=== PATIENT | female | born 1975 | race Caucasian/White ===

== ENCOUNTER 2016-03-26 17:26 | Emergency (ER) | payer MEDICAID, OTHER ==
[2016-03-26] MEDS ORDERED: MORPHINE 2 MG/ML 1ML SYRINGE As Ordered ONE ×2 (18:56→20:46)
[2016-03-26] MEDS ORDERED: METOCLOPRAMIDE INJ 10MG/2ML VIAL (J2765) As Ordered ONE (18:56)
[2016-03-26 19:24] LABS: BASO % 0.4 % (0.0-1.0); EOS # 0.2 K/mm3 (0.0-0.50); EOS % 2.6 % (0.0-3.0); LARGE UNSTAINED CELL # 0.1 K/mm3 (0.0-0.4); LARGE UNSTAINED CELL % 1.6 % (0.0-4.0); LYMPH # 2.2 K/mm3 (1.5-4.5); LYMPH % 36.4 % (24.0-44.0); MEAN CORPUSCULAR HEMOGLOBIN 29.2 pg (27.0-33.0); MEAN CORPUSCULAR HGB CONC 34.2 g/dl (32.0-36.5); MEAN CORPUSCULAR VOLUME 85.3 fl (80.0-96.0); MONO # 0.3 K/mm3 (0.0-0.8); MONO % 5.2 % (0.0-5.0); NEUTROPHILS # 3.2 K/mm3 (1.8-7.7); NEUTROPHILS % 53.8 % (36.0-66.0); PLATELET COUNT, AUTOMATED 187 k/mm3 (150-450); WHITE BLOOD COUNT 5.9 K/mm3 (4.0-10.0)
[2016-03-26 19:32] LABS: INR 1.02
[2016-03-26] MEDS ORDERED: methylPREDNISolone INJ 125 MG/2 ML VIAL (J2930) As Ordered ONE (19:37)
[2016-03-26] MEDS ORDERED: diphenhydrAMINE INJ 50MG/ML VIAL (J1200) As Ordered ONE (19:37)
[2016-03-26 19:50] LABS: ALBUMIN 4.3 GM/DL (3.2-5.2); ALBUMIN/GLOBULIN RATIO 1.16 (1.00-1.93); ALKALINE PHOSPHATASE 71 U/L (45-117); ALT/SGPT 37 U/L (12-78); AMYLASE 60 U/L (25-115); ANION GAP 8 MEQ/L (8-16); AST/SGOT 15 U/L (15-37); BILIRUBIN,DIRECT < 0.1 MG/DL (0.0-0.2); BILIRUBIN,TOTAL 0.3 MG/DL (0.2-1.0); BLOOD UREA NITROGEN 18 MG/DL (7-18); CALCIUM LEVEL 8.9 MG/DL (8.5-10.1); CARBON DIOXIDE LEVEL 29 MEQ/L (21-32); CHLORIDE LEVEL 104 MEQ/L (98-107); CREATININE FOR GFR 0.66 MG/DL (0.55-1.02); GLOMERULAR FILTRATION RATE > 60.0 (>60); GLUCOSE, FASTING 84 MG/DL (70-105); POTASSIUM SERUM 3.6 MEQ/L (3.5-5.1); SODIUM LEVEL 141 MEQ/L (136-145)
[2016-03-26] MEDS ORDERED: GASTROGRAFIN SOLUTION 30ML (Q9963) As Ordered ONE (19:50)
[2016-03-26] MEDS ORDERED: ISOVUE-370 76% 100ML VIAL (Q9967) As Ordered ONE (21:32)
[2016-03-26] MEDS ORDERED: FAMOTIDINE/NS 20 MG/50 ML BAG (S0028) As Ordered ONE (22:00)
--- NOTE | 2016-03-26 23:30 | REPUSA ---
CT of the abdomen and pelvis without contrast Clinical statement: Pain. Technique: Multiple axial CT images were obtained from the base of the lungs to the floor of the pelv is utilizing 5 mm axial slices after administration of oral contrast. Coronal and sagittal reconstruc tions were also obtained. No comparison is available. Findings: Chest: The visualized lung bases are clear. Abdomen: The kidneys are normal in size bilaterally. There is no evidence of hydronephrosis or nephro lithiasis. The liver, spleen, pancreas, and adrenal glands are unremarkable. The aorta demonstrates n ormal caliber and contour. There is no abdominal lymphadenopathy or ascites. Pelvis: The bowel is unremarkable, with no obstructive or inflammatory changes. The urinary bladder i s within normal limits. There is no pelvic lymphadenopathy or ascites. The other pelvic structures ap pear unremarkable. Bones: There are no suspicious osseous abnormalities seen. Impression: Unremarkable CT examination of the abdomen and pelvis.
[2016-03-27] MEDS ORDERED: NITROFURANTOIN (MACROBID) 100 MG CAP As Ordered ONE (00:25)
--- NOTE | 2016-03-27 00:35 | EDDOCDS ---
Physician Documentation [facility] Name: Efrain Carreon Age: 40 yrs Sex: Female : 1975 Arrival Date: 03/26/2016 Time: 17:26 Bed I2 / M2 Private MD: NO PRIMARY PHYSICIAN, . Disposition: 03/27/16 00:25 Discharged to Home/Self Care. Impression: Hemorrhage of anus and rectum, Urinary tract infection, site not specified. - Condition is Stable. - Discharge Instructions: Gastrointestinal Bleeding, Urinary Tract Infection. - Prescriptions for Macrobid 100 mg Oral Capsule - take 100 milligram by ORAL route every 12 hours for 10 days; 20 capsule. - Medication Reconciliation, Local Pharmacy Hours form. - Follow up: Jose Rogers MD; When: 1 - 2 days; Reason: Recheck today's complaints, Continuance of care. Follow up: [facility]; When: 2 - 3 days; Reason: Recheck today's complaints, Continuance of care. - Problem is new. - Symptoms have improved. - Notes: USE MEDICATION INSTRUCTED, CALL DR ROGERS TOMORROW TO SCHEDULE FOLLOW UP FOR COLONOSCOPY, RETURN TO THE ER IF BLEEDING WORSENS, SHORTNESS OF BREATH, DIZZINESS, INCREASING PAIN OR OTHER CONCERNING SYMPTOMS ARISE Historical: - Allergies: IV Contrast; Zofran; Zosyn; - Home Meds: 1. none - PMHx: Asthma; Constipation, Chronic; - PSHx: Gastric Bypass (2014); Cholecystectomy; [partial hysterectomy; Appendectomy; Adenoidectomy; Tonsillectomy; - Social history: Smoking status: Patient states was never smoker of tobacco. No barriers to communication noted, The patient speaks fluent Pashto, Speaks appropriately for age. - Family history: Not pertinent. - : The pt / caregiver states he / she is not on anticoagulants. Home medication list is obtained from the patient. - Exposure Risk Screening:: None identified. 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 3 in. (160.02 cm) (R); Pain 9/10; 20:54 BP 125 / 67; Pulse 77; Resp 18; Pulse Ox 100% on R/A; Pain 9/10; kc3 20:54 Pain 9/10; kc3 21:41 BP 114 / 61; Pulse 75; Resp 18; Pulse Ox 97% on R/A; Pain 6/10; kc3 03/27 00:31 BP 116 / 56 RA Sitting (auto/reg); Pulse 68 MON; Resp 18 S; Temp 99.5(TE); Pulse Ox 96% ka4 on R/A; Pain 5/10; 03/26 17:28 Body Mass Index 22.32 (57.15 kg, 160.02 cm) gr2 MDM: 03/26 18:45 Undress patient appropriately for examination ordered. ck7 18:45 IV Saline Lock ordered. ck7 18:45 NS 0.9% 1000 ml IV at bolus once ordered. ck7 18:45 Metoclopramide 10 mg IV at 40 mg/hr once over 15 mins ordered. ck7 18:46 morphine 2 mg IVP once ordered. ck7 18:46 NOTHING BY MOUTH+DIET ordered. EDMS 18:47 Amylase Ordered. EDMS 18:47 Basic Metabolic Profile Ordered. EDMS 18:47 CBC with Diff Ordered. EDMS 18:47 Lipase Ordered. EDMS 18:47 Liver Profile Ordered. EDMS 18:47 Urinalysis Ordered. EDMS 18:47 Pt & Aptt Ordered. EDMS 18:47 Urine Culture Ordered. EDMS 19:20 Financial registration complete. [email or web address] 19:31 diphenhydrAMINE 50 mg IVP once ordered. ck7 19:31 Solu-MEDROL 125 mg IVP once ordered. ck7 19:50 Diatrizoate Meglumine & Sodium Liquid 10 ml PO once; mix in 290cc of water ordered. mgs 19:50 Diatrizoate Meglumine & Sodium Liquid 10 ml PO once; mix in 290cc of water ordered. mgs 20:07 CBC with Diff Reviewed. ck7 20:07 Urinalysis Reviewed. ck7 20:07 Amylase Reviewed. ck7 20:07 Basic Metabolic Profile Reviewed. ck7 20:07 Lipase Reviewed. ck7 20:07 Liver Profile Reviewed. ck7 20:07 Pt & Aptt Reviewed. ck7 20:45 morphine 2 mg IVP once ordered. ck7 20:50 [facility] Payment Agreement was scanned into [employer] and attached to record. [email or web address] 21:58 Famotidine 20 mg IVPB once over 30 mins; dilute in 50mL of NS ordered. ck7 22:17 CT ABD & PELVIS W/O CONTRAST Ordered. EDMS 03/27 00:18 CT ABD & PELVIS W/O CONTRAST Reviewed. ck7 00:23 Nitrofurantoin 100 mg PO once ordered. ck7 Administered Medications: 03/26 19:12 Drug: NS 0.9% 1000 ml [sodium chloride 0.9 % injection solution] Route: IV; Rate: dsf bolus; Site: left antecubital; 20:54 Follow up: IV Status: Completed infusion kc3 19:12 Drug: Metoclopramide 10 mg [metoclopramide 5 mg/mL injection solution] Route: IV; Rate: dsf 40 mg/hr; Infused Over: 15 mins; Site: left antecubital; 20:54 Follow up: Response: Nausea is decreased; IV Status: Completed infusion kc3 19:12 Drug: morphine 2 mg [morphine 2 mg/mL intravenous cartridge (1 mL)] Route: IVP; Site: dsf left antecubital; 20:54 Follow up: Pain 9/10 Adult; Response: Pain is unchanged, physician notified kc3 19:48 Drug: diphenhydrAMINE 50 mg [diphenhydramine 50 mg/mL injection solution (1 mL)] Route: mgs IVP; Site: left antecubital; 20:53 Follow up: Response: No Adverse Reaction kc3 19:48 Drug: Solu-MEDROL 125 mg [Solu-Medrol 500 mg intravenous solution (125 mg)] Route: IVP; mgs Site: right antecubital; 20:54 Follow up: Response: No Adverse Reaction kc3 20:00 Drug: Diatrizoate Meglumine & Sodium 10 ml [diatrizoate meglumine and diat.sodium 66 dsf %-10 % oral solution (10 mL)] Route: PO; 20:42 Drug: Diatrizoate Meglumine & Sodium 10 ml [diatrizoate meglumine and diat.sodium 66 kc3 %-10 % oral solution (10 mL)] Route: PO; 20:50 Drug: morphine 2 mg [morphine 2 mg/mL intravenous cartridge (1 mL)] Route: IVP; Site: kc3 left antecubital; 21:41 Follow up: Response: Pain is decreased; see VS for followup kc3 22:08 Drug: Famotidine 20 mg [famotidine 10 mg/mL intravenous solution] Route: IVPB; Infused kc3 Over: 30 mins; Site: left antecubital; 03/27 00:25 Follow up: IV Status: Completed infusion; IV Intake: 50ml dsf 00:27 Drug: Nitrofurantoin 100 mg Route: PO; dsf Signatures: Dispatcher [employer] EDMS Iman Moreno, RN RN srm Donovan Han, RPA-C [id number]-[id number] Kaylee Garcia,PACKAGING SUPERVISOR PACKAGING SUPERVISOR ka4 Gildardo TorresRN RN Clarisa Arenas RN RN kc3 Maria T Christine, Reg Reg ks16 Cat Ortiz RN dsf The chart was reviewed and I authenticate all verbal orders and agree with the evaluation and treatment provided.Corrections: (The following items were deleted from the chart) 03/26 22:17 19:32 CT ABD & PELVIS WITH CONTRAST+CT ordered. EDMS EDMS Attachments: 20:50 [facility] Payment Agreement [email or web address] MTDD
--- NOTE | 2016-03-27 00:35 | EDDOCDS ---
Nurse's Notes [facility] Name: Efrain Carreon Age: 40 yrs Sex: Female : 1975 Arrival Date: 03/26/2016 Time: 17:26 Bed I2 / M2 Private MD: NO PRIMARY PHYSICIAN, . Diagnosis: Hemorrhage of anus and rectum;Urinary tract infection, site not specified Presentation: 03/26 17:31 Presenting complaint: Patient states: Vaginal bleeding all of a sudden tonight. became srm nausea after seeing blood. had hysterectomy 3 yrs ago. had gastric bypass 1.5 yr ago and has hx of constipation since. lower abd pain for a long time. Risk factors: The patient reports no loss of conciousness prior to arrival. The patient has had a hysterectomy less than five years ago. This patient has not begun menopause. Adult Sepsis Screening: The patient does not have new or worsening altered mentation. Patient's respiratory rate is less than 22. Systolic blood pressure is greater than 100. Patient has a qSOFA score of 0- Negative Sepsis Screen. Suicide/Homicide risk assessment- the patient denies having any suicidal and/or homicidal ideations and does not present with any other emotional, behavioral or mental health complaints. Status: Patient is not a medical service representative or dependent. Transition of care: patient was not received from another setting of care. 17:31 Acuity: LISS Level 3 [facility] 17:31 Method Of Arrival: Walkin/Carried/Asstd srm Triage Assessment: 17:34 General: Appears in no apparent distress, Behavior is appropriate for age, cooperative. srm Pain: Pain currently is 9 out of 10 on a pain scale. : Reports vaginal bleeding that is heavy flow. 17:34 HIV screening NA for this visit Offered previously. GI: other dry heaves. 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 none - PMHx: Asthma; Constipation, Chronic; - PSHx: Gastric Bypass (2014); Cholecystectomy; [partial hysterectomy; Appendectomy; Adenoidectomy; Tonsillectomy; - Social history: Smoking status: Patient states was never smoker of tobacco. No barriers to communication noted, The patient speaks fluent Romanian, Speaks appropriately for age. - Family history: Not pertinent. - : The pt / caregiver states he / she is not on anticoagulants. Home medication list is obtained from the patient. - Exposure Risk Screening:: None identified. Screenin:55 Screening information is obtained from the patient. Fall risk: No risks identified. kc3 Assistance ADL's: requires no assistance with activities of daily living. Abuse/DV Screen: The patient / caregiver reports he/she is: not in a situation that causes fear, pain or injury. Nutritional screening: No deficits noted. home support is adequate. 22:56 Advance Directives: Currently, there is no health care proxy. dsf Assessment: 20:52 General: Appears in no apparent distress, comfortable, Behavior is appropriate for age, kc3 cooperative. Pain: Location: abdomen Pain currently is 9 out of 10 on a pain scale. Neurological: Level of Consciousness is awake, alert, obeys commands, Oriented to person, place, time. Respiratory: Respiratory effort is even, unlabored. GI: Reports lower abdominal pain, nausea. Derm: Skin is pink, warm & dry. Musculoskeletal: Circulation, motion, and sensation intact. 21:40 General: Appears in no apparent distress, comfortable, Behavior is appropriate for age, kc3 cooperative, Pt reports pain has decreased.. Neurological: Level of Consciousness is awake, alert, obeys commands, Oriented to person, place, time. Respiratory: Respiratory effort is even, unlabored. GI: Reports nausea. Derm: Skin is pink, warm & dry. Musculoskeletal: Circulation, motion, and sensation intact. 22:34 General: rr even and unlabored, skin w/d/i. a&ox3, offers no complaints.. af2 22:44 General: Appears in no apparent distress, comfortable, Behavior is appropriate for age, dsf cooperative. Pain: Pain currently is 6 out of 10 on a pain scale. Neurological: Level of Consciousness is awake, alert. Cardiovascular: Capillary refill < 3 seconds. Respiratory: Airway is patent Respiratory effort is even, unlabored, Respiratory pattern is regular, symmetrical. GI: Denies nausea. Derm: Skin is pink, warm & dry. 22:56 General: pt just returned from [place] . dsf 03/27 00:32 General: Appears in no apparent distress, comfortable, Behavior is appropriate for age, ka4 cooperative, pleasant. Respiratory: Airway is patent Respiratory effort is even, unlabored, Respiratory pattern is regular, symmetrical. Derm: Skin is pink, warm & dry. Vital Signs: 03/26 17:28 BP 116 / 64; Pulse 95; Resp 18 S; Temp 96.9(T); Pulse Ox 100% on R/A; Weight 57.15 kg gr2 (R); Height 5 ft. 3 in. (160.02 cm) (R); Pain 9/10; 20:54 BP 125 / 67; Pulse 77; Resp 18; Pulse Ox 100% on R/A; Pain 9/10; kc3 20:54 Pain 9/10; kc3 21:41 BP 114 / 61; Pulse 75; Resp 18; Pulse Ox 97% on R/A; Pain 6/10; kc3 03/27 00:31 BP 116 / 56 RA Sitting (auto/reg); Pulse 68 MON; Resp 18 S; Temp 99.5(TE); Pulse Ox 96% ka4 on R/A; Pain 5/10; 03/26 17:28 Body Mass Index 22.32 (57.15 kg, 160.02 cm) gr2 Vitals: 03/26 17:28 Log In Time: March 26, 2016 at 17:28. RN notified that patient meets Red Flag gr2 criteria. ED Course: 17:27 Patient visited by Yamil Vanegas. gr2 17:27 Patient moved to Waiting gr2 17:28 NO PRIMARY PHYSICIAN, . is Private Physician. gr2 17:29 Patient visited by Yamil Vanegas. gr2 17:30 Patient moved to Pre RCE gr2 17:33 Triage Initiated srm 17:41 Patient moved to Triage 2 srm 18:42 Donovan Han RPA-C is PHCP. ck7 18:42 Jeffrey Hannah MD is Attending Physician. ck7 18:42 Patient visited by Donovan Han RPA-C. ck7 18:49 Patient moved to I2 / M2 mdr 18:53 Pt greeted and oriented to ED. Patient advised of names of staff involved in care, ajs location of call cleaning, wait times and NPO status. Accompanied by Family Member, Patient has correct armband on for positive identification. Placed in gown. Bed in low position. Call light in reach. Side rails up X 1. 18:54 Patient visited by Xenia Israel. ajs 19:05 Inserted saline lock: 20 gauge in left antecubital area The patient tolerated the kcs procedure well. 19:12 Pt & Aptt Sent. dsf 19:12 Amylase Sent. dsf 19:12 Basic Metabolic Profile Sent. dsf 19:12 CBC with Diff Sent. dsf 19:12 Lipase Sent. dsf 19:12 Liver Profile Sent. dsf 19:30 Patient visited by Donovan Han RPA-C. ck7 20:06 Patient visited by Donovan Han RPA-C. ck7 20:44 Patient visited by Donovan Han RPA-C. ck7 20:50 [facility] Payment Agreement was scanned into [employer] and attached to record. ks16 20:55 Patient name changed from Efrain\S\\S\Lajuett\S\ to Efrain\S\ \S\Lajuett. EDMS 20:55 The patient / caregiver is instructed regarding the plan of care and ED course. kc3 21:38 Patient visited by Donovan Han RPA-C. ck7 21:41 Patient visited by Clarisa Boles,FEDERICA. kc3 22:34 Patient visited by Milagros Jones,FEDERICA. af2 22:36 Patient visited by Milagros Jones,FEDERICA. af2 22:45 Patient visited by Cat Ortiz,FEDERICA. dsf 22:56 No procedures done that require assistance. dsf 23:25 Patient visited by Donovan Han RPA-C. ck7 23:44 Patient visited by Xenia Israel. ajs 03/27 00:15 CT ABD & PELVIS W/O CONTRAST Returned. EDMS 00:18 Patient visited by Donovan Han RPA-C. ck7 00:23 Jose Rogers MD is Referral Physician. ck7 00:24 [facility] is Referral Physician. ck7 00:33 Discontinued IV lock intact, bleeding controlled, pressure dressing applied, No ka4 redness/swelling at site. Administered Medications: 03/26 19:12 Drug: NS 0.9% 1000 ml [sodium chloride 0.9 % injection solution] Route: IV; Rate: dsf bolus; Site: left antecubital; 20:54 Follow up: IV Status: Completed infusion kc3 19:12 Drug: Metoclopramide 10 mg [metoclopramide 5 mg/mL injection solution] Route: IV; Rate: dsf 40 mg/hr; Infused Over: 15 mins; Site: left antecubital; 20:54 Follow up: Response: Nausea is decreased; IV Status: Completed infusion kc3 19:12 Drug: morphine 2 mg [morphine 2 mg/mL intravenous cartridge (1 mL)] Route: IVP; Site: dsf left antecubital; 20:54 Follow up: Pain 11/17 Adult; Response: Pain is unchanged, physician notified kc3 19:48 Drug: diphenhydrAMINE 50 mg [diphenhydramine 50 mg/mL injection solution (1 mL)] Route: mgs IVP; Site: left antecubital; 20:53 Follow up: Response: No Adverse Reaction kc3 19:48 Drug: Solu-MEDROL 125 mg [Solu-Medrol 500 mg intravenous solution (125 mg)] Route: IVP; mgs Site: right antecubital; 20:54 Follow up: Response: No Adverse Reaction kc3 20:00 Drug: Diatrizoate Meglumine & Sodium 10 ml [diatrizoate meglumine and diat.sodium 66 dsf %-10 % oral solution (10 mL)] Route: PO; 20:42 Drug: Diatrizoate Meglumine & Sodium 10 ml [diatrizoate meglumine and diat.sodium 66 kc3 %-10 % oral solution (10 mL)] Route: PO; 20:50 Drug: morphine 2 mg [morphine 2 mg/mL intravenous cartridge (1 mL)] Route: IVP; Site: kc3 left antecubital; 21:41 Follow up: Response: Pain is decreased; see VS for followup kc3 22:08 Drug: Famotidine 20 mg [famotidine 10 mg/mL intravenous solution] Route: IVPB; Infused kc3 Over: 30 mins; Site: left antecubital; 03/27 00:25 Follow up: IV Status: Completed infusion; IV Intake: 50ml dsf 00:27 Drug: Nitrofurantoin 100 mg Route: PO; dsf Intake: 00:25 IV: 50.00ml; Total: 50.00ml. dsf Order Results: Lab Order: Amylase; SPEC'M 03/26/16 19:07 Test: AMYLASE; Value: 60; Range: 25-115; Units: U/L; Status: F Lab Order: Basic Metabolic Profile; SPEC'M 03/26/16 19:07 Test: GLUCOSE, FASTING; Value: 84; Range: 70-105; Units: MG/DL; Status: F Test: BLOOD UREA NITROGEN; Value: 18; Range: 7-18; Units: MG/DL; Status: F Test: CREATININE FOR GFR; Value: 0.66; Range: 0.55-1.02; Units: MG/DL; Status: F Test: GLOMERULAR FILTRATION RATE; Value: > 60.0; Range: >60; Status: F Test: SODIUM LEVEL; Value: 141; Range: 136-145; Units: MEQ/L; Status: F Test: POTASSIUM SERUM; Value: 3.6; Range: 3.5-5.1; Units: MEQ/L; Status: F Test: CHLORIDE LEVEL; Value: 104; Range: 98-107; Units: MEQ/L; Status: F Test: CARBON DIOXIDE LEVEL; Value: 29; Range: 21-32; Units: MEQ/L; Status: F Test: ANION GAP; Value: 8; Range: 8-16; Units: MEQ/L; Status: F Test: CALCIUM LEVEL; Value: 8.9; Range: 8.5-10.1; Units: MG/DL; Status: F Test Note: ; Units are mL/min/1.73 m2 Chronic Kidney Disease Staging per NKF: Stage I & II GFR >=60 Normal to Mildly Decreased Stage III GFR 30-59 Moderately Decreased Stage IV GFR 15-29 Severely Decreased Stage V GFR <15 Very Little GFR Left ESRD GFR <15 on STAFFING OPERATIONS MANAGER Lab Order: CBC with Diff; SPEC'M 03/26/16 19:07 Test: WHITE BLOOD COUNT; Value: 5.9; Range: 4.0-10.0; Units: K/mm3; Status: F Test: RED BLOOD COUNT; Value: 4.91; Range: 4.00-5.40; Units: M/mm3; Status: F Test: HEMOGLOBIN; Value: 14.3; Range: 12.0-16.0; Units: g/dl; Status: F Test: HEMATOCRIT; Value: 41.9; Range: 36.0-47.0; Units: %; Status: F Test: MEAN CORPUSCULAR VOLUME; Value: 85.3; Range: 80.0-96.0; Units: fl; Status: F Test: MEAN CORPUSCULAR HEMOGLOBIN; Value: 29.2; Range: 27.0-33.0; Units: pg; Status: F Test: MEAN CORPUSCULAR HGB CONC; Value: 34.2; Range: 32.0-36.5; Units: g/dl; Status: F Test: RED CELL DISTRIBUTION WIDTH; Value: 12.0; Range: 11.5-14.5; Units: %; Status: F Test: PLATELET COUNT, AUTOMATED; Value: 187; Range: 150-450; Units: k/mm3; Status: F Test: NEUTROPHILS %; Value: 53.8; Range: 36.0-66.0; Units: %; Status: F Test: LYMPH %; Value: 36.4; Range: 24.0-44.0; Units: %; Status: F Test: MONO %; Value: 5.2; Range: 0.0-5.0; Abnormal: Above high normal; Units: %; Status: F Test: EOS %; Value: 2.6; Range: 0.0-3.0; Units: %; Status: F Test: BASO %; Value: 0.4; Range: 0.0-1.0; Units: %; Status: F Test: LARGE UNSTAINED CELL %; Value: 1.6; Range: 0.0-4.0; Units: %; Status: F Test: NEUTROPHILS #; Value: 3.2; Range: 1.8-7.7; Units: K/mm3; Status: F Test: LYMPH #; Value: 2.2; Range: 1.5-4.5; Units: K/mm3; Status: F Test: MONO #; Value: 0.3; Range: 0.0-0.8; Units: K/mm3; Status: F Test: EOS #; Value: 0.2; Range: 0.0-0.50; Units: K/mm3; Status: F Test: BASO #; Value: 0.0; Range: 0.0-0.2; Units: K/mm3; Status: F Test: LARGE UNSTAINED CELL #; Value: 0.1; Range: 0.0-0.4; Units: K/mm3; Status: F Lab Order: Lipase; SPEC'M 03/26/16 19:07 Test: LIPASE; Value: 224; Range: 73-393; Units: U/L; Status: F Lab Order: Liver Profile; SPEC'M 03/26/16 19:07 Test: AST/SGOT; Value: 15; Range: 15-37; Units: U/L; Status: F Test: ALT/SGPT; Value: 37; Range: 12-78; Units: U/L; Status: F Test: ALKALINE PHOSPHATASE; Value: 71; Range: 45-117; Units: U/L; Status: F Test: BILIRUBIN,TOTAL; Value: 0.3; Range: 0.2-1.0; Units: MG/DL; Status: F Test: BILIRUBIN,DIRECT; Value: < 0.1; Range: 0.0-0.2; Units: MG/DL; Status: F Test: TOTAL PROTEIN; Value: 8.0; Range: 6.4-8.2; Units: GM/DL; Status: F Test: ALBUMIN; Value: 4.3; Range: 3.2-5.2; Units: GM/DL; Status: F Test: ALBUMIN/GLOBULIN RATIO; Value: 1.16; Range: 1.00-1.93; Status: F Lab Order: Urinalysis; SPEC'M 03/26/16 19:08 Test: APPEARANCE, URINE; Value: CLEAR; Range: CLEAR; Status: F Test: COLOR, URINE; Value: YELLOW; Range: YELLOW; Status: F Test: PH,URINE; Value: 5.0; Range: 5.0-9.0; Units: UNITS; Status: F Test: SPECIFIC GRAVITY URINE AUTO; Value: 1.030; Range: 1.002-1.035; Status: F Test: PROTEIN, URINE AUTO; Value: NEGATIVE; Range: NEGATIVE; Units: mg/dL; Status: F Test: GLUCOSE, URINE (UA) AUTO; Value: NEGATIVE; Range: NEGATIVE; Units: mg/dL; Status: F Test: KETONE, URINE AUTO; Value: TRACE; Range: NEGATIVE; Abnormal: Above high normal; Units: mg/dL; Status: F Test: UROBILINOGEN, URINE AUTO; Value: 0.2; Range: 0.0-2.0; Units: mg/dL; Status: F Test: BILIRUBIN, URINE AUTO; Value: NEGATIVE; Range: NEGATIVE; Status: F Test: NITRITE, URINE AUTO; Value: POSITIVE; Range: NEGATIVE; Status: F Test: LEUKOCYTE ESTERASE, URINE AUTO; Value: 2+; Range: NEGATIVE; Abnormal: Above high normal; Status: F Test: BLOOD, URINE BLOOD; Value: 1+; Range: NEGATIVE; Abnormal: Above high normal; Status: F Test: WBC, URINE AUTO; Value: 26; Range: 0-3; Abnormal: Above high normal; Units: /HPF; Status: F Test: RBC, URINE AUTO; Value: 2; Range: 0-3; Units: /HPF; Status: F Test: BACTERIA, URINE AUTO; Value: 3+; Range: NEGATIVE; Abnormal: Above high normal; Status: F Test: SQUAMOUS EPITHELIAL CELL UR AU; Value: 1; Range: 0-6; Units: /HPF; Status: F Test: MUCUS, URINE; Value: SMALL; Range: NEGATIVE; Status: F Test: HYALINE CAST, URINE AUTO; Value: 0; Range: 0-1; Units: /LPF; Status: F Lab Order: Pt & Aptt; SPEC'M 03/26/16 19:07 Test: PROTHROMBIN TIME; Value: 13.5; Range: 12.3-14.5; Units: SECONDS; Status: F Test: INR; Value: 1.02; Status: F Test: PARTIAL THROMBOPLASTIN TIME; Value: 29.5; Range: 26.6-37.1; Units: SECONDS; Status: F Test Note: ; THERAPUTIC HUMAN INR VALUES INDICATIONS NORMAL RANGES PROPHYLAXIS/TREATMENT OF: VENOUS THROMBOSIS 2.0-3.0 PULMONARY EMBOLISM 2.0-3.0 PREVENTION OF SYSTEMIC EMBOLISM FROM: TISSUE HEART VALVES 2.0-3.0 ACUTE MYOCARDIAL INFARCTION 2.0-3.0 VALVULAR HEART DISEASE 2.0-3.0 ATRIAL FIBRILLATION 2.0-3.0 MECHANICAL VALVES(HIGH RISK) 2.5-3.5 RECURRENT MYOCARDIAL INFARCTION 2.5-3.5 Radiology Order: CT ABD & PELVIS W/O CONTRAST Test: CT ABD & PELVIS W/O CONTRAST REASON FOR EXAMINATION: ABD PAIN, RECTAL BLEEDING R/O MASS/IBD; ; CT of the abdomen and pelvis without contrast; Clinical statement: Pain.; Technique: Multiple axial CT images were obtained from the base of the lungs to the floor of the pelv; is utilizing 5 mm axial slices after administration of oral contrast. Coronal and sagittal reconstruc; tions were also obtained.; No comparison is available.; Findings:; Chest: The visualized lung bases are clear.; Abdomen: The kidneys are normal in size bilaterally. There is no evidence of hydronephrosis or nephro; lithiasis. The liver, spleen, pancreas, and adrenal glands are unremarkable. The aorta demonstrates n; ormal caliber and contour. There is no abdominal lymphadenopathy or ascites.; Pelvis: The bowel is unremarkable, with no obstructive or inflammatory changes. The urinary bladder i; s within normal limits. There is no pelvic lymphadenopathy or ascites. The other pelvic structures ap; pear unremarkable.; Bones: There are no suspicious osseous abnormalities seen.; Impression: Unremarkable CT examination of the abdomen and pelvis.; ; Outcome: 03/26 22:53 CT Study completed. kc3 03/27 00:25 Discharge ordered by Provider. ck7 00:32 Discharge Assessment: Patient awake, alert and oriented x 3. No cognitive and/or ka4 functional deficits noted. Patient verbalized understanding of disposition instructions. The following High Risk Discharge criteria are identified: None. Discharged to home ambulatory, with significant other. Condition: good Condition: stable. Discharge instructions given to patient, Instructed on discharge instructions, follow up and referral plans. medication usage, Demonstrated understanding of instructions, medications, Pt was receptive of discharge instructions/ teaching. Prescriptions given X 1. Property :Personal belongings accompany Pt. 00:33 Discharge Assessment: patient administered narcotics - yes. Pt provided with safe ka4 discharge. 00:34 Patient left the ED. ka4 Signatures: Dispatcher [employer] EDMS Cristal Galvin RN Iman Gay RN RN srm Fuller, Desiree, RN RN dsf Slate, Amanda ajs Kwaczala, Christopher, KALEB-C RPA-Cck7 Yamil Vanegas gr2 Kaylee Garcia,TORPEDO SPECIALIST TORPEDO SPECIALIST ka4 Gildardo Torres RN RN Milagros Okeefe RN RN af2 Eliseo Sandoval, DRY MILL OPERATOR DRY MILL OPERATOR Clarisa Johnson,[place] RN kc3 Maria T Christine, Reg Reg ks16 MTDD
--- NOTE | 2016-03-29 01:34 | EDDOCDS ---
Physician Documentation [facility] Name: Efrain Carreon Age: 40 yrs Sex: Female : 1975 Arrival Date: 03/26/2016 Time: 17:26 Bed I2 / M2 Private MD: NO PRIMARY PHYSICIAN, . Disposition: 03/27/16 00:25 Discharged to Home/Self Care. Impression: Hemorrhage of anus and rectum, Urinary tract infection, site not specified. - Condition is Stable. - Discharge Instructions: Gastrointestinal Bleeding, Urinary Tract Infection. - Prescriptions for Macrobid 100 mg Oral Capsule - take 100 milligram by ORAL route every 12 hours for 10 days; 20 capsule. - Medication Reconciliation, Local Pharmacy Hours form. - Follow up: Jose Rogers MD; When: 1 - 2 days; Reason: Recheck today's complaints, Continuance of care. Follow up: [facility]; When: 2 - 3 days; Reason: Recheck today's complaints, Continuance of care. - Problem is new. - Symptoms have improved. - Notes: USE MEDICATION INSTRUCTED, CALL DR ROGERS TOMORROW TO SCHEDULE FOLLOW UP FOR COLONOSCOPY, RETURN TO THE ER IF BLEEDING WORSENS, SHORTNESS OF BREATH, DIZZINESS, INCREASING PAIN OR OTHER CONCERNING SYMPTOMS ARISE Historical: - Allergies: IV Contrast; Zofran; Zosyn; - Home Meds: 1. none - PMHx: Asthma; Constipation, Chronic; - PSHx: Gastric Bypass (2014); Cholecystectomy; [partial hysterectomy; Appendectomy; Adenoidectomy; Tonsillectomy; - Social history: Smoking status: Patient states was never smoker of tobacco. No barriers to communication noted, The patient speaks fluent Romansh, Speaks appropriately for age. - Family history: Not pertinent. - : The pt / caregiver states he / she is not on anticoagulants. Home medication list is obtained from the patient. - Exposure Risk Screening:: None identified. 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 3 in. (160.02 cm) (R); Pain 9/10; 20:54 BP 125 / 67; Pulse 77; Resp 18; Pulse Ox 100% on R/A; Pain 9/10; kc3 20:54 Pain 9/10; kc3 21:41 BP 114 / 61; Pulse 75; Resp 18; Pulse Ox 97% on R/A; Pain 6/10; kc3 03/27 00:31 BP 116 / 56 RA Sitting (auto/reg); Pulse 68 MON; Resp 18 S; Temp 99.5(TE); Pulse Ox 96% ka4 on R/A; Pain 5/10; 03/26 17:28 Body Mass Index 22.32 (57.15 kg, 160.02 cm) gr2 MDM: 03/26 18:45 Undress patient appropriately for examination ordered. ck7 18:45 IV Saline Lock ordered. ck7 18:45 NS 0.9% 1000 ml IV at bolus once ordered. ck7 18:45 Metoclopramide 10 mg IV at 40 mg/hr once over 15 mins ordered. ck7 18:46 morphine 2 mg IVP once ordered. ck7 18:46 NOTHING BY MOUTH+DIET ordered. EDMS 18:47 Amylase Ordered. EDMS 18:47 Basic Metabolic Profile Ordered. EDMS 18:47 CBC with Diff Ordered. EDMS 18:47 Lipase Ordered. EDMS 18:47 Liver Profile Ordered. EDMS 18:47 Urinalysis Ordered. EDMS 18:47 Pt & Aptt Ordered. EDMS 18:47 Urine Culture Ordered. EDMS 19:20 Financial registration complete. ks16 19:31 diphenhydrAMINE 50 mg IVP once ordered. ck7 19:31 Solu-MEDROL 125 mg IVP once ordered. ck7 19:50 Diatrizoate Meglumine & Sodium Liquid 10 ml PO once; mix in 290cc of water ordered. mgs 19:50 Diatrizoate Meglumine & Sodium Liquid 10 ml PO once; mix in 290cc of water ordered. mgs 20:07 CBC with Diff Reviewed. ck7 20:07 Urinalysis Reviewed. ck7 20:07 Amylase Reviewed. ck7 20:07 Basic Metabolic Profile Reviewed. ck7 20:07 Lipase Reviewed. ck7 20:07 Liver Profile Reviewed. ck7 20:07 Pt & Aptt Reviewed. ck7 20:45 morphine 2 mg IVP once ordered. ck7 20:50 [facility] Payment Agreement was scanned into [employer] and attached to record. ks16 21:58 Famotidine 20 mg IVPB once over 30 mins; dilute in 50mL of NS ordered. ck7 22:17 CT ABD & PELVIS W/O CONTRAST Ordered. EDMS 03/27 00:18 CT ABD & PELVIS W/O CONTRAST Reviewed. ck7 00:23 Nitrofurantoin 100 mg PO once ordered. ck7 10:57 T-Sheet-- Draft Copy was scanned into [employer] and attached to record. gb Administered Medications: 03/26 19:12 Drug: NS 0.9% 1000 ml [sodium chloride 0.9 % injection solution] Route: IV; Rate: dsf bolus; Site: left antecubital; 20:54 Follow up: IV Status: Completed infusion kc3 19:12 Drug: Metoclopramide 10 mg [metoclopramide 5 mg/mL injection solution] Route: IV; Rate: dsf 40 mg/hr; Infused Over: 15 mins; Site: left antecubital; 20:54 Follow up: Response: Nausea is decreased; IV Status: Completed infusion kc3 19:12 Drug: morphine 2 mg [morphine 2 mg/mL intravenous cartridge (1 mL)] Route: IVP; Site: dsf left antecubital; 20:54 Follow up: Pain 9/10 Adult; Response: Pain is unchanged, physician notified kc3 19:48 Drug: diphenhydrAMINE 50 mg [diphenhydramine 50 mg/mL injection solution (1 mL)] Route: mgs IVP; Site: left antecubital; 20:53 Follow up: Response: No Adverse Reaction kc3 19:48 Drug: Solu-MEDROL 125 mg [Solu-Medrol 500 mg intravenous solution (125 mg)] Route: IVP; mgs Site: right antecubital; 20:54 Follow up: Response: No Adverse Reaction kc3 20:00 Drug: Diatrizoate Meglumine & Sodium 10 ml [diatrizoate meglumine and diat.sodium 66 dsf %-10 % oral solution (10 mL)] Route: PO; 20:42 Drug: Diatrizoate Meglumine & Sodium 10 ml [diatrizoate meglumine and diat.sodium 66 kc3 %-10 % oral solution (10 mL)] Route: PO; 20:50 Drug: morphine 2 mg [morphine 2 mg/mL intravenous cartridge (1 mL)] Route: IVP; Site: kc3 left antecubital; 21:41 Follow up: Response: Pain is decreased; see VS for followup kc3 22:08 Drug: Famotidine 20 mg [famotidine 10 mg/mL intravenous solution] Route: IVPB; Infused kc3 Over: 30 mins; Site: left antecubital; 03/27 00:25 Follow up: IV Status: Completed infusion; IV Intake: 50ml dsf 00:27 Drug: Nitrofurantoin 100 mg Route: PO; dsf Signatures: Dispatcher [employer] EDMS Iman Moreno, RN RN srm Kim Berg, Reg Reg gb Donovan Han, CHERYC RPA-Cck7 Kaylee Garcia LPN CONSULTANT DIETITIAN ka4 Gildardo Torres RN RN mgs Clarisa Boles RN RN kc3 Maria T Christine, Reg Reg ks16 Cat Ortiz RN dsf The chart was reviewed and I authenticate all verbal orders and agree with the evaluation and treatment provided.Corrections: (The following items were deleted from the chart) 03/26 22:17 19:32 CT ABD & PELVIS WITH CONTRAST+CT ordered. EDMS EDMS Attachments: 20:50 [facility] Payment Agreement ks16 03/27 10:57 T-Sheet-- Draft Copy gb Chart Complete MTDD
--- NOTE | 2016-03-29 01:34 | EDDOCDS ---
Physician Documentation [facility] Name: Efrain Carreon Age: 40 yrs Sex: Female : 1975 Arrival Date: 03/26/2016 Time: 17:26 Bed I2 / M2 Private MD: NO PRIMARY PHYSICIAN, . Disposition: 03/27/16 00:25 Discharged to Home/Self Care. Impression: Hemorrhage of anus and rectum, Urinary tract infection, site not specified. - Condition is Stable. - Discharge Instructions: Gastrointestinal Bleeding, Urinary Tract Infection. - Prescriptions for Macrobid 100 mg Oral Capsule - take 100 milligram by ORAL route every 12 hours for 10 days; 20 capsule. - Medication Reconciliation, Local Pharmacy Hours form. - Follow up: Jose Rogers MD; When: 1 - 2 days; Reason: Recheck today's complaints, Continuance of care. Follow up: [facility]; When: 2 - 3 days; Reason: Recheck today's complaints, Continuance of care. - Problem is new. - Symptoms have improved. - Notes: USE MEDICATION INSTRUCTED, CALL DR ROGERS TOMORROW TO SCHEDULE FOLLOW UP FOR COLONOSCOPY, RETURN TO THE ER IF BLEEDING WORSENS, SHORTNESS OF BREATH, DIZZINESS, INCREASING PAIN OR OTHER CONCERNING SYMPTOMS ARISE Historical: - Allergies: IV Contrast; Zofran; Zosyn; - Home Meds: 1. none - PMHx: Asthma; Constipation, Chronic; - PSHx: Gastric Bypass (2014); Cholecystectomy; [partial hysterectomy; Appendectomy; Adenoidectomy; Tonsillectomy; - Social history: Smoking status: Patient states was never smoker of tobacco. No barriers to communication noted, The patient speaks fluent Kinyarwanda, Speaks appropriately for age. - Family history: Not pertinent. - : The pt / caregiver states he / she is not on anticoagulants. Home medication list is obtained from the patient. - Exposure Risk Screening:: None identified. 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 3 in. (160.02 cm) (R); Pain 9/10; 20:54 BP 125 / 67; Pulse 77; Resp 18; Pulse Ox 100% on R/A; Pain 9/10; kc3 20:54 Pain 9/10; kc3 21:41 BP 114 / 61; Pulse 75; Resp 18; Pulse Ox 97% on R/A; Pain 6/10; kc3 03/27 00:31 BP 116 / 56 RA Sitting (auto/reg); Pulse 68 MON; Resp 18 S; Temp 99.5(TE); Pulse Ox 96% ka4 on R/A; Pain 5/10; 03/26 17:28 Body Mass Index 22.32 (57.15 kg, 160.02 cm) gr2 MDM: 03/26 18:45 Undress patient appropriately for examination ordered. ck7 18:45 IV Saline Lock ordered. ck7 18:45 NS 0.9% 1000 ml IV at bolus once ordered. ck7 18:45 Metoclopramide 10 mg IV at 40 mg/hr once over 15 mins ordered. ck7 18:46 morphine 2 mg IVP once ordered. ck7 18:46 NOTHING BY MOUTH+DIET ordered. EDMS 18:47 Amylase Ordered. EDMS 18:47 Basic Metabolic Profile Ordered. EDMS 18:47 CBC with Diff Ordered. EDMS 18:47 Lipase Ordered. EDMS 18:47 Liver Profile Ordered. EDMS 18:47 Urinalysis Ordered. EDMS 18:47 Pt & Aptt Ordered. EDMS 18:47 Urine Culture Ordered. EDMS 19:20 Financial registration complete. [email or web address] 19:31 diphenhydrAMINE 50 mg IVP once ordered. ck7 19:31 Solu-MEDROL 125 mg IVP once ordered. ck7 19:50 Diatrizoate Meglumine & Sodium Liquid 10 ml PO once; mix in 290cc of water ordered. mgs 19:50 Diatrizoate Meglumine & Sodium Liquid 10 ml PO once; mix in 290cc of water ordered. mgs 20:07 CBC with Diff Reviewed. ck7 20:07 Urinalysis Reviewed. ck7 20:07 Amylase Reviewed. ck7 20:07 Basic Metabolic Profile Reviewed. ck7 20:07 Lipase Reviewed. ck7 20:07 Liver Profile Reviewed. ck7 20:07 Pt & Aptt Reviewed. ck7 20:45 morphine 2 mg IVP once ordered. ck7 20:50 [facility] [place] Agreement was scanned into kontoblick and attached to record. [email or web address] 21:58 Famotidine 20 mg IVPB once over 30 mins; dilute in 50mL of NS ordered. ck7 22:17 CT ABD & PELVIS W/O CONTRAST Ordered. EDMS 03/27 00:18 CT ABD & PELVIS W/O CONTRAST Reviewed. ck7 00:23 Nitrofurantoin 100 mg PO once ordered. ck7 10:57 T-Sheet-- Draft Copy was scanned into kontoblick and attached to record. gb Administered Medications: 03/26 19:12 Drug: NS 0.9% 1000 ml [sodium chloride 0.9 % injection solution] Route: IV; Rate: dsf bolus; Site: left antecubital; 20:54 Follow up: IV Status: Completed infusion kc3 19:12 Drug: Metoclopramide 10 mg [metoclopramide 5 mg/mL injection solution] Route: IV; Rate: dsf 40 mg/hr; Infused Over: 15 mins; Site: left antecubital; 20:54 Follow up: Response: Nausea is decreased; IV Status: Completed infusion kc3 19:12 Drug: morphine 2 mg [morphine 2 mg/mL intravenous cartridge (1 mL)] Route: IVP; Site: dsf left antecubital; 20:54 Follow up: Pain 9/10 Adult; Response: Pain is unchanged, physician notified kc3 19:48 Drug: diphenhydrAMINE 50 mg [diphenhydramine 50 mg/mL injection solution (1 mL)] Route: mgs IVP; Site: left antecubital; 20:53 Follow up: Response: No Adverse Reaction kc3 19:48 Drug: Solu-MEDROL 125 mg [Solu-Medrol 500 mg intravenous solution (125 mg)] Route: IVP; mgs Site: right antecubital; 20:54 Follow up: Response: No Adverse Reaction kc3 20:00 Drug: Diatrizoate Meglumine & Sodium 10 ml [diatrizoate meglumine and diat.sodium 66 dsf %-10 % oral solution (10 mL)] Route: PO; 20:42 Drug: Diatrizoate Meglumine & Sodium 10 ml [diatrizoate meglumine and diat.sodium 66 kc3 %-10 % oral solution (10 mL)] Route: PO; 20:50 Drug: morphine 2 mg [morphine 2 mg/mL intravenous cartridge (1 mL)] Route: IVP; Site: kc3 left antecubital; 21:41 Follow up: Response: Pain is decreased; see VS for followup kc3 22:08 Drug: Famotidine 20 mg [famotidine 10 mg/mL intravenous solution] Route: IVPB; Infused kc3 Over: 30 mins; Site: left antecubital; 03/27 00:25 Follow up: IV Status: Completed infusion; IV Intake: 50ml dsf 00:27 Drug: Nitrofurantoin 100 mg Route: PO; dsf Signatures: Dispatcher [employer] EDMS Iman Moreno, RN RN srm Kim Berg, Reg Reg gb Donovan Han, CHERYC [id number] Kaylee Garcia LPN [employer] ka4 Gildardo Torres RN RN mgs Clarisa Boles RN RN kc3 Maria T Christine, Reg Reg ks16 Cat Ortiz RN dsf The chart was reviewed and I authenticate all verbal orders and agree with the evaluation and treatment provided.Corrections: (The following items were deleted from the chart) 03/26 22:17 19:32 CT ABD & PELVIS WITH CONTRAST+CT ordered. EDMS EDMS Attachments: 20:50 [facility] Payment Agreement [email or web address] 03/27 10:57 T-Sheet-- Draft Copy gb Chart Complete MTDD
--- NOTE | 2016-03-29 01:34 | EDDOCDS ---
Nurse's Notes [facility] Name: Efrain Carreon Age: 40 yrs Sex: Female : 1975 Arrival Date: 03/26/2016 Time: 17:26 Bed I2 / M2 Private MD: NO PRIMARY PHYSICIAN, . Diagnosis: Hemorrhage of anus and rectum;Urinary tract infection, site not specified Presentation: 03/26 17:31 Presenting complaint: Patient states: Vaginal bleeding all of a sudden tonight. became srm nausea after seeing blood. had hysterectomy 3 yrs ago. had gastric bypass 1.5 yr ago and has hx of constipation since. lower abd pain for a long time. Risk factors: The patient reports no loss of conciousness prior to arrival. The patient has had a hysterectomy less than five years ago. This patient has not begun menopause. Adult Sepsis Screening: The patient does not have new or worsening altered mentation. Patient's respiratory rate is less than 22. Systolic blood pressure is greater than 100. Patient has a qSOFA score of 0- Negative Sepsis Screen. Suicide/Homicide risk assessment- the patient denies having any suicidal and/or homicidal ideations and does not present with any other emotional, behavioral or mental health complaints. Status: Patient is not a chief service observer or dependent. Transition of care: patient was not received from another setting of care. 17:31 Acuity: LISS Level [facility] 17:31 Method Of Arrival: Walkin/Carried/Asstd srm Triage Assessment: 17:34 General: Appears in no apparent distress, Behavior is appropriate for age, cooperative. srm Pain: Pain currently is 9 out of 10 on a pain scale. : Reports vaginal bleeding that is heavy flow. 17:34 HIV screening NA for this visit Offered previously. GI: other dry heaves. 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 none - PMHx: Asthma; Constipation, Chronic; - PSHx: Gastric Bypass (2014); Cholecystectomy; [partial hysterectomy; Appendectomy; Adenoidectomy; Tonsillectomy; - Social history: Smoking status: Patient states was never smoker of tobacco. No barriers to communication noted, The patient speaks fluent [place], Speaks appropriately for age. - Family history: Not pertinent. - : The pt / caregiver states he / she is not on anticoagulants. Home medication list is obtained from the patient. - Exposure Risk Screening:: None identified. Screenin:55 Screening information is obtained from the patient. Fall risk: No risks identified. kc3 Assistance ADL's: requires no assistance with activities of daily living. Abuse/DV Screen: The patient / caregiver reports he/she is: not in a situation that causes fear, pain or injury. Nutritional screening: No deficits noted. home support is adequate. 22:56 Advance Directives: Currently, there is no health care proxy. dsf Assessment: 20:52 General: Appears in no apparent distress, comfortable, Behavior is appropriate for age, kc3 cooperative. Pain: Location: abdomen Pain currently is 9 out of 10 on a pain scale. Neurological: Level of Consciousness is awake, alert, obeys commands, Oriented to person, place, time. Respiratory: Respiratory effort is even, unlabored. GI: Reports lower abdominal pain, nausea. Derm: Skin is pink, warm & dry. Musculoskeletal: Circulation, motion, and sensation intact. 21:40 General: Appears in no apparent distress, comfortable, Behavior is appropriate for age, kc3 cooperative, Pt reports pain has decreased.. Neurological: Level of Consciousness is awake, alert, obeys commands, Oriented to person, place, time. Respiratory: Respiratory effort is even, unlabored. GI: Reports nausea. Derm: Skin is pink, warm & dry. Musculoskeletal: Circulation, motion, and sensation intact. 22:34 General: rr even and unlabored, skin w/d/i. a&ox3, offers no complaints.. af2 22:44 General: Appears in no apparent distress, comfortable, Behavior is appropriate for age, dsf cooperative. Pain: Pain currently is 6 out of 10 on a pain scale. Neurological: Level of Consciousness is awake, alert. Cardiovascular: Capillary refill < 3 seconds. Respiratory: Airway is patent Respiratory effort is even, unlabored, Respiratory pattern is regular, symmetrical. GI: Denies nausea. Derm: Skin is pink, warm & dry. 22:56 General: pt just returned from [place] . dsf 03/27 00:32 General: Appears in no apparent distress, comfortable, Behavior is appropriate for age, ka4 cooperative, pleasant. Respiratory: Airway is patent Respiratory effort is even, unlabored, Respiratory pattern is regular, symmetrical. Derm: Skin is pink, warm & dry. Vital Signs: 03/26 17:28 BP 116 / 64; Pulse 95; Resp 18 S; Temp 96.9(T); Pulse Ox 100% on R/A; Weight 57.15 kg gr2 (R); Height 5 ft. 3 in. (160.02 cm) (R); Pain 9/10; 20:54 BP 125 / 67; Pulse 77; Resp 18; Pulse Ox 100% on R/A; Pain 9/10; kc3 20:54 Pain 9/10; kc3 21:41 BP 114 / 61; Pulse 75; Resp 18; Pulse Ox 97% on R/A; Pain 6/10; kc3 03/27 00:31 BP 116 / 56 RA Sitting (auto/reg); Pulse 68 MON; Resp 18 S; Temp 99.5(TE); Pulse Ox 96% ka4 on R/A; Pain 5/10; 03/26 17:28 Body Mass Index 22.32 (57.15 kg, 160.02 cm) gr2 Vitals: 03/26 17:28 Log In Time: March 26, 2016 at 17:28. RN notified that patient meets Red Flag gr2 criteria. ED Course: 17:27 Patient visited by Yamil Vanegas. gr2 17:27 Patient moved to Waiting gr2 17:28 NO PRIMARY PHYSICIAN, . is Private Physician. gr2 17:29 Patient visited by Yamil Vanegas. gr2 17:30 Patient moved to Pre RCE gr2 17:33 Triage Initiated srm 17:41 Patient moved to Triage 2 srm 18:42 Donovan Han RPA-C is PHCP. ck7 18:42 Jeffrey Hannah MD is Attending Physician. ck7 18:42 Patient visited by Donovan Han RPA-C. ck7 18:49 Patient moved to I2 / M2 mdr 18:53 Pt greeted and oriented to ED. Patient advised of names of staff involved in care, ajs location of call cleaning, wait times and NPO status. Accompanied by Family Member, Patient has correct armband on for positive identification. Placed in gown. Bed in low position. Call light in reach. Side rails up X 1. 18:54 Patient visited by Xenia Israel. ajs 19:05 Inserted saline lock: 20 gauge in left antecubital area The patient tolerated the kcs procedure well. 19:12 Pt & Aptt Sent. dsf 19:12 Amylase Sent. dsf 19:12 Basic Metabolic Profile Sent. dsf 19:12 CBC with Diff Sent. dsf 19:12 Lipase Sent. dsf 19:12 Liver Profile Sent. dsf 19:30 Patient visited by Donovan Han RPA-C. ck7 20:06 Patient visited by Donovan Han RPA-C. ck7 20:44 Patient visited by Donovan Han RPA-C. ck7 20:50 FORMERLY [facility], [facility]1983 Payment Agreement was scanned into Revl and attached to record. ks16 20:55 Patient name changed from Efrain\S\\S\Lajuett\S\ to Efrain\S\ \S\Lajuett. EDMS 20:55 The patient / caregiver is instructed regarding the plan of care and ED course. kc3 21:38 Patient visited by Donovan Han RPA-C. ck7 21:41 Patient visited by Clarisa Boles,FEDERICA. kc3 22:34 Patient visited by Milagros Jones,FEDERICA. af2 22:36 Patient visited by Milagros Jones,FEDERICA. af2 22:45 Patient visited by Cat Ortiz,FEDERICA. dsf 22:56 No procedures done that require assistance. dsf 23:25 Patient visited by Donovan Han RPA-C. ck7 23:44 Patient visited by Xenia Israel. ajs 03/27 00:15 CT ABD & PELVIS W/O CONTRAST Returned. EDMS 00:18 Patient visited by Donovan Han RPA-C. ck7 00:23 Jose Rogers MD is Referral Physician. ck7 00:24 [facility] is Referral Physician. ck7 00:33 Discontinued IV lock intact, bleeding controlled, pressure dressing applied, No ka4 redness/swelling at site. 10:57 T-Sheet-- Draft Copy was scanned into Revl and attached to record. gb Administered Medications: 03/26 19:12 Drug: NS 0.9% 1000 ml [sodium chloride 0.9 % injection solution] Route: IV; Rate: dsf bolus; Site: left antecubital; 20:54 Follow up: IV Status: Completed infusion kc3 19:12 Drug: Metoclopramide 10 mg [metoclopramide 5 mg/mL injection solution] Route: IV; Rate: dsf 40 mg/hr; Infused Over: 15 mins; Site: left antecubital; 20:54 Follow up: Response: Nausea is decreased; IV Status: Completed infusion kc3 19:12 Drug: morphine 2 mg [morphine 2 mg/mL intravenous cartridge (1 mL)] Route: IVP; Site: dsf left antecubital; 20:54 Follow up: Pain 11/17 Adult; Response: Pain is unchanged, physician notified kc3 19:48 Drug: diphenhydrAMINE 50 mg [diphenhydramine 50 mg/mL injection solution (1 mL)] Route: mgs IVP; Site: left antecubital; 20:53 Follow up: Response: No Adverse Reaction kc3 19:48 Drug: Solu-MEDROL 125 mg [Solu-Medrol 500 mg intravenous solution (125 mg)] Route: IVP; mgs Site: right antecubital; 20:54 Follow up: Response: No Adverse Reaction kc3 20:00 Drug: Diatrizoate Meglumine & Sodium 10 ml [diatrizoate meglumine and diat.sodium 66 dsf %-10 % oral solution (10 mL)] Route: PO; 20:42 Drug: Diatrizoate Meglumine & Sodium 10 ml [diatrizoate meglumine and diat.sodium 66 kc3 %-10 % oral solution (10 mL)] Route: PO; 20:50 Drug: morphine 2 mg [morphine 2 mg/mL intravenous cartridge (1 mL)] Route: IVP; Site: kc3 left antecubital; 21:41 Follow up: Response: Pain is decreased; see VS for followup kc3 22:08 Drug: Famotidine 20 mg [famotidine 10 mg/mL intravenous solution] Route: IVPB; Infused kc3 Over: 30 mins; Site: left antecubital; 03/27 00:25 Follow up: IV Status: Completed infusion; IV Intake: 50ml dsf 00:27 Drug: Nitrofurantoin 100 mg Route: PO; dsf Intake: 00:25 IV: 50.00ml; Total: 50.00ml. dsf Order Results: Lab Order: Amylase; SPEC'M 03/26/16 19:07 Test: AMYLASE; Value: 60; Range: 25-115; Units: U/L; Status: F Lab Order: Basic Metabolic Profile; SPEC'M 03/26/16 19:07 Test: GLUCOSE, FASTING; Value: 84; Range: 70-105; Units: MG/DL; Status: F Test: BLOOD UREA NITROGEN; Value: 18; Range: 7-18; Units: MG/DL; Status: F Test: CREATININE FOR GFR; Value: 0.66; Range: 0.55-1.02; Units: MG/DL; Status: F Test: GLOMERULAR FILTRATION RATE; Value: > 60.0; Range: >60; Status: F Test: SODIUM LEVEL; Value: 141; Range: 136-145; Units: MEQ/L; Status: F Test: POTASSIUM SERUM; Value: 3.6; Range: 3.5-5.1; Units: MEQ/L; Status: F Test: CHLORIDE LEVEL; Value: 104; Range: 98-107; Units: MEQ/L; Status: F Test: CARBON DIOXIDE LEVEL; Value: 29; Range: 21-32; Units: MEQ/L; Status: F Test: ANION GAP; Value: 8; Range: 8-16; Units: MEQ/L; Status: F Test: CALCIUM LEVEL; Value: 8.9; Range: 8.5-10.1; Units: MG/DL; Status: F Test Note: ; Units are mL/min/1.73 m2 Chronic Kidney Disease Staging per NKF: Stage I & II GFR >=60 Normal to Mildly Decreased Stage III GFR 30-59 Moderately Decreased Stage IV GFR 15-29 Severely Decreased Stage V GFR <15 Very Little GFR Left ESRD GFR <15 on LINSEED OIL REFINER Lab Order: CBC with Diff; SPEC'M 03/26/16 19:07 Test: WHITE BLOOD COUNT; Value: 5.9; Range: 4.0-10.0; Units: K/mm3; Status: F Test: RED BLOOD COUNT; Value: 4.91; Range: 4.00-5.40; Units: M/mm3; Status: F Test: HEMOGLOBIN; Value: 14.3; Range: 12.0-16.0; Units: g/dl; Status: F Test: HEMATOCRIT; Value: 41.9; Range: 36.0-47.0; Units: %; Status: F Test: MEAN CORPUSCULAR VOLUME; Value: 85.3; Range: 80.0-96.0; Units: fl; Status: F Test: MEAN CORPUSCULAR HEMOGLOBIN; Value: 29.2; Range: 27.0-33.0; Units: pg; Status: F Test: MEAN CORPUSCULAR HGB CONC; Value: 34.2; Range: 32.0-36.5; Units: g/dl; Status: F Test: RED CELL DISTRIBUTION WIDTH; Value: 12.0; Range: 11.5-14.5; Units: %; Status: F Test: PLATELET COUNT, AUTOMATED; Value: 187; Range: 150-450; Units: k/mm3; Status: F Test: NEUTROPHILS %; Value: 53.8; Range: 36.0-66.0; Units: %; Status: F Test: LYMPH %; Value: 36.4; Range: 24.0-44.0; Units: %; Status: F Test: MONO %; Value: 5.2; Range: 0.0-5.0; Abnormal: Above high normal; Units: %; Status: F Test: EOS %; Value: 2.6; Range: 0.0-3.0; Units: %; Status: F Test: BASO %; Value: 0.4; Range: 0.0-1.0; Units: %; Status: F Test: LARGE UNSTAINED CELL %; Value: 1.6; Range: 0.0-4.0; Units: %; Status: F Test: NEUTROPHILS #; Value: 3.2; Range: 1.8-7.7; Units: K/mm3; Status: F Test: LYMPH #; Value: 2.2; Range: 1.5-4.5; Units: K/mm3; Status: F Test: MONO #; Value: 0.3; Range: 0.0-0.8; Units: K/mm3; Status: F Test: EOS #; Value: 0.2; Range: 0.0-0.50; Units: K/mm3; Status: F Test: BASO #; Value: 0.0; Range: 0.0-0.2; Units: K/mm3; Status: F Test: LARGE UNSTAINED CELL #; Value: 0.1; Range: 0.0-0.4; Units: K/mm3; Status: F Lab Order: Lipase; SPEC'M 03/26/16 19:07 Test: LIPASE; Value: 224; Range: 73-393; Units: U/L; Status: F Lab Order: Liver Profile; SPEC'M 03/26/16 19:07 Test: AST/SGOT; Value: 15; Range: 15-37; Units: U/L; Status: F Test: ALT/SGPT; Value: 37; Range: 12-78; Units: U/L; Status: F Test: ALKALINE PHOSPHATASE; Value: 71; Range: 45-117; Units: U/L; Status: F Test: BILIRUBIN,TOTAL; Value: 0.3; Range: 0.2-1.0; Units: MG/DL; Status: F Test: BILIRUBIN,DIRECT; Value: < 0.1; Range: 0.0-0.2; Units: MG/DL; Status: F Test: TOTAL PROTEIN; Value: 8.0; Range: 6.4-8.2; Units: GM/DL; Status: F Test: ALBUMIN; Value: 4.3; Range: 3.2-5.2; Units: GM/DL; Status: F Test: ALBUMIN/GLOBULIN RATIO; Value: 1.16; Range: 1.00-1.93; Status: F Lab Order: Urinalysis; SPEC'M 03/26/16 19:08 Test: APPEARANCE, URINE; Value: CLEAR; Range: CLEAR; Status: F Test: COLOR, URINE; Value: YELLOW; Range: YELLOW; Status: F Test: PH,URINE; Value: 5.0; Range: 5.0-9.0; Units: UNITS; Status: F Test: SPECIFIC GRAVITY URINE AUTO; Value: 1.030; Range: 1.002-1.035; Status: F Test: PROTEIN, URINE AUTO; Value: NEGATIVE; Range: NEGATIVE; Units: mg/dL; Status: F Test: GLUCOSE, URINE (UA) AUTO; Value: NEGATIVE; Range: NEGATIVE; Units: mg/dL; Status: F Test: KETONE, URINE AUTO; Value: TRACE; Range: NEGATIVE; Abnormal: Above high normal; Units: mg/dL; Status: F Test: UROBILINOGEN, URINE AUTO; Value: 0.2; Range: 0.0-2.0; Units: mg/dL; Status: F Test: BILIRUBIN, URINE AUTO; Value: NEGATIVE; Range: NEGATIVE; Status: F Test: NITRITE, URINE AUTO; Value: POSITIVE; Range: NEGATIVE; Status: F Test: LEUKOCYTE ESTERASE, URINE AUTO; Value: 2+; Range: NEGATIVE; Abnormal: Above high normal; Status: F Test: BLOOD, URINE BLOOD; Value: 1+; Range: NEGATIVE; Abnormal: Above high normal; Status: F Test: WBC, URINE AUTO; Value: 26; Range: 0-3; Abnormal: Above high normal; Units: /HPF; Status: F Test: RBC, URINE AUTO; Value: 2; Range: 0-3; Units: /HPF; Status: F Test: BACTERIA, URINE AUTO; Value: 3+; Range: NEGATIVE; Abnormal: Above high normal; Status: F Test: SQUAMOUS EPITHELIAL CELL UR AU; Value: 1; Range: 0-6; Units: /HPF; Status: F Test: MUCUS, URINE; Value: SMALL; Range: NEGATIVE; Status: F Test: HYALINE CAST, URINE AUTO; Value: 0; Range: 0-1; Units: /LPF; Status: F Lab Order: Urine Culture; SPEC'M 03/26/16 19:08 Test: URINE CULTURE; Value: ORGANISM 1: ESCHERICHIA COLI; Status: F Test: URINE CULTURE; Value: ESCHERICHIA COLI; Status: F Test: URINE CULTURE; Value: COLONY COUNT CFU/ml 100,000; Status: F Test: URINE CULTURE; Value: GRAM NEG SENSI - VITEK 80; Status: F Test: URINE CULTURE; Value: Method: VIT2; Status: F Test: URINE CULTURE; Value: EXTD BRD SPCTRM BETA LACTAMASE -; Status: F Test: URINE CULTURE; Value: TRIMETHOPRIM/SULFAMETHOXAZOLE >=320 R; Status: F Test: URINE CULTURE; Value: AMPICILLIN >=32 R; Status: F Test: URINE CULTURE; Value: GENTAMICIN <=1 S; Status: F Test: URINE CULTURE; Value: NITROFURANTOIN <=16 S; Status: F Test: URINE CULTURE; Value: CEFAZOLIN <=4 S; Status: F Test: URINE CULTURE; Value: LEVOFLOXACIN >=8 R; Status: F Test: URINE CULTURE; Value: TOBRAMYCIN <=1 S; Status: F Test: URINE CULTURE; Value: CEFTRIAXONE <=1 S; Status: F Test: URINE CULTURE; Value: CEFTAZIDIME <=1 S; Status: F Test: URINE CULTURE; Value: AMPICILLIN/SULBACTAM >=32 R; Status: F Test: URINE CULTURE; Value: PIPERACILLIN/TAZOBACTAM <=4 S; Status: F Test: URINE CULTURE; Value: AZTREONAM <=1 S; Status: F Test: URINE CULTURE; Value: ERTAPENEM <=0.5 S; Status: F Test: URINE CULTURE; Value: MEROPENEM <=0.25 S; Status: F Test: URINE CULTURE; Value: TIGECYCLINE <=0.5 S; Status: F Test: URINE CULTURE; Value: CEFEPIME <=1 S; Status: F Lab Order: Pt & Aptt; SPEC'M 03/26/16 19:07 Test: PROTHROMBIN TIME; Value: 13.5; Range: 12.3-14.5; Units: SECONDS; Status: F Test: INR; Value: 1.02; Status: F Test: PARTIAL THROMBOPLASTIN TIME; Value: 29.5; Range: 26.6-37.1; Units: SECONDS; Status: F Test Note: ; THERAPUTIC HUMAN INR VALUES INDICATIONS NORMAL RANGES PROPHYLAXIS/TREATMENT OF: VENOUS THROMBOSIS 2.0-3.0 PULMONARY EMBOLISM 2.0-3.0 PREVENTION OF SYSTEMIC EMBOLISM FROM: TISSUE HEART VALVES 2.0-3.0 ACUTE MYOCARDIAL INFARCTION 2.0-3.0 VALVULAR HEART DISEASE 2.0-3.0 ATRIAL FIBRILLATION 2.0-3.0 MECHANICAL VALVES(HIGH RISK) 2.5-3.5 RECURRENT MYOCARDIAL INFARCTION 2.5-3.5 Radiology Order: CT ABD & PELVIS W/O CONTRAST Test: CT ABD & PELVIS W/O CONTRAST REASON FOR EXAMINATION: ABD PAIN, RECTAL BLEEDING R/O MASS/IBD; ; CT of the abdomen and pelvis without contrast; Clinical statement: Pain.; Technique: Multiple axial CT images were obtained from the base of the lungs to the floor of the pelv; is utilizing 5 mm axial slices after administration of oral contrast. Coronal and sagittal reconstruc; tions were also obtained.; No comparison is available.; Findings:; Chest: The visualized lung bases are clear.; Abdomen: The kidneys are normal in size bilaterally. There is no evidence of hydronephrosis or nephro; lithiasis. The liver, spleen, pancreas, and adrenal glands are unremarkable. The aorta demonstrates n; ormal caliber and contour. There is no abdominal lymphadenopathy or ascites.; Pelvis: The bowel is unremarkable, with no obstructive or inflammatory changes. The urinary bladder i; s within normal limits. There is no pelvic lymphadenopathy or ascites. The other pelvic structures ap; pear unremarkable.; Bones: There are no suspicious osseous abnormalities seen.; Impression: Unremarkable CT examination of the abdomen and pelvis.; ; Outcome: 03/26 22:53 CT Study completed. kc3 03/27 00:25 Discharge ordered by Provider. ck7 00:32 Discharge Assessment: Patient awake, alert and oriented x 3. No cognitive and/or ka4 functional deficits noted. Patient verbalized understanding of disposition instructions. The following High Risk Discharge criteria are identified: None. Discharged to home ambulatory, with significant other. Condition: good Condition: stable. Discharge instructions given to patient, Instructed on discharge instructions, follow up and referral plans. medication usage, Demonstrated understanding of instructions, medications, Pt was receptive of discharge instructions/ teaching. Prescriptions given X 1. Property :Personal belongings accompany Pt. 00:33 Discharge Assessment: patient administered narcotics - yes. Pt provided with safe ka4 discharge. 00:34 Patient left the ED. ka4 Signatures: Dispatcher [employer] EDTX Cristal Galvin RN RN Iman Hu RN [facility] Kim, Reg Reg gb Cat Ortiz RN RN dsf Slate, Amanda ajs Kwaczala, Christopher, RPA-C RPA-Cck7 Yamil Vanegas gr2 Kaylee Garcia,HUDSON OFFSET PRINTING OPERATOR ka4 Gildardo Torres,FEDERICA RN Milagros OkeefeRN RN af2 Eliseo Sandoval, JACK SPINNER JACK SPINNER Clarisa Johnson RN RN kc3 Maria T Christine, Reg Reg ks16 Chart Complete MTDD
[2016-04-11] MEDS ORDERED: No Home Meds (14:40)
== END 2016-03-27 00:34 | disposition home or self-care (01) ==
LOC: M ED 17:26
DX: K62.5 Hemorrhage of anus and rectum (principal); N39.0 Urinary tract infection, site not specified; J45.909 Unspecified asthma, uncomplicated; K59.09 Other constipation; Z98.84 Bariatric surgery status; Z80.0 Family history of malignant neoplasm of digestive organs; Z91.041 Radiographic dye allergy status; Z88.0 Allergy status to penicillin; Z88.8 Allergy status to other drugs, medicaments and biological substances
CPT/HCPCS: 74176; 80048; 80076; 81001; 82150; 83690; 85025; 85610; 85730; 87088; 87186; 96365; 96366; 96367; 96375; 99284; J1200; J2765; J2930; Q9963

== ENCOUNTER → 2016-04-02 | Outpatient (CLI) | payer OTHER ==
[2016-04-05 00:08] LABS: Chitobioside Carbohydrat (ACCA 43 units (0-90); Laminaribioside Carbohyd (ALCA 8 units (0-60); Mannobioside Carbohydrat (AMCA 14 units (0-100); Saccharomyces cerevisiae IgG A 53 units (0-50)
== END ==
LOC: M LAB 11:18
PROVIDERS: ATTEND Surgery
DX: R10.9 Unspecified abdominal pain (principal)

== ENCOUNTER → 2016-04-09 | Outpatient (CLI) | payer OTHER ==
[~2016-04-09] MED LIST: E-Z-GAS II EFFERVESCENT PACKET (SODIUM BICARB./CITRIC ACID/SIMETHICONE) As Ordered ONE; E-Z-HD 98% w/w 340GM SUSP BTL As Ordered ONE; E-Z-PAQUE 96% w/w SUSP 176GM BTL As Ordered ONE; No Home Meds
--- NOTE | 2016-04-09 19:35 | REP ---
UPPER GI AND SMALL BOWEL FOLLOW THROUGH: The procedure was performed under the direct supervision of Dr. Frost. The images were reviewed with Dr. Frost. The anglesmith helper film shows no organomegaly or pathological masses. The intestinal gas pattern is nonspecific. There are surgical clips noted in the right upper quadrant as well as in the epigastric region and left abdomen consistent with the patient's history of gastric bypass. There is a tubal ligation clamp seen in the right pelvis. Liquid barium was given in the erect in the prone oblique positions. The oral and pharyngeal stages of deglutition are unremarkable. Esophageal transport is prompt and efficient and there is no esophagitis, stricture, mucosal ring or hiatal hernia. There is gastroesophageal reflux demonstrated to above the level of the leesa. The contrast passes through the anastomosis without delay. There is no evidence of gastritis, neoplasm or ulcer disease. The visualized portion of the proximal small bowel appears normal in course and caliber. The barium column was followed through the small bowel. The transit time is quite rapid as contrast is seen in the right colon within 5 minutes of starting the exam. Gentle palpation shows all loops are freely movable and pliable. There are no fixed or angulated loops. The small bowel mucosal pattern is normal in course and caliber. There is no transition to suggest a partial small bowel obstruction. Spot filming of the terminal ileum shows it to be unremarkable. IMPRESSION: There is gastroesophageal reflux demonstrated to above the level of the leesa. Small bowel transit time is rapid as contrast is seen in the right colon within 5 minutes of starting the procedure. Otherwise, single contrast upper GI and small bowel follow through within normal limits. 2 minutes and 46 seconds of fluoroscopy time was utilized for this procedure. Reviewed by MAHNAZ Graham 04/10/2016 02:12 PEdited and Signed by Tyrone Frost MD 04/10/2016 02:25 P
== END ==
LOC: M RAD 08:26
PROVIDERS: ATTEND Surgery
DX: R10.9 Unspecified abdominal pain (principal); K90.0 Celiac disease

== ENCOUNTER → 2016-04-18 | Outpatient (CLI) | payer OTHER ==
[~2016-04-18] VITALS: Ht 160 cm; Wt 54.9 kg
[~2016-04-18] MED LIST changes: -E-Z-GAS II EFFERVESCENT PACKET (SODIUM BICARB./CITRIC ACID/SIMETHICONE) As Ordered ONE; -E-Z-HD 98% w/w 340GM SUSP BTL As Ordered ONE; -E-Z-PAQUE 96% w/w SUSP 176GM BTL As Ordered ONE; +LIDOCAINE 2% INJ 100 MG/5 ML SDV (FOR ANES.) As Ordered ONE; +PROPOFOL 200 MG/20 ML VIAL As Ordered ONE
--- NOTE | 2016-04-18 12:27 | ROOR ---
Patient Name: Efrain Carreon Procedure Date: 04/18/2016 12:13 PM Date of : 1975 Age: 40 Room: [facility] Gender: Female Note Status: Finalized Procedure: Upper GI endoscopy Indications: Suspected esophageal reflux Providers: Jose Rogers Jr, MD Referring MD: Toñito Ríos M.D. Requesting Provider: Medicines: Propofol per Anesthesia Complications: No immediate complications. Procedure: Pre-Anesthesia Assessment: - Prior to the procedure, a History and Physical was performed, and patient medications and allergies were reviewed. The patient is competent. The risks and benefits of the procedure and the sedation options and risks were discussed with the patient. All questions were answered and informed consent was obtained. Patient identification and proposed procedure were verified by the physician and the nurse in the pre-procedure area and in the procedure room. Mental Status Examination: alert and oriented. Airway Examination: normal oropharyngeal airway and neck mobility. Respiratory Examination: clear to auscultation. CV Examination: normal. ASA Grade Assessment: II - A patient with mild systemic disease. After reviewing the risks and benefits, the patient was deemed in satisfactory condition to undergo the procedure. The anesthesia plan was to use moderate sedation / analgesia (conscious sedation). Immediately prior to administration of medications, the patient was re-assessed for adequacy to receive sedatives. The heart rate, respiratory rate, oxygen saturations, blood pressure, adequacy of pulmonary ventilation, and response to care were monitored throughout the procedure. The physical status of the patient was re-assessed after the procedure. The Endoscope was introduced through the mouth, and advanced to the jejunum. The upper GI endoscopy was accomplished without difficulty. The patient tolerated the procedure well. Findings: The upper third of the esophagus, middle third of the esophagus and lower third of the esophagus were normal. Evidence of a gastric bypass was found. A gastric pouch with a normal size was found. The staple line appeared intact. The gastrojejunal anastomosis was characterized by healthy appearing mucosa. This was traversed. The xywea-wh-xtweoxp limb was characterized by healthy appearing mucosa. The examined jejunum was normal. Impression: - Normal upper third of esophagus, middle third of esophagus and lower third of esophagus. - Gastric bypass with a normal-sized pouch and intact staple line. Gastrojejunal anastomosis characterized by healthy appearing mucosa. - Normal examined jejunum. - No specimens collected. Recommendation: - Discharge patient to home (ambulatory). - Return to my office in 2 weeks. Jose Rogers MD Jose Rogers Jr, MD 04/18/2016 12:26:49 PM This report has been signed electronically. Number of Addenda: 0 Note Initiated On: 04/18/2016 12:13 PM Estimated Blood Loss: Estimated blood loss: none.
--- NOTE | 2016-04-18 12:46 | ROOR ---
Patient Name: Efrain Carreon Procedure Date: 04/18/2016 12:16 PM Date of : 1975 Age: 40 Room: [facility] Gender: Female Note Status: Finalized Procedure: Colonoscopy Indications: Chronic diarrhea, Hematochezia Providers: Jose Rogers Jr, MD Referring MD: Toñito Ríos M.D. Requesting Provider: Medicines: Propofol per Anesthesia Complications: No immediate complications. Procedure: Pre-Anesthesia Assessment: - Prior to the procedure, a History and Physical was performed, and patient medications and allergies were reviewed. The patient is competent. The risks and benefits of the procedure and the sedation options and risks were discussed with the patient. All questions were answered and informed consent was obtained. Patient identification and proposed procedure were verified by the physician and the nurse in the pre-procedure area and in the procedure room. Mental Status Examination: alert and oriented. Airway Examination: normal oropharyngeal airway and neck mobility. Respiratory Examination: clear to auscultation. CV Examination: normal. ASA Grade Assessment: II - A patient with mild systemic disease. After reviewing the risks and benefits, the patient was deemed in satisfactory condition to undergo the procedure. The anesthesia plan was to use moderate sedation / analgesia (conscious sedation). Immediately prior to administration of medications, the patient was re-assessed for adequacy to receive sedatives. The heart rate, respiratory rate, oxygen saturations, blood pressure, adequacy of pulmonary ventilation, and response to care were monitored throughout the procedure. The physical status of the patient was re-assessed after the procedure. The Colonoscope was introduced through the anus and advanced to the cecum, identified by appendiceal orifice and ileocecal valve. The colonoscopy was performed without difficulty. The patient tolerated the procedure well. The quality of the bowel preparation was adequate and excellent. Findings: The perianal and digital rectal examinations were normal. Pertinent negatives include normal sphincter tone, no palpable rectal lesions and no anal lesion or abnormality was detected. The rectum, recto-sigmoid colon, sigmoid colon, descending colon, transverse colon, ascending colon, cecum, appendiceal orifice and ileocecal valve appeared normal. Biopsies for histology were taken with a cold forceps from the ascending colon, transverse colon, descending colon and rectum for evaluation of microscopic colitis. Impression: - The rectum, recto-sigmoid colon, sigmoid colon, descending colon, transverse colon, ascending colon, cecum, appendiceal orifice and ileocecal valve are normal. Biopsied. Recommendation: - Discharge patient to home (ambulatory). - Return to my office in 2 weeks. Jose Rogers MD Jose Rogers Jr, MD 04/18/2016 12:46:11 PM This report has been signed electronically. Number of Addenda: 0 Note Initiated On: 04/18/2016 12:16 PM Estimated Blood Loss: Estimated blood loss: none.
[2016-04-18 13:05] VITALS: BP 115/62
== END | disposition home or self-care (01) ==
LOC: M OPP 10:58
PROVIDERS: ATTEND Surgery
DX: R19.7 Diarrhea, unspecified (principal); K92.1 Melena; Z80.0 Family history of malignant neoplasm of digestive organs; Z98.0 Intestinal bypass and anastomosis status; Z91.041 Radiographic dye allergy status; Z88.0 Allergy status to penicillin; Z88.8 Allergy status to other drugs, medicaments and biological substances

== ENCOUNTER → 2016-04-22 | Outpatient (REF) | payer OTHER ==
[~2016-04-22] MED LIST changes: -LIDOCAINE 2% INJ 100 MG/5 ML SDV (FOR ANES.) As Ordered ONE; -PROPOFOL 200 MG/20 ML VIAL As Ordered ONE
[2016-04-22 14:23] LABS: ANION GAP 11 MEQ/L (8-16); BLOOD UREA NITROGEN 9 MG/DL (7-18); CALCIUM LEVEL 8.4 MG/DL (8.5-10.1); CARBON DIOXIDE LEVEL 25 MEQ/L (21-32); CHLORIDE LEVEL 106 MEQ/L (98-107); CHOLESTEROL LEVEL 146 MG/DL (<200); CREATININE FOR GFR 0.63 MG/DL (0.55-1.02); GLOMERULAR FILTRATION RATE > 60.0 (>60); GLUCOSE, FASTING 76 MG/DL (70-105); POTASSIUM SERUM 3.8 MEQ/L (3.5-5.1); SODIUM LEVEL 142 MEQ/L (136-145); TRIGLYCERIDES LEVEL 101 MG/DL (<150)
[2016-04-22 14:24] LABS: VITAMIN B12 LEVEL 331 PG/ML
[2016-04-22 14:25] LABS: FOLATE 5.8 NG/ML
== END ==
LOC: M SFHCPLAZ 10:15
PROVIDERS: ATTEND Family Medicine
DX: Z98.890 Other specified postprocedural states (principal); Z83.3 Family history of diabetes mellitus; Z82.49 Family history of ischemic heart disease and other diseases of the circulatory system

== ENCOUNTER → 2016-06-03 | Outpatient (REF) | payer OTHER | LOC: M SFHCPLAZ 09:14 | PROVIDERS: ATTEND Family Medicine | DX: E53.8 Deficiency of other specified B group vitamins (principal) ==

== ENCOUNTER → 2016-06-05 | Outpatient (REF) | payer OTHER | LOC: M LAB REF 12:16 | PROVIDERS: ATTEND Physician Assistant Medical | DX: R50.9 Fever, unspecified (principal) ==

== ENCOUNTER → 2016-10-07 | Outpatient (REF) | payer OTHER ==
[~2016-10-07] MED LIST changes: +HYDR10SO PO; +HYDR1SOL PO; +VITA1DRO SL
[2016-10-07 17:14] LABS: BASO % 0.7 % (0.0-1.0); EOS # 0.1 K/mm3 (0.0-0.50); EOS % 2.3 % (0.0-3.0); LARGE UNSTAINED CELL # 0.1 K/mm3 (0.0-0.4); LARGE UNSTAINED CELL % 2.3 % (0.0-4.0); LYMPH # 1.8 K/mm3 (1.5-4.5); LYMPH % 42.5 % (24.0-44.0); MEAN CORPUSCULAR HEMOGLOBIN 29.2 pg (27.0-33.0); MEAN CORPUSCULAR HGB CONC 33.4 g/dl (32.0-36.5); MEAN CORPUSCULAR VOLUME 87.4 fl (80.0-96.0); MONO # 0.3 K/mm3 (0.0-0.8); NEUTROPHILS % 46.3 % (36.0-66.0); PLATELET COUNT, AUTOMATED 191 k/mm3 (150-450); WHITE BLOOD COUNT 4.3 K/mm3 (4.0-10.0)
[2016-10-07 17:46] LABS: ANION GAP 7 MEQ/L (8-16); BLOOD UREA NITROGEN 9 MG/DL (7-18); CALCIUM LEVEL 8.8 MG/DL (8.5-10.1); CARBON DIOXIDE LEVEL 28 MEQ/L (21-32); CHLORIDE LEVEL 103 MEQ/L (98-107); CREATININE FOR GFR 0.64 MG/DL (0.55-1.02); GLOMERULAR FILTRATION RATE > 60.0 (>60); GLUCOSE, FASTING 127 MG/DL (70-105); POTASSIUM SERUM 4.4 MEQ/L (3.5-5.1); SODIUM LEVEL 138 MEQ/L (136-145)
== END ==
LOC: M SFHCLERA 10:07
PROVIDERS: ATTEND Family Medicine
DX: K91.1 Postgastric surgery syndromes (principal); Z98.84 Bariatric surgery status; E55.9 Vitamin D deficiency, unspecified; K92.1 Melena

== ENCOUNTER → 2016-10-24 | Outpatient (REF) | payer OTHER | LOC: M SFHCLERA 17:55 | PROVIDERS: ATTEND Family Medicine | DX: K92.1 Melena (principal); Z53.9 Procedure and treatment not carried out, unspecified reason ==

== ENCOUNTER → 2016-10-28 | Outpatient (CLI) | payer OTHER ==
--- NOTE | 2016-10-28 12:23 | REPMRS ---
Patient History The patient states she has not had a clinical breast exam in over a year. Family history of colorectal cancer in father at age 40, breast cancer in mother at age 40, and breast cancer in 2 maternal aunts at age 40. Digital Mammo Screening Bilat: October 28, 2016 - Exam #: [id number] Bilateral CC and MLO view(s) were taken. Technologist: Vero Sol, Technologist FINDINGS: The breast tissue is heterogeneously dense. This may lower the sensitivity of mammography. There is no evidence of cancer on this mammogram. ASSESSMENT: BI-RADS/ACR category 2 mammogram. Benign finding(s). Recommendation Routine screening mammogram of both breasts in 1 year (for women over age 40). This mammogram was interpreted with the aid of an FDA-approved computer-aided dectection system. Electronically Signed By: Ho Burgos MD 10/28/16 2050
== END ==
LOC: M RAD 09:38
PROVIDERS: ATTEND Family Medicine
DX: Z12.31 Encounter for screening mammogram for malignant neoplasm of breast (principal); Z80.3 Family history of malignant neoplasm of breast

== ENCOUNTER → 2016-11-01 | Outpatient (CLI) | payer OTHER ==
--- NOTE | 2016-11-01 10:54 | REP ---
MRI RIGHT KNEE: TECHNIQUE: Axial proton density fat saturation, sagittal proton density T2 STIR, water excitation, coronal proton density, proton density fat saturation. There is no evidence of a meniscal tear. The cruciate and collateral ligaments are intact. The extensor mechanism is intact. There is mild chondromalacia along the medial patellar facet. No osteochondral defects are seen. Bone marrow signal is homogenous and unremarkable. There is no bone marrow edema or occult fracture. There is a small joint effusion. No popliteal cyst is seen. There appears to be thickening of the synovium in the suprapatellar region with hyperintense signal. This suggest synovitis. IMPRESSION: No meniscal tear. Cruciate and collateral ligaments intact. Mild chondromalacia patella medially. Small joint effusion. There is hyperintense synovium with thickening in the suprapatellar bursa suggesting an element of synovitis. Signed by Ho Burgos MD 11/01/2016 09:22 A
== END ==
LOC: M RAD 07:21
PROVIDERS: ATTEND Family Medicine
DX: M25.561 Pain in right knee (principal); G89.29 Other chronic pain; M25.461 Effusion, right knee; M22.41 Chondromalacia patellae, right knee

== ENCOUNTER → 2016-11-18 | Outpatient (REF) | payer OTHER ==
[2016-11-18 21:07] LABS: ANION GAP 8 MEQ/L (8-16); BLOOD UREA NITROGEN 12 MG/DL (7-18); CALCIUM LEVEL 9.3 MG/DL (8.5-10.1); CARBON DIOXIDE LEVEL 28 MEQ/L (21-32); CHLORIDE LEVEL 107 MEQ/L (98-107); CREATININE FOR GFR 0.66 MG/DL (0.55-1.02); GLOMERULAR FILTRATION RATE > 60.0 (>60); GLUCOSE, FASTING 86 MG/DL (70-105); POTASSIUM SERUM 4.8 MEQ/L (3.5-5.1); SODIUM LEVEL 143 MEQ/L (136-145)
== END ==
LOC: M SFHCLERA 18:54
PROVIDERS: ATTEND Family Medicine
DX: M25.561 Pain in right knee (principal)

== ENCOUNTER 2016-12-01 12:40 | Emergency (ER) | payer OTHER ==
[~2016-12-01] VITALS: Ht 160 cm; Wt 57.7 kg
[~2016-12-01 12:40] MED LIST changes: -HYDR10SO PO; -HYDR1SOL PO; -VITA1DRO SL
[2016-12-01] MEDS ORDERED: VITA1DRO SL (12:58)
[2016-12-01] MEDS ORDERED: HYDROcodone/APAP LIQUID 7.5-325MG 15ML UDC (LORTAB ELIXIR) PO ONE (13:45)
--- NOTE | 2016-12-01 14:25 | REP ---
Right lower extremity Duplex Doppler venous ultrasound: Real time compression and duplex Doppler interrogation of the right lower extremity deep venous system is performed. The right common femoral, superficial femoral and popliteal veins are fully compressible with transducer pressure and demonstrate normal spontaneous and phasic flow, without evidence of deep venous thrombosis. Impression: No evidence of deep venous thrombosis of the right lower extremity femoral popliteal venous system. Signed by Ho Burgos MD 12/01/2016 02:16 P
[2016-12-01 14:26] LABS: ANION GAP 9 MEQ/L (8-16); BLOOD UREA NITROGEN 9 MG/DL (7-18); CALCIUM LEVEL 8.2 MG/DL (8.5-10.1); CARBON DIOXIDE LEVEL 25 MEQ/L (21-32); CHLORIDE LEVEL 109 MEQ/L (98-107); CREATININE FOR GFR 0.51 MG/DL (0.55-1.02); GLOMERULAR FILTRATION RATE > 60.0 (>60); GLUCOSE, FASTING 118 MG/DL (70-105); POTASSIUM SERUM 4.2 MEQ/L (3.5-5.1); SODIUM LEVEL 143 MEQ/L (136-145)
[2016-12-01] MEDS ORDERED: HYDR10SO PO (14:52)
[2016-12-01] MEDS ORDERED: HYDR1SOL PO (14:59)
[2016-12-01 15:11] VITALS: BP 113/56
== END 2016-12-01 15:13 | disposition home or self-care (01) ==
LOC: M ED 12:40
DX: M79.661 Pain in right lower leg (principal); Z98.890 Other specified postprocedural states

== ENCOUNTER → 2017-03-24 | Outpatient (REF) | payer OTHER ==
[2017-03-24 19:19] LABS: FERRITIN 20 NG/ML (8-252); IRON (FE) 118 UG/DL (50-170); PERCENT SATURATION 31.3 % (13.2-45.0); THYROID STIMULATING HORMONE 0.567 uIU/ML (0.358-3.740); TOTAL IRON BINDING CAPACITY 377 UG/DL (250-450)
[2017-03-24 21:24] LABS: FOLATE 11.4 NG/ML; TOTAL 25(OH) VITAMIN D 18.3 NG/ML (30.0-100.0); VITAMIN B12 LEVEL 549 PG/ML
[2017-03-24 21:34] LABS: RUBELLA IgG QUALITATIVE IMMUNE (IMMUNE)
[2017-03-26 08:07] LABS: MUMPS VIRUS IgG ANTIBODY 25.8 AU/mL (Immune >10.9)
[2017-03-26 08:07] LABS: RUBEOLA IgG ANTIBODY <25.0 AU/mL (Immune >29.9)
[2017-03-28 00:06] LABS: ZINC PLASMA 83 ug/dL (56-134)
== END ==
LOC: M SFHCLERA 10:15
DX: Z01.84 Encounter for antibody response examination (principal)

== ENCOUNTER → 2017-05-02 | Outpatient (CLI) | payer MEDICAID, OTHER ==
[~2017-05-02] MED LIST changes: +E-Z-GAS II EFFERVESCENT PACKET (SODIUM BICARB./CITRIC ACID/SIMETHICONE) As Ordered; +E-Z-HD 98% w/w 340GM SUSP BTL As Ordered; +E-Z-PAQUE 96% w/w SUSP 176GM BTL As Ordered; -No Home Meds
== END ==
LOC: M RAD 09:46
DX: R63.5 Abnormal weight gain (principal); Z98.84 Bariatric surgery status; Z85.22 Personal history of malignant neoplasm of nasal cavities, middle ear, and accessory sinuses; Z68.26 Body mass index [BMI] 26.0-26.9, adult
CPT/HCPCS: 74241

== ENCOUNTER → 2017-06-03 | Outpatient (REF) | payer OTHER ==
[2017-06-03 19:55] LABS: INFLUENZA A AMPLIFICATION NEGATIVE (NEGATIVE); INFLUENZA B AMPLIFICATION NEGATIVE (NEGATIVE)
== END ==
LOC: M LAB REF 19:03
DX: J11.1 Influenza due to unidentified influenza virus with other respiratory manifestations (principal)
CPT/HCPCS: 87502

== ENCOUNTER → 2017-07-15 | Outpatient (REF) | payer OTHER ==
[2017-07-15 11:47] LABS: HEMATOCRIT 40.6 % (36.0-47.0); HEMOGLOBIN 13.1 g/dl (12.0-15.5); MEAN CORPUSCULAR HEMOGLOBIN 27.8 pg (27.0-33.0); MEAN CORPUSCULAR HGB CONC 32.3 g/dl (32.0-36.5); MEAN CORPUSCULAR VOLUME 86.2 fl (80.0-96.0); PLATELET COUNT, AUTOMATED 194 10^3/uL (150-450); RED BLOOD COUNT 4.71 10^6/uL (4.00-5.40); RED CELL DISTRIBUTION WIDTH 11.9 % (11.5-14.5); WHITE BLOOD COUNT 4.9 10^3/uL (4.0-10.0)
[2017-07-15 12:26] LABS: ANION GAP 6 MEQ/L (8-16); BLOOD UREA NITROGEN 12 MG/DL (7-18); CALCIUM LEVEL 8.7 MG/DL (8.5-10.1); CARBON DIOXIDE LEVEL 29 MEQ/L (21-32); CHLORIDE LEVEL 104 MEQ/L (98-107); CHOLESTEROL LEVEL 170 MG/DL (<200); CHOLESTEROL RISK RATIO 2.098 (<5); CREATININE FOR GFR 0.49 MG/DL (0.55-1.30); GLOMERULAR FILTRATION RATE > 60.0 (>60); GLUCOSE, FASTING 114 MG/DL (70-100); HDL CHOLESTEROL 81 MG/DL (>40); LDL CHOLESTEROL 70.6 MG/DL (<100); NON-HDL-C 89 MG/DL; SODIUM LEVEL 139 MEQ/L (136-145); THYROID STIMULATING HORMONE 0.739 uIU/ML (0.358-3.740); TRIGLYCERIDES LEVEL 92 MG/DL (<150)
== END ==
LOC: M SFHCLERA 09:41
DX: R00.2 Palpitations (principal)

== ENCOUNTER → 2017-09-29 | Outpatient (CLI) | payer OTHER ==
[2017-09-29 14:39] LABS: URIC ACID 3.2 MG/DL (2.6-6.0)
== END ==
LOC: M WUC 12:38
DX: M25.531 Pain in right wrist (principal)
CPT/HCPCS: 84550

== ENCOUNTER 2018-09-12 12:56 | Emergency (ER) | payer OTHER ==
[~2018-09-12] VITALS: Ht 162.6 cm; Wt 74.5 kg
[2018-09-12 12:56] VITALS: BP 137/73
[~2018-09-12 12:56] MED LIST changes: +CYCL10TA PO; -E-Z-GAS II EFFERVESCENT PACKET (SODIUM BICARB./CITRIC ACID/SIMETHICONE) As Ordered; -E-Z-HD 98% w/w 340GM SUSP BTL As Ordered; -E-Z-PAQUE 96% w/w SUSP 176GM BTL As Ordered; +HYDR10SO PO; +HYDR1SOL PO; +No Home Meds; +VITA1DRO SL
[2018-09-12] MEDS ORDERED: KETOROLAC 60 MG/2 ML VIAL (J1885) IM ONE (13:45)
[2018-09-12] MEDS ORDERED: CYCL10TA PO (14:07)
== END 2018-09-12 14:15 | disposition home or self-care (01) ==
LOC: M ED 12:56
DX: S29.012A Strain of muscle and tendon of back wall of thorax, initial encounter (principal); X58.XXXA Exposure to other specified factors, initial encounter; Y92.89 Other specified places as the place of occurrence of the external cause; M19.90 Unspecified osteoarthritis, unspecified site; Z98.84 Bariatric surgery status; Z88.0 Allergy status to penicillin; Z88.8 Allergy status to other drugs, medicaments and biological substances; Z91.041 Radiographic dye allergy status
CPT/HCPCS: 96372; 99283; J1885

== ENCOUNTER → 2018-09-30 | Outpatient (REF) | payer OTHER | LOC: M SFHCLERA 15:08 | PROVIDERS: ATTEND Family Medicine | DX: Z98.890 Other specified postprocedural states (principal); K91.1 Postgastric surgery syndromes ==

== ENCOUNTER → 2018-12-17 | Outpatient (REF) | payer OTHER ==
[2018-12-17 17:13] LABS: BASO % 0.6 % (0.0-1.0); EOS # 0.1 10^3/uL (0.0-0.5); EOS % 1.9 % (0.0-3.0); HEMATOCRIT 41.3 % (36.0-47.0); HEMOGLOBIN 12.9 g/dl (12.0-15.5); LYMPH # 2.1 10^3/uL (1.5-5.0); LYMPH % 39.5 % (24.0-44.0); MEAN CORPUSCULAR HEMOGLOBIN 27.3 pg (27.0-33.0); MEAN CORPUSCULAR HGB CONC 31.2 g/dl (32.0-36.5); MEAN CORPUSCULAR VOLUME 87.3 fl (80.0-96.0); MONO # 0.4 10^3/uL (0.0-0.8); MONO % 8.3 % (0.0-5.0); NEUTROPHILS # 2.6 10^3/uL (1.5-8.5); NEUTROPHILS % 49.5 % (36.0-66.0); PLATELET COUNT, AUTOMATED 231 10^3/uL (150-450); RED BLOOD COUNT 4.73 10^6/uL (4.00-5.40); WHITE BLOOD COUNT 5.3 10^3/uL (4.0-10.0)
[2018-12-17 17:20] LABS: HEMOGLOBIN A1c 5.4 %
[2018-12-17 17:33] LABS: FOLATE 12.1 NG/ML; PERCENT SATURATION 37.1 % (13.2-45.0); THYROID STIMULATING HORMONE 0.554 uIU/ML (0.358-3.740); TOTAL 25(OH) VITAMIN D 24.4 NG/ML (30.0-100.0)
== END ==
LOC: M SFHCLERA 12:18
PROVIDERS: ATTEND Family Medicine
DX: Z98.890 Other specified postprocedural states (principal); K91.1 Postgastric surgery syndromes

== ENCOUNTER → 2019-05-13 | Outpatient (REF) | payer OTHER | LOC: M SFHCLERA 14:42 | PROVIDERS: ATTEND Family Medicine | DX: E55.9 Vitamin D deficiency, unspecified (principal) ==

== ENCOUNTER → 2019-06-01 | Outpatient (CLI) | payer OTHER ==
--- NOTE | 2019-06-01 13:46 | REP ---
Clinical: Venous insufficiency. Technique: Real time benito scale and color Doppler evaluation using linear high frequency transducer. Findings: Right lower extremity deep venous structures from the common femoral vein to the popliteal vein are normal and there is no evidence for deep venous thrombosis. Reflux evaluation of the right lower extremity is normal and there is no evidence for reflux through the deep or superficial system. Left lower extremity deep venous structures from the common femoral vein to the popliteal vein are normal and there is no evidence for deep venous thrombosis. Reflux evaluation demonstrates reflux through the greater saphenous vein proximally measuring 10 mm diameter with reflux duration of 3.5 seconds, at the mid greater saphenous vein measuring 5.1 mm diameter with reflux duration 3.7 seconds, and at the distal greater saphenous vein measuring 4.3 mm diameter with reflux duration 4.0 seconds. Impression: 1. No evidence for deep venous thrombosis. 2. Mild reflux through the left greater saphenous vein. Electronically Signed by Jim Gregory MD 06/01/2019 01:38 P
== END ==
LOC: M RAD 11:46
PROVIDERS: ATTEND Physician Assistant
DX: I87.2 Venous insufficiency (chronic) (peripheral) (principal)

== ENCOUNTER → 2019-06-30 | Outpatient (CLI) | payer OTHER ==
[~2019-06-30] MED LIST changes: +CYCL-707 PO; -CYCL10TA PO
== END ==
LOC: M PLALAB 16:03
PROVIDERS: ATTEND Nurse Practitioner Family
DX: Z12.72 Encounter for screening for malignant neoplasm of vagina (principal)

== ENCOUNTER → 2019-06-30 | Outpatient (CLI) | payer OTHER ==
--- NOTE | 2019-06-30 16:15 | REPMRS ---
Patient History The patient states she had a clinical breast exam in June 2019.Family history of breast cancer at age 40 in mother, colorectal cancer at age 40 in father, breast cancer at age 40 in maternal aunt, breast cancer at age 40 in maternal aunt. 3D TOMOSYNTHESIS WAS PERFORMED. VOLCUCOA BREAST DENSITY C. Digital Woman Screen Mammo: June 30, 2019 - Exam #: [id number] Bilateral CC and MLO view(s) were taken. Technologist: Vero Sol, Technologist Prior study comparison: October 28, 2016, bilateral digital mammo screening bilat, performed at [facility]. FINDINGS: The breast tissue is heterogeneously dense. This may lower the sensitivity of mammography. There has been no change in the appearance of the mammogram from the prior studies. There is a moderate amount of residual fibroglandular tissue which is fairly symmetric. There is no interval development of dominant mass, areas of architectural distortion, or clustered microcalcification typical of malignancy. Assessment: BI-RADS/ACR category 1 mammogram. Negative Mammogram. Recommendation Routine screening mammogram in 1 year (for women over age 40). This mammogram was interpreted with the aid of an FDA-approved computer-aided dectection system. THE LIFETIME RISK OF BREAST CANCER IS 26.2%, THEREFORE SUPPLEMENTAL SCREENING MRI OF THE BREASTS IS RECOMMENDED IN 6 MONTHS. Electronically Signed By: Ho Burgos MD 06/30/19 [id number]
== END ==
LOC: M WHC 14:03
PROVIDERS: ATTEND Nurse Practitioner Family
DX: Z12.31 Encounter for screening mammogram for malignant neoplasm of breast (principal); Z80.3 Family history of malignant neoplasm of breast; Z80.0 Family history of malignant neoplasm of digestive organs

== ENCOUNTER → 2019-07-06 | Outpatient (CLI) | payer OTHER ==
--- NOTE | 2019-07-06 18:25 | REP ---
Clinical: Left lower quadrant pain . Technique: Transabdominal pelvic ultrasound followed by transvaginal examination for better evaluation of the endometrium and adnexa with color Doppler evaluation of the ovaries. Findings: Bladder is unremarkable and measures 3.7 x 6.0 x 7.8 cm . Evidence for prior hysterectomy. Bilateral ovaries are normal in vascularity without evidence for torsion. Right ovary measures 4.0 x 2.8 x 3.7 cm and includes 2.9 x 2.0 x 1.7 cm complex cyst and 2.3 x 1.5 x 2.1 cm hyperechoic structure which may represent hemorrhagic cyst or dermoid. Left ovary measures 3.0 x 1.2 x 2.1 cm and includes 0.9 x 0.8 x 0.7 cm echogenic lesion with shadowing and calcification suggesting dermoid. No pelvic free fluid or adnexal mass. Impression: 1. Evidence of prior hysterectomy without pelvic fluid or mass. 2. Complex lesions in the bilateral ovaries as noted above may represent physiologic cysts and dermoid. Consider reevaluation in 4-6 weeks to evaluate for resolution.
== END ==
LOC: M WHC 12:45
PROVIDERS: ATTEND Nurse Practitioner Family
DX: R10.32 Left lower quadrant pain (principal); Z90.710 Acquired absence of both cervix and uterus

== ENCOUNTER → 2019-07-24 | Outpatient (CLI) | payer OTHER ==
--- NOTE | 2019-07-24 11:32 | REP ---
Clinical: Bony abnormality . Comparison: None . Technique: PA and lateral. Findings: The mediastinum and cardiac silhouette are normal. The lung [place] are clear and without acute consolidation, effusion, or pneumothorax. The skeletal structures are intact and normal. Impression: 1. No acute cardiopulmonary process. 2. No obvious osseous abnormality noted. Electronically Signed by Jim Gregory MD 07/24/2019 11:23 A
== END ==
LOC: M WUC 08:45
PROVIDERS: ATTEND Plastic Surgery Surgery of the Hand
DX: Q67.8 Other congenital deformities of chest (principal)

== ENCOUNTER 2019-10-22 06:43 | Day surgery (SDC) | payer OTHER ==
[2019-10-22] MEDS ORDERED: fentaNYL 100 MCG/2 ML INJECTION (J3010) ONE (07:04)
[2019-10-22] MEDS ORDERED: propofoL 500 MG/50 ML VIAL ONE ×2 (07:05→08:12)
[2019-10-22] MEDS ORDERED: SCOPOLAMINE 1MG TRANSDERMAL PATCH ONE (07:09)
[2019-10-22] MEDS ORDERED: LIDOCAINE W/EPINEPHRINE 1% 20ML VIAL ONE (07:17)
[2019-10-22] MEDS ORDERED: HEPARIN SOD (PORCINE) 5000UNITS/ML 1ML VIAL/SYRINGE ONE (07:17)
[2019-10-22] MEDS ORDERED: LIDOCAINE 2% 100MG/5ML SDV (FOR ANES.) ONE (07:17)
[2019-10-22] MEDS ORDERED: MIDAZOLAM INJ 2MG/2ML VIAL (J2250 PER 1MG) ONE (07:17)
[2019-10-22] MEDS ORDERED: CLINDAMYCIN 600 MG/50 ML PREMIX BAG ONE (07:56)
[2019-10-22] MEDS ORDERED: LIDOCAINE 1% MDV 20ML VIAL ONE (08:02)
[2019-10-22] MEDS ORDERED: KETOROLAC 60MG 2ML VIAL ONE (08:13)
--- NOTE | 2019-12-16 11:52 | RO ---
DATE OF OPERATION: 10/22/2019 PREOPERATIVE DIAGNOSIS: Venous insufficiency, left lower extremity. POSTOPERATIVE DIAGNOSIS: Venous insufficiency, left lower extremity. PROCEDURES: * Ultrasound-guided access, left greater saphenous vein. * Left greater saphenous vein radiofrequency ablation. SURGEON: Fatemeh Spencer MD ANESTHESIA: Monitored anesthesia care and local. INDICATION FOR PROCEDURE: Ms. Carreon is a very pleasant patient with significant symptomatic left lower extremity greater saphenous vein venous insufficiency. Risks, benefits and alternatives to a left greater saphenous vein radiofrequency ablation were explained to the patient and she was agreeable to proceed. Informed consent was obtained. PROCEDURE: The patient was brought to the operating room in stable condition and placed supine on the OR table. Monitored anesthesia care and antibiotics were administered without complication. Her left lower extremity was prepped and draped in a sterile fashion from the pelvis to the toes. A timeout was performed. Ultrasound was used to examine the greater saphenous vein from just below the knee to the groin to make sure the vein was in continuity throughout its length. Then, local anesthesia was administered to the skin and subcutaneous tissue over the greater saphenous vein at the knee. Ultrasound was used to guide access with a microneedle and a wire was then advanced into the greater saphenous vein under ultrasound guidance. The needle was removed and a 7-Mexican sheath was placed and flushed with saline. We then advanced a radiofrequency ablation catheter through the sheath into the greater saphenous vein until it was 2 cm from the saphenofemoral junction. This distance from the saphenofemoral junction was confirmed with ultrasound. We then injected tumescence along the length of the vein, surrounding the vein completely from the knee to the saphenofemoral junction. We then reconfirmed that the tip of the catheter was still 2 cm from the saphenofemoral junction with ultrasound. We then performed seven cycles of radiofrequency ablation along the length of the vein while compressing the vein with ultrasound. Following this, the catheter and sheath were removed and pressure was held for 5 minutes for good hemostasis. Steri- Strips were placed over the access site and over the areas of injection of the tumescence. We then placed dry gauze and Kerlix around the thigh and an Jason wrap was used to wrap the leg from the foot to the groin. The patient was then allowed to awaken from anesthesia and was taken to recovery in stable condition. She tolerated the anesthesia and procedure well. ESTIMATED BLOOD LOSS: 1 cc. SPECIMENS: None. DRAINS: None. COMPLICATIONS: None. PLAN: Our plan will be to see the patient back early next week with a repeat ultrasound of the left lower extremity to ensure that the greater saphenous vein has been successfully ablated and that there is no thrombus extending into the common femoral vein. We will see the patient following her imaging to see how she is doing postop. The patient has been extensively counseled about trying to elevate her legs over the weekend and to maintain compression on the left lower extremity over the weekend. She is agreeable to this plan. We appreciate the opportunity to participate in the care of this patient. YOVANY
== END 2019-10-22 09:40 | disposition home or self-care (01) ==
LOC: M SDC 06:43
PROVIDERS: ATTEND Surgery Vascular Surgery
DX: I87.2 Venous insufficiency (chronic) (peripheral) (principal); J45.909 Unspecified asthma, uncomplicated; Z88.0 Allergy status to penicillin; Z88.8 Allergy status to other drugs, medicaments and biological substances; Z91.041 Radiographic dye allergy status; Z90.710 Acquired absence of both cervix and uterus; Z98.51 Tubal ligation status; Z98.84 Bariatric surgery status
CPT/HCPCS: 36475; J1644; J1885; J2250; J3010

== ENCOUNTER → 2019-11-16 | Outpatient (REF) | payer OTHER ==
[2019-11-17 11:08] LABS: BASO % 0.5 % (0.0-1.0); EOS # 0.1 10^3/uL (0.0-0.5); HEMATOCRIT 43.2 % (36.0-47.0); HEMOGLOBIN 13.3 g/dl (12.0-15.5); LYMPH # 1.7 10^3/uL (1.5-5.0); LYMPH % 28.8 % (24.0-44.0); MEAN CORPUSCULAR HEMOGLOBIN 27.7 pg (27.0-33.0); MEAN CORPUSCULAR HGB CONC 30.8 g/dl (32.0-36.5); MEAN CORPUSCULAR VOLUME 89.8 fl (80.0-96.0); MONO # 0.5 10^3/uL (0.0-0.8); NEUTROPHILS # 3.5 10^3/uL (1.5-8.5); PLATELET COUNT, AUTOMATED 219 10^3/uL (150-450); RED BLOOD COUNT 4.81 10^6/uL (4.00-5.40)
[2019-11-17 11:22] LABS: BLOOD UREA NITROGEN 14 MG/DL (7-18); CALCIUM LEVEL 9.3 MG/DL (8.5-10.1); CARBON DIOXIDE LEVEL 29 MEQ/L (21-32); CHLORIDE LEVEL 105 MEQ/L (98-107); CREATININE FOR GFR 0.56 MG/DL (0.55-1.30); FERRITIN 9 NG/ML (8-252); GLOMERULAR FILTRATION RATE > 60.0 (>58); GLUCOSE, FASTING 92 MG/DL (70-100); IRON (FE) 102 UG/DL (50-170); PERCENT SATURATION 22.7 % (13.2-45.0); POTASSIUM SERUM 4.6 MEQ/L (3.5-5.1); SODIUM LEVEL 137 MEQ/L (136-145); TOTAL IRON BINDING CAPACITY 450 UG/DL (250-450)
[2019-11-17 12:00] LABS: HEMOGLOBIN A1c 5.3 %
[2019-11-17 12:55] LABS: TOTAL 25(OH) VITAMIN D 19.9 NG/ML (30.0-100.0); VITAMIN B12 LEVEL 481 PG/ML (247-911)
== END ==
LOC: M SFHCLERA 11:15
PROVIDERS: ATTEND Family Medicine
DX: G25.81 Restless legs syndrome (principal); E16.2 Hypoglycemia, unspecified

== ENCOUNTER → 2019-12-10 | Outpatient (CLI) | payer OTHER ==
--- NOTE | 2019-12-15 11:19 | REP ---
PELVIC SONOGRAPHY HISTORY: Recheck bilateral ovarian cysts. COMPARISON: Pelvic sonography 07/06/2019. SONOGRAPHIC FINDINGS: The uterus is surgically absent. Visualized bladder mcmullen are smooth. Filled bladder volume is calculated at 103 mL. Right ovarian dimensions are 4.0 x 2.3 x 3.5 cm. Doppler flow is present in the right ovary. Resistive index 0.74. There is a 1.3 cm simple follicle cyst in the right ovary. There are two hyperechoic lesions in the right ovary measuring 2.8 x 2.4 x 2.0 cm and 1.2 x 0.9 x 0.8 cm respectively. These may be hemorrhagic cysts versus dermoid cysts. Similar findings were noted previously. Left ovarian dimensions are 3.3 x 1.5 x 1.3 cm. There is a small echogenic area in the left ovary 1.0 x 0.8 x 0.8 cm. Doppler flow is present in the left ovary, resistive index 0.38. IMPRESSION: Hyperechoic areas persist in the right ovary, which may be complex cysts versus dermoid. The largest is 2.8 cm. A small echogenic focus is seen in the left ovary 1.0 cm in greatest diameter. Post hysterectomy. MTDD
== END ==
LOC: M WHC 11:55
PROVIDERS: ATTEND Nurse Practitioner Family
DX: N83.01 Follicular cyst of right ovary (principal)

== ENCOUNTER → 2020-02-23 | Outpatient (CLI) | payer OTHER ==
[~2020-02-23] MED LIST changes: +OXYC1TAB23 PO; +VITAMIN B-12 SC
== END ==
LOC: M LABSMTC 11:07
PROVIDERS: ATTEND Anesthesiology
DX: Z01.812 Encounter for preprocedural laboratory examination (principal); Z20.828 Contact with and (suspected) exposure to other viral communicable diseases

== ENCOUNTER 2020-02-28 06:12 | Day surgery (SDC) | payer OTHER ==
[~2020-02-28] VITALS: Ht 162.6 cm; Wt 79.8 kg
[~2020-02-28 06:12] MED LIST changes: +LIDOCAINE 1% MDV 20ML VIAL SQ PRN; +LR 1,000 ML IV ONE; -OXYC1TAB23 PO
[2020-02-28 07:12] LABS: HEMOGLOBIN 12.2 g/dl (12.0-15.5); MEAN CORPUSCULAR HEMOGLOBIN 27.1 pg (27.0-33.0); MEAN CORPUSCULAR HGB CONC 32.1 g/dl (32.0-36.5); MEAN CORPUSCULAR VOLUME 84.3 fl (80.0-96.0); PLATELET COUNT, AUTOMATED 193 10^3/uL (150-450); RED BLOOD COUNT 4.51 10^6/uL (4.00-5.40); WHITE BLOOD COUNT 5.1 10^3/uL (4.0-10.0)
[2020-02-28] MEDS ORDERED: BUPIVACAINE HCL 0.25% 30ML VIAL As Ordered ONE (07:17)
[2020-02-28] MEDS ORDERED: SCOPOLAMINE 1MG TRANSDERMAL PATCH As Ordered ONE (07:17)
[2020-02-28] MEDS ORDERED: propofoL 200 MG/20 ML VIAL As Ordered ONE (07:42)
[2020-02-28] MEDS ORDERED: dexameTHASONE 4 MG/ML 1ML VIAL (J1100 PER 1MG) As Ordered ONE (07:42)
[2020-02-28] MEDS ORDERED: MIDAZOLAM INJ 2MG/2ML VIAL (J2250 PER 1MG) As Ordered ONE (07:42)
[2020-02-28] MEDS ORDERED: LIDOCAINE 2% 100MG/5ML SDV (FOR ANES.) As Ordered ONE (07:42)
[2020-02-28] MEDS ORDERED: ROCURONIUM BROMIDE 50 MG/5 ML VIAL As Ordered ONE ×2 (07:42→08:15)
[2020-02-28] MEDS ORDERED: fentaNYL 100 MCG/2 ML INJECTION (J3010) As Ordered ONE ×2 (07:42→09:42)
[2020-02-28] MEDS ORDERED: HYDROmorphone HCL 2 MG/ML 1ML VIAL (J1170) As Ordered ONE (07:42)
[2020-02-28] MEDS ORDERED: SCOPOLAMINE 1MG TRANSDERMAL PATCH TOP ONE (07:45)
[2020-02-28] MEDS ORDERED: ACETAMINOPHEN 1000MG 100ML IV BTL (OFIRMEV) (J0131 PER 10MG) As Ordered ONE (08:09)
[2020-02-28] MEDS ORDERED: METOCLOPRAMIDE INJ 10MG/2ML VIAL (J2765 PER 1) As Ordered ONE (08:21)
[2020-02-28] MEDS ORDERED: SUGAMMADEX SODIUM 500 MG/5 ML VIAL (BRIDION) As Ordered ONE (08:22)
[2020-02-28] MEDS ORDERED: KETOROLAC 60MG 2ML VIAL As Ordered ONE (08:22)
[2020-02-28] MEDS ORDERED: OXYC1TAB23 PO (09:15)
[2020-02-28] MEDS ORDERED: PROMETHAZINE INJ 25 MG/ML VIAL (J2550) As Ordered ONE (09:29)
--- NOTE | 2020-02-28 09:33 | ROOPDOC ---
[facility] Report Of Operation Report of Operation DATE OF PROCEDURE: 02/28/20 PREPROCEDURE DIAGNOSES: Right ovarian dermoid cyst, left ovarian simple cyst. POSTPROCEDURE DIAGNOSES: same. PROCEDURE: Robotic assisted laparoscopic bilateral salpingo-oophorectomy. SURGEON: Byron Champion MD ANESTHESIA: GETA. ESTIMATED BLOOD LOSS: Approximately 30 mL. COMPLICATIONS: none. FINDINGS: Surgically absent uterus. 4 cm right ovarian mass c/w dermoid, additional probable fibroma of right ovary. Simple cyst on left ovary. Adhesions of right ovary to right ovarian fossa/right ureter. Adhesions of sigmoid colon to left ovary. Upper abdominal adhesions near stomach. PROCEDURE NOTE: The patient was taken to the OR where she was given general endotracheal anesthesia. She was prepped and draped in the sterile fashion in the supine position. A Maloney catheter was placed. A periumbilical incision was made with a scalpel. A Veress needle was placed there the incision. An intraperitoneal location of the Veress needle was assessed with the use of a saline filled syringe. An 8 mm port was inserted using Visiport. Three 8 mm suprapubic ports were inserted under direct visualization. The patient was placed in Trendelenburg position. The [employer] was docked to the ports. Using the fenestrated bipolar and Synchroseal the IP Ligaments were coagulated and incised. The broad ligament attachments to the Fallopian tubes were incised. The right ovary was carefully dissected off the peritoneal reflection of the right ureter. Both ovaries were placed in an endo-catch bag and removed through the umbilical port. The fascia of the umbilical port was closed with O-Vicryl suture. The skin was closed with 4-O Monocryl subcuticular sutures. Sponge, instrument, needle counts were correct. The patient went to in stable condition.. BYRON CHAMPION MD Feb 28, 2020 09:33
[2020-02-28] MEDS: PROMETHAZINE INJ 25 MG/ML VIAL (J2550) IV PRN ×2 (09:34→10:07)
[2020-02-28] MEDS: fentaNYL 100 MCG/2 ML INJECTION (J3010) IV PRN ×6 (09:47→10:28)
[2020-02-28] MEDS ORDERED: METOCLOPRAMIDE INJ 10MG/2ML VIAL (J2765 PER 1) IV PRN (10:00)
[2020-02-28] MEDS ORDERED: oxyCODONE 5MG TAB PO PRN (10:00)
[2020-02-28] MEDS ORDERED: LR 1,000 ML IV SCH (10:00)
[2020-02-28] MEDS ORDERED: MEPERIDINE INJ 25 MG/ML VIAL (J2175) IV PRN (10:00)
[2020-02-28 12:20] VITALS: BP 121/59
== END 2020-02-28 12:35 | disposition home or self-care (01) ==
LOC: M SDC 06:12
PROVIDERS: ATTEND Specialist
DX: N92.4 Excessive bleeding in the premenopausal period (principal); N83.292 Other ovarian cyst, left side; N83.11 Corpus luteum cyst of right ovary; K57.92 Diverticulitis of intestine, part unspecified, without perforation or abscess without bleeding; J45.909 Unspecified asthma, uncomplicated; Z91.041 Radiographic dye allergy status; Z88.0 Allergy status to penicillin; Z88.8 Allergy status to other drugs, medicaments and biological substances
CPT/HCPCS: 36415; 58661; 85027; 86850; 86900; 86901; 88305; J0131; J1100; J1170; J1885; J2250; J2765; J3010; S2900

== ENCOUNTER → 2020-03-30 | Outpatient (CLI) | payer OTHER ==
[~2020-03-30] MED LIST changes: +D3400CAP PO; +IRON27TA2 PO; -LIDOCAINE 1% MDV 20ML VIAL SQ PRN; -LR 1,000 ML IV ONE; +OXYC1TAB23 PO; +TRAM50TA2 PO
== END ==
LOC: M LABSMTC 09:49
PROVIDERS: ATTEND Anesthesiology
DX: Z01.812 Encounter for preprocedural laboratory examination (principal); Z20.822 Contact with and (suspected) exposure to COVID-19

== ENCOUNTER → 2020-03-30 | Outpatient (CLI) | payer OTHER ==
[2020-03-30 12:22] LABS: BASO % 0.6 % (0.0-1.0); EOS # 0.3 10^3/uL (0.0-0.5); HEMATOCRIT 41.3 % (36.0-47.0); HEMOGLOBIN 12.9 g/dl (12.0-15.5); LYMPH # 1.8 10^3/uL (1.5-5.0); LYMPH % 39.7 % (24.0-44.0); MEAN CORPUSCULAR HEMOGLOBIN 27.9 pg (27.0-33.0); MEAN CORPUSCULAR HGB CONC 31.2 g/dl (32.0-36.5); MEAN CORPUSCULAR VOLUME 89.2 fl (80.0-96.0); MONO # 0.4 10^3/uL (0.0-0.8); MONO % 9.1 % (0.0-5.0); NEUTROPHILS # 2.1 10^3/uL (1.5-8.5); NEUTROPHILS % 44.4 % (36.0-66.0); PLATELET COUNT, AUTOMATED 196 10^3/uL (150-450); RED BLOOD COUNT 4.63 10^6/uL (4.00-5.40); WHITE BLOOD COUNT 4.6 10^3/uL (4.0-10.0)
[2020-03-30 13:00] LABS: BLOOD UREA NITROGEN 13 MG/DL (7-18); CALCIUM LEVEL 9.3 MG/DL (8.5-10.1); CARBON DIOXIDE LEVEL 31 MEQ/L (21-32); CHLORIDE LEVEL 103 MEQ/L (98-107); CREATININE FOR GFR 0.72 MG/DL (0.55-1.30); GLOMERULAR FILTRATION RATE > 60.0 (>58); GLUCOSE, FASTING 162 MG/DL (70-100); POTASSIUM SERUM 4.7 MEQ/L (3.5-5.1); SODIUM LEVEL 139 MEQ/L (136-145)
== END ==
LOC: M WUC 10:35
PROVIDERS: ATTEND Family Medicine
DX: Z01.818 Encounter for other preprocedural examination (principal)

== ENCOUNTER 2020-04-04 09:29 | Day surgery (SDC) | payer OTHER ==
[~2020-04-04] VITALS: Ht 165.1 cm; Wt 77.9 kg
[~2020-04-04 09:29] MED LIST changes: +HEPARIN SOD (PORCINE) 5000UNITS/ML 1ML VIAL/SYRINGE SQ ONE; +LIDOCAINE 2% 100MG/5ML SDV (FOR ANES.) As Ordered ONE; +LR 1,000 ML IV ONE; +MIDAZOLAM INJ 2MG/2ML VIAL (J2250 PER 1MG) As Ordered ONE; +ONDANSETRON 4MG/2ML VIAL As Ordered ONE; +ROCURONIUM BROMIDE 50 MG/5 ML VIAL As Ordered ONE; -TRAM50TA2 PO; +dexameTHASONE 4 MG/ML 1ML VIAL (J1100 PER 1MG) As Ordered ONE; +fentaNYL 250 MCG/5 ML INJECTION (J3010) As Ordered ONE; +propofoL 200 MG/20 ML VIAL As Ordered ONE
[2020-04-04] MEDS ORDERED: BUPIVACAINE LIPOSOME/PF 1.3% 20ML VIAL (13.3MG/ML)(EXPAREL)(C9290 PER1MG) As Ordered ONE (10:52)
[2020-04-04] MEDS ORDERED: BACITRACIN PWD 50,000 UNITS VIAL As Ordered ONE (10:52)
[2020-04-04] MEDS ORDERED: LIDOCAINE 1% MDV 20ML VIAL As Ordered ONE (10:52)
[2020-04-04] MEDS ORDERED: EPINEPHrine INJ 1 MG/ML 1ML AMP As Ordered ONE (10:53)
[2020-04-04] MEDS ORDERED: CLINDAMYCIN 300 MG in IV 1 EA IV ONE (11:15)
[2020-04-04] MEDS ORDERED: HYDROmorphone HCL 2 MG/ML 1ML VIAL (J1170) As Ordered ONE (11:37)
[2020-04-04] MEDS ORDERED: METOCLOPRAMIDE INJ 10MG/2ML VIAL (J2765 PER 1) As Ordered ONE (11:50)
[2020-04-04] MEDS ORDERED: ROCURONIUM BROMIDE 50 MG/5 ML VIAL As Ordered ONE (11:55)
[2020-04-04] MEDS ORDERED: ACETAMINOPHEN 1000MG 100ML IV BTL (OFIRMEV) (J0131 PER 10MG) As Ordered ONE (12:09)
[2020-04-04] MEDS ORDERED: SUGAMMADEX SODIUM 500 MG/5 ML VIAL (BRIDION) As Ordered ONE (12:09)
--- NOTE | 2020-04-04 14:10 | POST-OPPD ---
Postoperative Procedure Note Date Of Procedure: Apr 04, 2020 PREOPERATIVE DIAGNOSIS: Bilateral breast hypertrophy and ptosis. POSTOPERATIVE DIAGNOSIS: same FINDINGS: Breast ptosis, asymmetry. PROCEDURE: Bilateral mastopexy and small breast reduction. SURGEON: Dr Stanley XEROX MACHINE OPERATOR: Dr Edward. ANESTHESIA: general SPECIMENS: Right breast 227gm, Left breast 331 gm ESTIMATED BLOOD LOSS: 100 cc REPLACED: none DRAINS: 10 mm MARYELLEN flat x 2. COMPLICATIONS: none POSTOPERATIVE CONDITION: stable KENDALL STANLEY DO Apr 04, 2020 14:10
[2020-04-04] MEDS ORDERED: oxyCODONE 5MG TAB As Ordered ONE (14:11)
[2020-04-04] MEDS ORDERED: oxyCODONE 5MG TAB PO PRN (14:15)
[2020-04-04] MEDS ORDERED: traMADol 50 MG TAB PO PRN (14:15)
[2020-04-04] MEDS ORDERED: PERCOCET 5MG/325MG TAB PO PRN (14:15)
[2020-04-04] MEDS ORDERED: PROMETHAZINE INJ 25 MG/ML VIAL (J2550) IV PRN (14:15)
[2020-04-04] MEDS ORDERED: fentaNYL 100 MCG/2 ML INJECTION (J3010) IV PRN (14:15)
[2020-04-04] MEDS ORDERED: LR 1,000 ML IV SCH (14:15)
[2020-04-04] MEDS ORDERED: HYDROMORPHONE HCL 0.5 MG/ 0.5 ML SYRINGE (J1170 PER 1) IV PRN (14:15)
[2020-04-04] MEDS ORDERED: ACETAMINOPHEN TAB 650MG DOSE (2X325MG) PO PRN (14:15)
[2020-04-04] MEDS: LR 1,000 ML IV SCH (15:24)
[2020-04-04 15:30] VITALS: BP 119/71
[2020-04-04 16:00] VITALS: BP 120/69
[2020-04-04 17:00] VITALS: BP 125/60
[2020-04-04] MEDS: ACETAMINOPHEN TAB 650MG DOSE (2X325MG) PO PRN ×2 (17:13→21:08)
[2020-04-04 19:00] VITALS: BP 108/63
[2020-04-04 22:00] VITALS: BP 113/63
[2020-04-05 02:00] VITALS: BP 125/56
[2020-04-05] MEDS: ACETAMINOPHEN TAB 650MG DOSE (2X325MG) PO PRN (04:48)
[2020-04-05] MEDS: LR 1,000 ML IV SCH (04:49)
[2020-04-05 06:00] VITALS: BP 127/58
--- NOTE | 2020-04-05 09:46 | IPNPDOC ---
Subjective General Date Seen: Apr 05, 2020 Subject Chief Complaint/History The patient is a 44-year-old female admitted with a reason for visit of Hypertrophy, Ptosis Bilateral Breasts. Patient status post bilateral breast reduction and mastopexy. Postoperative day 1. Feeling well taking Tylenol for pain. Ambulating to the bathroom. Denies nausea, vomiting. Current Medications Current Medications Current Medications Medications (Trade) Dose Ordered Sig/Ravi Route PRN Reason Start Time Stop Time Status Last Admin Dose Admin Acetaminophen (Tylenol Tab) 650 mg Q6H PRN PO MILD PAIN (PS 1-4) AND FEVER 04/04/20 14:15 04/05/20 04:48 Acetaminophen (Tylenol Tab) 650 mg Q6HP PRN PO PAIN / FEVER 04/04/20 14:15 04/04/20 14:26 DC Fentanyl Citrate (Sublimaze) 25 mcg Q5MP PRN IV PAIN LEVEL 5-10 04/04/20 14:15 04/04/20 15:15 DC Hydromorphone HCl (Dilaudid) 0.2 mg Q5MP PRN IV PAIN LEVEL 4-7 04/04/20 14:15 04/04/20 15:15 DC Lactated Ringer's 1,000 ml @ 75 mls/hr [id number] IV 04/04/20 14:10 04/05/20 04:49 Lactated Ringer's 1,000 ml @ 100 mls/hr Q10H IV 04/04/20 14:15 04/04/20 15:15 DC Miscellaneous (Unresolved Clarification Entry) SEE LABEL COMMENTS DAILY XX 04/03/20 09:00 04/04/20 10:59 DC Oxycodone HCl (Roxicodone, Oxyir) 5 mg ASDIRECTED PRN PO PAIN LEVEL 1-4 04/04/20 14:15 04/04/20 15:15 DC 04/04/20 14:18 Oxycodone/ Acetaminophen (Percocet 5mg/ 325mg Tablet) 1 tab Q4HP PRN PO PAIN LEVEL 8-10 04/04/20 14:15 Promethazine HCl (PHENERGAN INJection) 25 mg Q6HP PRN IV NAUSEA 04/04/20 14:15 Tramadol HCl (Ultram) 50 mg Q4HP PRN PO MODERATE PAIN (PS 5-7) 04/04/20 14:15 04/05/20 08:35 Allergies Coded Allergies: ondansetron (Verified Allergy, Severe, TONGUE SWELLING, 04/04/20) piperacillin (Verified Allergy, Severe, FACIAL SWELLING, 04/04/20) tazobactam (Verified Allergy, Severe, FACIAL SWELLING, 04/04/20) Contrast Media (Verified Allergy, Intermediate, HIVES, 04/04/20) cortisone (Verified Allergy, Mild, ELEVATED BP, FACIAL FLUSHING, 04/04/20) Objective Physical Examination Examination GENERAL APPEARANCE:Patient seen, laying in bed, awake, alert, and oriented. Comfortable, in no acute distress. SKIN: Warm and moist. BREAST: Right and left soft, non-tender incisions intact. MARYELLEN drains: L10/R15 cc/24 hr. NAC: Viable, warm, symmetrical, mild post-op ecchymosis, no expanding hematoma. LUNGS: Clear to auscultation bilaterally. No wheezing appreciated. HEART: No chest wall abnormalities. Regular rate and rhythm with no murmurs appreciated. ABDOMEN: Abdomen is soft, non-tender, non-distended. EXTREMITIES: No edema identified. No calf tenderness. Vital Signs Vital Signs Date Time Temp Pulse Resp B/P (MAP) Pulse Ox O2 Delivery O2 Flow Rate FiO2 04/05/20 09:05 16 Room Air 04/05/20 06:00 97.0 75 127/58 (81) 97 04/04/20 15:00 2.0 I&Os I&O- Last 24 Hours up to 6 AM 04/05/20 06:00 Intake Total 1860 ml Output Total 145 ml Balance 1715 ml Impression Bilateral breast hypertrophy. Stable for discharge today. Monitor MAREYLLEN drains at home. Dressings changed this morning. Instructions given. Follow-up plastic surgery Friday. Plan / VTE VTE Prophylaxis Ordered?: Yes KENDALL STANLEY DO Apr 05, 2020 09:46
[2020-04-05] MEDS ORDERED: TRAM50TA2 PO (09:49)
--- NOTE | 2020-04-05 09:51 | ROOPDOC ---
[facility] Report Of Operation Report of Operation PREOPERATIVE DIAGNOSIS: Bilateral breast hypertrophy and ptosis. POSTOPERATIVE DIAGNOSIS: same FINDINGS: Breast ptosis, asymmetry. PROCEDURE: Bilateral mastopexy and small breast reduction. SURGEON: Dr Stanley FUELER: Dr Edward. ANESTHESIA: general SPECIMENS: Right breast 227gm, Left breast 331 gm ESTIMATED BLOOD LOSS: 100 cc REPLACED: none DRAINS: 10 mm MARYELLEN flat x 2. COMPLICATIONS: none POSTOPERATIVE CONDITION: stable DESCRIPTION OF PROCEDURE: This is a 44-year-old female who upper back and neck pain worsened by large and asymmetric breasts. She wears a 38 DD bra. She is scheduled for bilateral mastopexy was small breast reduction. Risks, benefits, and alternatives were discussed with the patient in detail, and she is ready to proceed. The day of surgery, she was marked in the upright position and informed consent was obtained. She measured right 31.5cm left 35 cm from sternal notch to nipple on both sides, IMF at 25 cm bilaterally. She was brought into the operating room and placed in the supine position. Preoperative antibiotics were given. Sequential pneumatic stocking were placed on the lower calves. General anesthesia was induced. She was prepped and draped in the usual sterile fashion. We started our procedure on the right side. Her nipple areolar complex was outli alex 42 mm in diameter, and the patient was marked according superior medial pedicle. We started our incision by scoring the nipple areolar complex area, and then dissection was continued until the inferior lateral portion of the breast was resected. Hemostasis was obtained using electrocautery. The pedicle was de- epithelialized using Vazquez scissors, good perfusion to the nipple at all times. Wound was irrigated with Bacitracin solution. We used Exparel 6 cc for local anesthesia to infiltrate in the Pectoralis muscle as well as the breast tissue. Than pedicle was turned superior to its new location at 25 cm from sternal notch. The mound was re-created using conforming 0 Vicryl sutures. Pillars were closed with interrupted 3-0 Monocryl sutures. The vertical limb was 7 cm. Excess tissue inferiorly was measured and resected, creating the horizontal scar. Nipple area complex was brought into view through the new opening and sutured in place with 3-0 and 4-0 Monocryl sutures and a 5-0 plain gut suture A 10 mm Neville kson-Demarco drain was placed through the lateral portion of the horizontal incision. Then we turned our attention to the left side. Mirror procedure was carried out. Again, resection was done according to superior-medial pedicle using electrocautery and PEEK cautery. Hemostasis was obtained. The pedicle was in good viable condition. Exparel was infiltrated through the pectoralis muscle and the breast tissue 6 cc. Than pedicle was turned superior to its new location at 25 cm from sternal notch. The mound was re-created using conforming 0 Vicryl sutures. Pillars were closed with interrupted 3-0 Monocryl sutures. The vertical limb was 7 cm. Excess tissue inferiorly was measured and resected, creating the horizontal scar. Nipple area complex was brought into view through the new opening and sutured in place with 3-0 and 4-0 Monocryl sutures and a 5-0 plain. A 10 mm Addy-Demarco drain was placed through the lateral portion of the horizontal incision. Dr. Harrison was present for the whole procedure and was assisting in retraction, hemostasis, irrigation of the breast and final suturing. Resected tissue sent to pathology in two specimens right and left breast tissue. Weight on the right 227 g, on the left, 331 gm. Dressings were applied to vertical and horizontal incision: Prineo. Nipples areolar complex: Xeroform and a bulky dressing with a surgical bra. Patient was extubated in the operating room without difficulty and was transferred to the recovery room in stable condition. KENDALL STANLEY DO Apr 05, 2020 09:51
== END 2020-04-05 12:05 | disposition home or self-care (01) ==
LOC: M SDC 09:29 → M MS5PR 15:00 → M SDC 04-05 12:05
PROVIDERS: ATTEND Plastic Surgery Surgery of the Hand
DX: N62 Hypertrophy of breast (principal); N64.81 Ptosis of breast; K57.92 Diverticulitis of intestine, part unspecified, without perforation or abscess without bleeding; Z98.84 Bariatric surgery status; Z91.041 Radiographic dye allergy status; Z88.0 Allergy status to penicillin; Z88.8 Allergy status to other drugs, medicaments and biological substances
CPT/HCPCS: 19316; 19318; 88305; 96360; 96361; C9290; J0131; J0171; J1100; J1170; J1644; J2250; J2765; J3010

== ENCOUNTER 2020-04-10 12:12 | Emergency (ER) | payer OTHER ==
[~2020-04-10] VITALS: Ht 165.1 cm; Wt 75.9 kg
[~2020-04-10 12:12] MED LIST changes: -HEPARIN SOD (PORCINE) 5000UNITS/ML 1ML VIAL/SYRINGE SQ ONE; -LIDOCAINE 2% 100MG/5ML SDV (FOR ANES.) As Ordered ONE; -LR 1,000 ML IV ONE; -MIDAZOLAM INJ 2MG/2ML VIAL (J2250 PER 1MG) As Ordered ONE; -ONDANSETRON 4MG/2ML VIAL As Ordered ONE; -ROCURONIUM BROMIDE 50 MG/5 ML VIAL As Ordered ONE; +TRAM50TA2 PO; -dexameTHASONE 4 MG/ML 1ML VIAL (J1100 PER 1MG) As Ordered ONE; -fentaNYL 250 MCG/5 ML INJECTION (J3010) As Ordered ONE; -propofoL 200 MG/20 ML VIAL As Ordered ONE
[2020-04-10 12:14] VITALS: BP 135/64
--- OUTSIDE RECORDS SUMMARY | 2020-04-10 12:25 | CCD ---
Author Author Efrain Johnson Organization Unknown Address [address] [address] Phone Care Team Providers Care Plastics Tooling Engineer Name Role Phone Alex, Jalyn PCP Allergies, Adverse Reactions, Alerts No Data in Section Problem List Concept Problem Description Status Start Date Created Date Resolv ed Date Snomed Code F43.11 Post-traumatic stress disorder, acute Active F41.9 Unspecified Anxiety Disorder Active 03/16/2020 Medications No Data in Section Social History Social History Element Description Concept Effective Date Smoking Status Unknown if ever smoked [id number] Immunizations No Data in Section Vital Signs No Data in Section Procedures Date Concept Id Description Targeted Site Concept Targeted Site Concept Type 03/16/2020 92008-94 [facility]Family and client 1 hr. CPT Patient has no history of implantable de vices Encounters Encounter Start Date End Date Encounter Type Description Diagnosis Di agnosis Desc Location Author First Name Author Last Name Npid Taxonomy Cod e Taxonomy Desc Phone Number Location Addr1 Location Addr2 Location [facility] Location [facility] Location [facility] [id number] 03/16/2020 03/16/2020 58238-85 [facility]Family and client 1 hr. F43.11 Post-traumatic stress disorder, acute [facility] Alex Jalyn [id number] Mental Health [id number] [address] [place], [place] 1 [facility] [address] Plan of Treatment No Data in Section Lab Results No Data in Section Instructions No Data in Section Insurance Providers Insurance Id Policy Effective Date Policy Thru Date Company N ovidio [id number] 2017 [employer] Managed MBetina crenshaw
--- OUTSIDE RECORDS SUMMARY | 2020-04-10 12:25 | CCD | Continuity of Care Document ---
Author Author Efrain STANLEY DO Organization Unknown Address [address] [place] [address] Phone [phone] Care Team Providers Care Cork Insulator Name Role Phone Brown Horowitz D.O. AUTM [phone] [facility] Records AUTM [phone] Problems Description No Information Available Social History Type Date Description Comments Sex Female ETOH Use Denies alcohol use Tobacco Use Start: Unknown Non Smoker Recreational Drug Use Denies Drug Use Smoking Status Reviewed: 05/31/19 Non Smoker Allergies, Adverse Reactions, Alerts Active Allergies Reaction Severity Comments Date Zofran Tongue Swelling 04/01/2016 Szozan Body Swelling 04/01/2016 IVP Dye Hives 04/01/2016 Cortizone 05/27/2019 Medications Active Medications SIG Qnty Indications Ordering Provide r Date Cyanocobalamin 1000mcg/ML Solution Every Two Weeks Unknown Immunizations Description No Information Available Vital Signs Date Vital Result Comment 03/27/2020 9:29am Body Temperature 96.1 F 11/03/2019 10:12am BP Systolic 118 mmHg BP Diastolic 82 mmHg Heart Rate 80 /min Respiratory Rate 16 /min Body Temperature 97.4 F Height 64 inches 5'4" Weight 180.00 lb BMI (Body Mass Index) 30.9 kg/m2 Florien Body Weight 120 lb Weight 81.648 kg BSA (Body Surface Area) 1.87 m2 Results Description No Information Available Procedures Description No Information Available Medical Devices Description No Information Available Encounters Type Date Location Provider Dx Diagnosis Office Visit 11/03/2019 10:00a [facility] Ivette Stanley DO N62 Hypertrophy of breast 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 N64.81 Ptosis of breast Assessments Date Code Description Provider 11/03/2019 N62 Hypertrophy of breast Ivette Pale y, DO 11/03/2019 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 Ivette Stanley, DO 11/03/2019 N64.81 Ptosis of breast Ivette Stanley, DO Plan of Treatment Future Appointment(s):* 04/04/2020 11:00 am - Ivette Stanley, DO at [facility] * 04/07/2020 10:15 am - Ivette Stanley, DO at [facility] 11/03/2019 - Ivette Stanley, DO* N62 Hypertrophy of breast* Comments:* CXR reviewed, no abnormality.Patient is a good candidate for bilateral mastopexy with small breast reduction for correction of asymmetry.The procedure should lighten and stabilize breast positioning which in turn will reduce burden and pulling on the upper back/neck/shoulders.Long discussion with patient regarding risks, benefits and alternatives of mastopexy/breast reduction. The risks include, but not limited, to need for further surgery, unacceptable cosmetic results, asymmetry, pain, scarring, hematoma, seroma, infection, wound dehiscence, loss of nipple areolar complex, numbness and loss of sensation, inability to breast feed, pain, disability, deep vein thrombosis, and PE. The patient states understanding and agree to proceed.Procedure and post op period was discussed with patient at length.All questions answered. RTO post op. 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
--- OUTSIDE RECORDS SUMMARY | 2020-04-10 12:25 | CCD | Continuity of Care Document ---
Author Author Efrain STANLEY DO Organization Unknown Address [address] [place] [address] Phone [phone] Care Team Providers Care Associate Professor Of Chemistry Name Role Phone Brown Horowitz D.O. AUTM [phone] [facility] Records AUTM [phone] Problems Description No Information Available Social History [...] SIG Qnty Indications Ordering Provide r Date Zyrtec Allergy 10mg Capsules 1 by mouth every day 30caps Ivette Stanley DO 04/07/2020 Loreta Allergy 60mg Tablets 1 by mouth every day 30tabs Ivette Stanley DO 04/07/2020 Cipro 500mg Tablets 1 tab by mouth twice a day 14tabs Ivette Stanley, 04/07/2020 Cyanocobalamin 1000mcg/ML Solution Every Two Weeks Unknown Immunizations Description No Information Available Vital Signs Date Vital Result Comment 04/07/2020 9:58am Body Temperature 97.7 F 03/27/2020 9:29am Body Temperature 96.1 F Results Test Acquired Date Facility Test Result H/L Range Note Laboratory test finding 04/04/2020 [facility] Main Lab [address], [place] [id number] [phone] Pathology Request For Service (SEE NOTE) 1 1 FINAL DIAGNOSIS A - Breast, right, reduction: Benign breast parenchyma. B - Breast, left, reduction: Benign breast parenchyma. 04/05/2020 - 1553 CLINICAL DIAGNOSIS Bilateral breast hypertrophy, bilateral breast ptosis, congenital deformities of chest 04/05/2020 - 1338 GROSS DIAGNOSIS A - Received in formalin labeled "right breast tissue, 227 grams" consists of multiple fragments of skin and attached fibroadipose tissue measuring 22 x 10 x 5 cm in aggregate. Sectioning through the specimen reveals lobulated fibroadipose tissue and fibrous parenchyma with no grossly apparent lesions. Cell Biologist sections in one block. B - Received in formalin labeled "left breast tissue, 331 grams" consists of multiple fragments of skin and attached fibroadipose tissue measuring 16 x 15 x 4.0 cm in aggregate. Sectioning through the specimen reveals lobulated fibroadipose tissue and fibrous parenchyma with no grossly apparent lesions. Cell Biologist sections in one block. 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 N64.81 Ptosis of breast Assessments Date Code Description Provider 04/04/2020 N62 Hypertrophy of breast Ivette Pale y, DO 04/04/2020 N64.81 Ptosis of breast Ivette Keren, DO 03/27/2020 N62 Hypertrophy of breast Ivette Pale y, DO 03/27/2020 N64.81 Ptosis of breast Ivette Keren, DO 03/27/2020 Z01.818 Encounter for other preprocedura l examination Ivette Keren, DO 11/03/2019 N62 Hypertrophy of breast Ivette Pale y, DO 11/03/2019 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
--- OUTSIDE RECORDS SUMMARY | 2020-04-10 12:25 | CCD ---
Author Author [facility] ems Organization [facility] ems Address Unknown Phone Unavailable Care Team Providers Care Lens Generator Name Role Phone Brown Horowitz Unavailable PROBLEMS Type Condition ICD9-CM Code HWO04-AH Code Onset Dates Condition S tatus SNOMED Code Notes Problem Insomnia, unspecified type G47.00 Active 65980 2001 Problem Psychophysiological insomnia F51.04 Active 241 01169 Problem Hypoglycemia E16.2 Active 902598745 Problem Vitamin D deficiency E55.9 Active 53186060 Problem History of breast cancer Z85.3 Active 3009005 02 Problem Postsurgical dumping syndrome K91.1 Active 80 152196 Problem 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 20 Active 279959067 Problem Daytime somnolence R40.0 Active 392577672021 ALLERGIES Allergen (clinical drug ingredient) Drug/Non Drug Allergy do cumented on EMR Reaction Allergy Type Onset Date Status ondansetron Zofran([facility] Code:[address]-59) tongue swelling Drug Aller gy Active piperacillin / tazobactam Zosyn([facility] Code:[address]-64) Hives Dr ug Allergy Active Cortisone heart racing/ high blood pressure Drug Allergy Active IV Contrast Dye Hives Drug Allergy Active ENCOUNTERS from 1977 to 2020-03-29 Encounter [facility] [address] [place] [address] Mar, Brown Horowitz Thigh shingles B02.9 IMMUNIZATIONS Vaccine Route Administration Date Status Vitamin B-12 1000mcg/1mL (Cyanocobalamin) SC Subcutaneous June 03, 2016 Administered MMR 0.5mL IM Intramuscular Apr 01, 2017 Administered SOCIAL HISTORY Tobacco Use: Social History Observation Description Date Details (start date - stop date) Never Smoker Sex Assigned At : Social History Observation Description Sex Assigned At Unknown Education: Question Answer Notes Level of Education: College Language: Question Answer Notes Languages spoken: German Mu-Ism: Question Answer Notes Mu-Ism 03 Uatsdin Sexual Hx: Question Answer Notes Had sex in the last 12 months (vaginal, oral, or anal)? Yes Have you ever had an STD? No Prevention Strategies discussed: Other with Men only Use protection? No Alcohol Screening: Question Answer Notes Did you have a drink containing alcohol in the past year? No Points 0 Interpretation Negative BMI Care Goal Follow-Up Question Answer Notes Above Normal BMI Follow-Up Giving encouragement to exercise Tobacco Use: Question Answer Notes Are you a: never smoker never smoker REASON FOR REFERRAL No Information VITAL SIGNS No information MEDICATIONS Medication SIG (Take, Route, Frequency, Duration) Notes Start Da te End Date Status Ferrous Sulfate 325 (65 Fe) MG 1 tablet Orally Once a day for 30 day(s) Dec, Active Syringe 2-3 ML 3 ML as directed for 30 day(s) Feb, Active Valacyclovir HCl 1 GM 1 tablet Orally tid prn for 7 day(s) Oct, Active Lancets - Test blood glucose. DX: E11. 9 On the side of a finger When symptomatic. E16.2 for 90 day(s) Apr, Active Ventolin HFA 108 (90 Base) MCG/ACT 2 puffs as needed I nhalation every 4 hrs for 30 day(s) May, Active Glucometer as directed check blood sugar when sympt omatic. E16.2 for 90 day(s) Apr, Active Fluticasone Propionate 50 MCG/ACT 1 spray in each nost ril Nasally Once a day as needed for 30 Days Sep, Not-Taking Blood Glucose Test - as directed In Vitro Daily a s needed for symptoms of hypoglycemia. E16.2 for 90 day(s) Apr, Active Vitamin D-3 25 MCG (1000 UT) 2 capsule Orally Once a day for 90 days Mar, Active Cyanocobalamin 1000 MCG/ML 1 ml intramuscularly every 2 weeks fo r 90 days Feb, Active Cyanocobalamin 1000 MCG/ML 1 ml intramuscularly Every 2 weeks fo r 30 Days Nov, Not-Taking Daily Multivitamin - 1 cap Orally Daily for 90 day(s) 31 2016 Active Ventolin HFA 108 (90 Base) MCG/ACT 2 puffs as needed I nhalation every 6 hrs for 30 days Sep, Not-Taking Misc. Devices - as directed Nov, Active Vitamin D2 50 MCG (2000 UT) 1 tablet Orally Once a day for 90 days Active Lancets - as directed On side of finge r Daily as needed for symptoms of hypoglycemia. 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 Medical History Adopted Medical History GERD s/p failed Rx Medical History TC score 40 % annual breast MRI recommen ded Surgical History Nini-n-Y gastric bypass 2014 Surgical History Cholecystectomy 2013 Surgical History Tubal ligation 2010 Surgical History Partial hysterectomy- states ovaries pre served 2012 Surgical History Right knee 03/24/2019 Surgical History Appendectomy 1995 Surgical History T & A Surgical History tubes in ears Surgical History Robotic assisted laparoscopic bilateral salpingo-oophorectomy 02/28/2020 Hospitalization History spinal Meningitis 1993 Goals Section No Information Health Concerns No Information MEDICAL EQUIPMENT No Information MENTAL STATUS No Information FUNCTIONAL STATUS No Information ASSESSMENTS Encounter Date Diagnosis Assessment Notes Treatment Notes Treatm ent Clinical Notes Mar, Thigh shingles (ICD-10 - B02.9) PLAN OF TREATMENT Medication Medication Name Sig Start Date Stop Date Valacyclovir HCl 1 GM 1 tablet Orally tid prn for 7 day(s) 2016 Vitamin D2 50 MCG (2000 UT) 1 tablet Orally Once a day for 90 da ys Vitamin D-3 25 MCG (1000 UT) 2 capsule Orally Once a day for 90 days Mar, Next Appt Details Provider Name:Brown Simpson Jhonny, 2020-04-11 09:30:00 AM, [address] [place] [address], [phone], Insurance Providers Payer Name Payer Address Payer Phone Insured Name Patient Relati onship to Insured Coverage Start Date Coverage End Date [facility] [address] [facility] [phone] VIVEK GAMEZ self
--- OUTSIDE RECORDS SUMMARY | 2020-04-10 12:25 | CCD ---
Author Author [facility] Organization [facility] ems Address Unknown Phone Unavailable Care Team Providers Care Corporate Associate Attorney Name Role Phone Brown Horowitz Unavailable PROBLEMS Type Condition ICD9-CM Code IEG00-ZV Code Onset Dates Condition S tatus SNOMED Code Notes Problem Insomnia, unspecified type G47.00 Active 22175 2001 Problem Psychophysiological insomnia F51.04 Active 241 03078 Problem Hypoglycemia E16.2 Active 182850352 Problem Vitamin D deficiency E55.9 Active 37814604 Problem History of breast cancer Z85.3 Active 4521963 02 Problem Postsurgical dumping syndrome K91.1 Active 80 691552 Problem 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 20 Active 697432340 Problem Daytime somnolence R40.0 Active 733346902091 ALLERGIES Allergen (clinical drug ingredient) Drug/Non Drug Allergy do cumented on EMR Reaction Allergy Type Onset Date Status ondansetron Zofran([facility] Code:[address]-89) tongue swelling Drug Aller gy Active piperacillin / tazobactam Zosyn([facility] Code:[address]-53) Hives Dr ug Allergy Active Cortisone heart racing/ high blood pressure Drug Allergy Active IV Contrast Dye Hives Drug Allergy Active ENCOUNTERS from 1977 to 2020-03-27 Encounter Location Date Provider Diagnosis [facility] Lisa [address] [place] [phone] 14 Mar, 2020 Brown Horowitz IMMUNIZATIONS Vaccine Route Administration Date Status Vitamin [...] College Language: Question Answer Notes Languages spoken: Montenegrin Latter-Day: Question Answer Notes Latter-Day 03 Restorationism Sexual Hx: Question Answer Notes Had sex [...] as directed for 30 day(s) Feb, Active Cyanocobalamin 1000 MCG/ML 1 ml intramuscularly every 2 weeks fo r 90 days Feb, Active Lancets - Test blood glucose. DX: [...] hypoglycemia. E16.2 for 90 day(s) Apr, Active Misc. Devices - as directed Nov, Active Vitamin D-3 25 MCG (1000 UT) [...] 6 hrs for 30 days Sep, Not-Taking Valacyclovir HCl 1 GM 1 tablet Orally tid prn for 7 day(s) Oct, Active Vitamin D2 50 MCG (2000 UT) 1 tablet Orally Once a day for 90 days Active Lancets - as directed On side of finge r Daily as needed for symptoms of hypoglycemia. E16.2 for 90 day(s) Apr, Active Vitamin D3 2000 UNIT 1 capsule Orally Once a day for 90 day(s) Dec, Not-Taking PROCEDURES No Information RESULTS No Results REASON FOR VISIT PA Vitamin D2 50mcg (2000unit) tablets MEDICAL (GENERAL) HISTORY Type Description Date Medical [...] bilateral salpingo-oophorectomy 02/28/2020 Hospitalization History spinal Meningitis 1994 Goals Section No Information Health Concerns No Information MEDICAL EQUIPMENT No Information MENTAL STATUS No Information FUNCTIONAL STATUS No Information ASSESSMENTS No Information PLAN OF TREATMENT Medication Medication Name Sig Start Date Stop Date Vitamin D-3 25 MCG (1000 UT) 2 capsule Orally Once a day for 90 days Mar, Vitamin D2 50 MCG (1999 UT) 1 tablet Orally Once a day for 90 da ys Next Appt Details Provider Name:Brown Barry, 2020-04-11 09:30:00 AM, [address] [place], [address], Insurance Providers Payer Name Payer Address Payer Phone Insured Name Patient Relati onship to Insured Coverage Start Date Coverage End Date [facility] [address] [facility] [phone] VIVEK GAMEZ self
--- OUTSIDE RECORDS SUMMARY | 2020-04-10 12:25 | CCD ---
Author Author Efrain Johnson Organization Unknown Address [address] [address] Phone Care Team Providers Care Airfield Operations Specialist Name Role Phone Jalyn Johnson PCP Allergies, Adverse Reactions, Alerts No Data in Section Problem List Concept Problem Description Status Start Date Created Date Resolv ed Date Snomed Code F43.11 Post-traumatic stress disorder, acute Active F41.9 Unspecified Anxiety Disorder Active 03/29/2020 Medications No Data in Section Social History Social History Element Description Concept Effective Date Smoking Status Unknown if ever smoked [id number] 57940444 Immunizations No Data in Section Vital Signs No Data in Section Procedures Date Concept Id Description Targeted Site Concept Targeted Site Concept Type 03/29/2020 11583-07 [facility]-Family and client 1 hr. CPT Patient has no history of implantable de vices Encounters Encounter Start Date End Date Encounter Type Description Diagnosis Di agnosis Desc Location Author First Name Author Last Name Npid Taxonomy Cod e Taxonomy Desc Phone Number Location Addr1 Location Addr2 Location [facility] Location [facility] Location [facility] [id number] 03/29/2020 03/29/2020 [address]-81 [facility]Family and client 1 hr. F43.11 Post-traumatic stress disorder, acute [facility] Alex Jalyn [id number] [id number] Mental Health [phone] 80 [facility] [address] [facility] [address] Plan of Treatment No Data in Section Lab Results No Data in Section Instructions No Data in Section Insurance Providers Insurance Id Policy Effective Date Policy Thru Date Company N ov[employer]io [id number] 2017 [employer] Managed Pasha crenshaw
--- OUTSIDE RECORDS SUMMARY | 2020-04-10 12:25 | CCD ---
Author Author [facility] em[facility] Organization [facility] ems Address Unknown Phone Unavailable Care Team Providers Care Top Knitter Name Role Phone Brown Horowitz Unavailable PROBLEMS Type Condition ICD9-CM Code NFR30-SN Code Onset Dates Condition S tatus SNOMED Code Notes Problem Insomnia, unspecified type G47.00 Active 50418 2001 Problem Psychophysiological insomnia F51.04 Active 241 57894 Problem Hypoglycemia E16.2 Active 540442653 Problem Vitamin D deficiency E55.9 Active 65873846 Problem History of breast cancer Z85.3 Active 5662517 02 Problem Postsurgical dumping syndrome K91.1 Active 80 331633 Problem History of Nini-en-Y gastric bypass Z98.84 Acti ve 134408305 Problem Vitamin B12 deficiency E53.8 Active 955881821 Problem Pain in right knee M25.561 Active 07050185 Problem Other chronic pain G89.29 Active 80617415 Problem 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 20 Active 772512202 Problem Daytime somnolence R40.0 Active 903122300317 ALLERGIES Allergen (clinical drug ingredient) Drug/Non Drug Allergy do cumented on EMR Reaction Allergy Type Onset Date Status ondansetron Zofran([facility] Code:[address]-51) tongue swelling Drug Aller gy Active piperacillin / tazobactam Zosyn([facility] Code:[address]-92) Hives Dr amadeo Allergy Active Cortisone heart racing/ high blood pressure Drug Allergy Active IV Contrast Dye Hives Drug Allergy Active ENCOUNTERS from 1977 to 2020-04-01 Encounter [facility] Date [facility] [address] [place] [address] Mar, Brown Horowitz Pre-op exam Z01.818 ; Hypertrophy of loreta ast N62 and Vitamin D deficiency E55.9 IMMUNIZATIONS Vaccine Route Administration Date Status Vitamin [...] College Language: Question Answer Notes Languages spoken: Bengali Zoroastrian: Question Answer Notes Zoroastrian 03 Church Sexual Hx: Question Answer Notes Had sex [...] REASON FOR REFERRAL No Information VITAL SIGNS Weight 174 lbs Mar, Height 63 in Mar, BMI 30.82 kg/m2 Mar, Heart Rate 72 /min Mar, Respiratory Rate 16 /min Mar, Temperature 98.0 degrees Fahrenheit Mar, Oximetry 98% Mar, Blood pressure systolic 116 mm Hg Mar, Blood pressure diastolic 70 mm Hg Mar, MEDICATIONS Medication SIG (Take, Route, Frequency, Duration) [...] 1 cap Orally Daily for 90 day(s) 2016 Active Ventolin HFA 108 (90 Base) [...] day for 90 day(s) Dec, Not-Taking PROCEDURES from 1977 to 2020-04-01 Procedure Date Ordered Result Body Site ELECTROCARDIOGRAM, COMPLETE EKG 2020-03-22 N/A RESULTS No Results REASON FOR VISIT BILATERAL MASTOPEXY WITH SMALL BREAST REDUCTION 04/04/20 Dr Veliz at [facility] MEDICAL (GENERAL) HISTORY Type Description Date Medical [...] Treatment Notes Treatm ent Clinical Notes Mar, Pre-op exam (ICD-10 - Z01.818) Preop for maxectomy. No history of issues with anaesthesia. Cardiovascular: No chest pain walking up flight of stairs. Able to perform 4 METs without symptoms. EKG performed today. Sinus rhythm 61, normal GA intreval, normal R wave progression, no t wave abnormality, similar to EKG 07/15/2017. Respiratory: History of using rescue inhaler. Has not used for several months. Renal: No history of chronic kidney disease, chronic kidney disease. Pysch: PHQ-2 0 points. Medications: Does not take baby aspirin. Recommend to continue medications. Tests/ Labs: BMP and CBC ordered per surgeon. Reviewed results, no anemia, normal WBC, normal kidney function, EKG noted above. Patient has been optimized for surgery at this time. Mar, Hypertrophy of breast (ICD-10 - N62) See preop exam. Mar, Vitamin D deficiency (ICD-10 - E55.9) Refill of vitamin D sent. PLAN OF TREATMENT Medication Medication Name Sig Start Date Stop Date Valacyclovir HCl 1 GM 1 tablet Orally tid prn for 7 day(s) 31 Au g, 2016 Vitamin D2 50 MCG (2000 UT) 1 tablet Orally Once a day for 90 da ys Vitamin D-3 25 MCG (1000 UT) 2 capsule Orally Once a day for 90 days Mar, Treatment Notes Assessment Notes Clinical Notes Pre-op exam Preop for maxectomy. No history of issues with anaesthesia.Cardiovascular: No chest pain walking up flight of stairs. Able to perform 4 METs without symptoms.EKG performed today. Sinus rhythm 61, normal GA intreval, normal R wave progression, no t wave abnormality, similar to EKG 07/15/2017.Respiratory: History of using rescue inhaler. Has not used for several months.Renal: No history of chronic kidney disease, chronic kidney disease.Pysch: PHQ-2 0 points.Medications: Does not take baby aspirin. Recommend to continue medications.Tests/ Labs: BMP and CBC ordered per surgeon. Reviewed results, no anemia, normal WBC, normal kidney function, EKG noted above.Patient has been optimized for surgery at this time. Hypertrophy of breast See preop exam. Vitamin D deficiency Refill of vitamin D sent. Treatment Notes Test Name Order Date CBC with Differential 2020-04-01 Basic Metabolic Profile (BMP) 2020-04-01 Next Appt Details prn Reason: Provider Name:Brown Barry, 2020-04-11 09:30:00 AM, [address] [place], [address], Insurance Providers Payer Name Payer Address Payer Phone Insured Name Patient Relati onship to Insured Coverage Start Date Coverage End Date [facility] [address] [facility] [address] VIVEK GAMEZ self
--- OUTSIDE RECORDS SUMMARY | 2020-04-10 12:25 | CCD ---
Author Author [facility] em[facility] Organization [facility] ems Address Unknown Phone Unavailable Care Team Providers Care Senior Information Developer Name Role Phone Brown Horowitz Unavailable PROBLEMS Type Condition ICD9-CM Code PMX51-RL Code Onset Dates Condition S tatus SNOMED Code Notes Problem Insomnia, unspecified type G47.00 Active 76943 2001 Problem Psychophysiological insomnia F51.04 Active 241 50714 Problem Hypoglycemia E16.2 Active 389910720 Problem Vitamin D deficiency E55.9 Active 11930827 Problem History of breast cancer Z85.3 Active 2509111 02 Problem Postsurgical dumping syndrome K91.1 Active 80 066302 Problem History of Nini-en-Y gastric bypass Z98.84 Acti ve 147240990 Problem Vitamin B12 deficiency E53.8 Active 027827503 Problem Pain in right knee M25.561 Active 54890993 Problem Other chronic pain G89.29 Active 86913209 Problem Varicose veins of left lower extremity with pain I 83.812 Active 920244777 Problem Abnormal echocardiogram R93.1 Active 64696908 0 Problem Abdominal pannus E65 Active 2576552815223 Problem Blood in stool K92.1 Active 005278164311729 Problem 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 20 Active 352148640 Problem Daytime somnolence R40.0 Active 060815323012 ALLERGIES Allergen (clinical drug ingredient) Drug/Non Drug Allergy do cumented on EMR Reaction Allergy Type Onset Date Status ondansetron Zofran([facility] Code:[address]-37) tongue swelling Drug Aller gy Active piperacillin / tazobactam Zosyn([facility] Code:[address]-87) Hives Dr ug Allergy Active Cortisone heart racing/ high blood pressure Drug Allergy Active IV Contrast Dye Hives Drug Allergy Active ENCOUNTERS from 1977 to 2020-04-01 Encounter [facility] [address] [place] [address] Mar, Brown Horowitz IMMUNIZATIONS Vaccine Route Administration Date [...] College Language: Question Answer Notes Languages spoken: Georgian Quaker: Question Answer Notes Quaker 03 Synagogue Sexual Hx: Question Answer Notes Had sex [...] Information RESULTS No Results REASON FOR VISIT Lock Note MEDICAL (GENERAL) HISTORY Type Description Date Medical [...] days Mar, Next Appt Details Provider Name:Brown Barry, 2020-04-11 09:30:00 AM, [address] [place], [address], Insurance Providers Payer Name Payer Address Payer Phone Insured Name Patient Relati onship to Insured Coverage Start Date Coverage End Date [facility] COMMUNITY PLAN [facility] [address] [facility] [phone] VIVEK GAMEZ self
--- OUTSIDE RECORDS SUMMARY | 2020-04-10 12:25 | CCD ---
Author Author Efrain Johnson Organization Unknown Address [address] [address] Phone Care Team Providers Care Spool Salvager Name Role Phone Alex, Jalyn PCP Allergies, Adverse Reactions, Alerts No Data in Section Problem List Concept Problem Description Status Start Date Created Date Resolv ed Date Snomed Code F43.11 Post-traumatic stress disorder, acute Active F41.9 Unspecified Anxiety Disorder Active 03/16/2020 Medications No Data in Section Social History Social History Element Description Concept Effective Date Smoking Status Unknown if ever smoked [id number] 03749034 Immunizations No Data in Section Vital Signs No Data in Section Procedures Date Concept Id Description Targeted Site Concept Targeted Site Concept Type 03/16/2020 65072-55 [facility]-Family and client 1 hr. CPT Patient has no history of implantable de vices Encounters Encounter Start Date End Date Encounter Type Description Diagnosis Di agnosis Desc Location Author First Name Author Last Name Npid Taxonomy Cod e Taxonomy Desc Phone Number Location Addr1 Location Addr2 Location [facility] Location [facility] Location [facility] [id number] 03/16/2020 03/16/2020 31163-54 [facility]-Family and client 1 hr. F43.11 Post-traumatic stress disorder, acute [facility] Alex Jalyn [id number] Mental Health [id number] [address] [place], [place] 1 [facility] [address] Plan of Treatment No Data in Section Lab Results No Data in Section Instructions No Data in Section Insurance Providers Insurance Id Policy Effective Date Policy Thru Date Company N [employer] [id number] 2017 [employer] Man[employer] MBetina crenshaw
--- OUTSIDE RECORDS SUMMARY | 2020-04-10 12:25 | CCD ---
Author Author Efrain Johnson Organization Unknown Address [address] [address] Phone Care Team Providers Care Umbrella Cutter Name Role Phone Alex Jalyn PCP Allergies, Adverse Reactions, Alerts No Data in Section Problem List Concept Problem Description Status Start Date Created Date Resolv ed Date Snomed Code F43.11 Post-traumatic stress disorder, acute Active F41.9 Unspecified Anxiety Disorder Active 04/06/2020 Medications No Data in Section Social History Social History Element Description Concept Effective Date Smoking Status Unknown if ever smoked [id number] 06750896 Immunizations No Data in Section Vital Signs No Data in Section Procedures Date Concept Id Description Targeted Site Concept Targeted Site Concept Type 04/06/2020 55767-21 [facility] 30" Psychotherapy CPT Patient has no history of implantable de vices Encounters Encounter Start Date End Date Encounter Type Description Diagnosis Di agnosis Desc Location Author First Name Author Last Name Npid Taxonomy Cod e Taxonomy Desc Phone Number Location Addr1 Location Addr2 Location [place] Location [facility] Location [facility] 754389 04/06/2020 04/06/2020 [address]290-54 TEMPM[facility]CTelemed 30" Psychothe rapy F43.11 Post-traumatic stress disorder, acute [facility] Alex Gunderson [id number] Mental Health [id number] [address] [address] Plan of Treatment No Data in Section Lab Results No Data in Section Instructions No Data in Section Insurance Providers Insurance Id Policy Effective Date Policy Thru Date Company N [employer] [id number] 2017 [employer] Man[employer] MBetina crenshaw
--- OUTSIDE RECORDS SUMMARY | 2020-04-10 12:26 | CCD ---
Author Author [facility] ems Organization [facility] ems Address Unknown Phone Unavailable Care Team Providers Care Internet Marketing Director Name Role Phone Halley Ardon Unavailable PROBLEMS Type Condition ICD9-CM Code QRY38-FE Code Onset Dates Condition S tatus SNOMED Code Notes Problem Insomnia, unspecified type G47.00 Active 12577 2001 Problem Psychophysiological insomnia F51.04 Active 241 02452 Problem Hypoglycemia E16.2 Active 913520567 Problem Vitamin D deficiency E55.9 Active 99754467 Problem History of breast cancer Z85.3 Active 5702324 02 Problem Postsurgical dumping syndrome K91.1 Active 80 414988 Problem History of Nini-en-Y gastric bypass Z98.84 Acti ve 821811799 Problem Vitamin B12 deficiency E53.8 Active 282820646 Problem Pain in right knee M25.561 Active 10902080 Problem Other chronic pain G89.29 Active 55165703 Problem 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 20 Active 459574802 Problem Daytime somnolence R40.0 Active 582240302484 ALLERGIES Allergen (clinical drug ingredient) Drug/Non Drug Allergy do cumented on EMR Reaction Allergy Type Onset Date Status ondansetron Zofran([facility] Code:[address]-98) tongue swelling Drug Aller gy Active piperacillin / tazobactam Zosyn([facility] Code:[address]-62) Hives Dr amadeo Allergy Active Cortisone heart racing/ high blood pressure Drug Allergy Active IV Contrast Dye Hives Drug Allergy Active ENCOUNTERS from 1977 to 2020-02-22 Encounter Location Date Provider Diagnosis [facility] [address] [place] [address] Feb, Halley Ardon At risk for breast c ancer Z91.89 IMMUNIZATIONS Vaccine Route Administration Date Status Vitamin [...] College Language: Question Answer Notes Languages spoken: Luxembourger Muslim: Question Answer Notes Muslim 03 Hinduism Sexual Hx: Question Answer Notes Had sex [...] Notes Start Da te End Date Status TraZODone HCl 50 MG 1 tablet at bedtime as neede d Orally Once a day for 30 day(s) Apr, Not-Taking Flexeril 10 mg 30 10 mg one tablet orally every 8 hours prn pain Active Doxepin HCl 10 MG 1 capsule at bedtime Orally Once a day for 30 day(s) May, Not-Taking Vitamin D3 2000 UNIT 1 capsule Orally Once a day for 90 day(s) Dec, Not-Taking Glucometer as directed for 30 day(s) Sep, Not-Taking Daily Multivitamin - 1 cap Orally Daily for 90 day(s) 31 J 2016 Active Acarbose 50 MG 1 tab Orally tid for 30 days Sep, Not-Taking Ventolin HFA 108 (90 Base) MCG/ACT 2 puffs as needed I nhalation every 6 hrs for 30 days Sep, Not-Taking Blood Glucose Test - as directed k91.1 In Vitro Daily for 30 day s Sep, Not-Taking Ferrous Sulfate 325 (65 Fe) MG 1 tablet Orally Once a day for 30 day(s) Dec, Not-Taking Lancets - Test blood glucose. DX: E11. 9 On the side of a finger When symptomatic. E16.2 for 90 day(s) Apr, Active Cyanocobalamin 1000 MCG/ML 1 ml intramuscularly every 2 weeks fo r 90 days Feb, Active Blood Glucose Test - as directed In Vitro Daily a s needed for symptoms of hypoglycemia. E16.2 for 90 day(s) Apr, Active Diflucan 150 MG 1 tablet Orally once for 1 days Jun, 20 Not-Taking Acetaminophen 500 MG 2 capsule as needed Orally every 8 hrs for 30 day(s) Jun, Not-Taking Misc. Devices - as directed Nov, Active Vitamin D2 50 MCG (2000 UT) 1 tablet Orally Once a day for 30 day(s) Active Syringe 2-3 ML 3 ML as directed for 30 day(s) Feb, Active Vitamin D3 26120 UNIT as directed Orally Weekly for 30 day(s) May, Active Valacyclovir HCl 1 GM 1 tablet Orally tid for 7 day(s) Oct, Active Blood Glucose Test - as directed In Vitro When symptomatic. E16.2 for 90 day(s) Apr, Not-Taking Commode Bedside - as directed for 30 day(s) Nov, Active Glucometer as directed check blood sugar when sympt omatic. E16.2 for 90 day(s) Apr, Active Ventolin HFA 108 (90 Base) MCG/ACT 2 puffs as needed I nhalation every 4 hrs for 30 day(s) May, Active Fluticasone Propionate 50 MCG/ACT 1 spray in each nost ril Nasally Once a day as needed for 30 Days Sep, Not-Taking Cyanocobalamin 1000 MCG/ML 1 ml intramuscularly Every 2 weeks fo r 30 Days Nov, Not-Taking Lancets - as directed On side of finge r Daily as needed for symptoms of hypoglycemia. E16.2 for 90 day(s) Apr, Active PROCEDURES No Information RESULTS No Results REASON FOR VISIT lalbs MEDICAL (GENERAL) HISTORY Type Description Date Medical [...] & A Surgical History tubes in ears Hospitalization History spinal Meningitis 1993 Goals Section No Information Health Concerns No Information MEDICAL EQUIPMENT No Information MENTAL STATUS No Information FUNCTIONAL STATUS No Information ASSESSMENTS Encounter Date Diagnosis Assessment Notes Treatment Notes Treatm ent Clinical Notes Feb, At risk for breast cancer (ICD-10 - Z91.89) PLAN OF TREATMENT Treatment Notes Test Name Order Date CREATININE 2020-02-22 BLOOD UREA NITROGEN (BUN) 2020-02-22 Next Appt Details Provider Name:Brown Barry 2020-02-28 07:30:00 AM, [address] [place] [address], [phone], Provider Name:Brown Barry 2020-03-15 11:40:00 AM, [address] [place] [address], [phone], Provider Name:Brown Barry 2020-04-11 09:30:00 AM, [address] [place] [address], [phone], Insurance Providers Payer Name Payer Address Payer Phone Insured Name Patient Relati onship to Insured Coverage Start Date Coverage End Date [facility] COMM[facility] PLAN [facility] [address] [facility] [address] VIVEK GAMEZ self
--- OUTSIDE RECORDS SUMMARY | 2020-04-10 12:26 | CCD ---
Author Author [facility] Organization [facility] Address Unknown Phone Unavailable Care Team Providers Care Computational Sciences Professor Name Role Phone Brown Barry Unavailable PROBLEMS Type Condition ICD9-CM Code TBI62-SN Code Onset Dates Condition S tatus SNOMED Code Notes Problem Insomnia, unspecified type G47.00 Active 23225 2001 Problem Psychophysiological insomnia F51.04 Active 241 34253 Problem Hypoglycemia E16.2 Active 157580537 Problem Vitamin D deficiency E55.9 Active 70475604 Problem History of breast cancer Z85.3 Active 3085075 02 Problem Postsurgical dumping syndrome K91.1 Active 80 747310 Problem History of Nini-en-Y gastric bypass Z98.84 Acti ve 720434619 Problem Vitamin B12 deficiency E53.8 Active 173082443 Problem Pain in right knee M25.561 Active 37044630 Problem Other chronic pain G89.29 Active 12981763 Problem Varicose veins of left lower extremity with pain I 83.812 Active 002182583 Problem Abnormal echocardiogram R93.1 Active 71901175 0 Problem Abdominal pannus E65 Active 1638522094895 Problem Blood in stool K92.1 Active 815315121704616 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 20 Active 936823603 Problem Daytime somnolence R40.0 Active 031502498297 ALLERGIES Allergen (clinical drug ingredient) Drug/Non Drug Allergy do cumented on EMR Reaction Allergy Type Onset Date Status ondansetron Zofran([facility] Code:[address]-36) tongue swelling Drug Aller gy Active piperacillin / tazobactam Zosyn([facility] Code:[address]-16) Hives Dr ug Allergy Active Cortisone heart racing/ high blood pressure Drug Allergy Active IV Contrast Dye Hives Drug Allergy Active ENCOUNTERS from 1977 to 2020-02-18 Encounter Location Date Provider Diagnosis [facility] [place] [address] Feb, Brown Barry Ovarian cyst N83.209 IMMUNIZATIONS Vaccine Route Administration Date Status Vitamin [...] College Language: Question Answer Notes Languages spoken: Indian Baptist: Question Answer Notes Baptist 03 Nondenominational Sexual Hx: Question Answer Notes Had sex [...] FOR REFERRAL No Information VITAL SIGNS Weight 173 lbs Feb, Weight-kg 78.47 kg Feb, Height 63 in Feb, BMI 30.64 kg/m2 Feb, Blood pressure systolic 122 mm Hg Feb, Blood pressure diastolic 82 mm Hg Feb, MEDICATIONS Medication SIG (Take, Route, Frequency, Duration) Notes Start Da te End Date Status Vitamin D3 2000 UNIT 1 capsule Orally Once a day for 90 day(s) Dec, Not-Taking Daily Multivitamin - 1 cap Orally Daily for 90 day(s) 2016 Active Blood Glucose Test - as directed k91.1 In Vitro Daily for 30 day s Sep, Not-Taking Fluticasone Propionate 50 MCG/ACT 1 spray in each nost ril Nasally Once a day as needed for 30 Days Sep, Not-Taking Flexeril 10 mg 30 10 mg one tablet orally every 8 hours prn pain Active Glucometer as directed check blood sugar when sympt omatic. E16.2 for 90 day(s) Apr, Active Acetaminophen 500 MG 2 capsule as needed Orally every 8 hrs for 30 day(s) Jun, Not-Taking Cyanocobalamin 1000 MCG/ML 1 ml intramuscularly Every 2 weeks fo r 30 Days Nov, Not-Taking Ferrous Sulfate 325 (65 Fe) MG 1 tablet Orally Once a day for 30 day(s) Dec, Not-Taking Ventolin HFA 108 (90 Base) MCG/ACT 2 puffs as needed I nhalation every 4 hrs for 30 day(s) May, Active Doxepin HCl 10 MG 1 capsule at bedtime Orally Once a day for 30 day(s) May, Not-Taking TraZODone HCl 50 MG 1 tablet at bedtime as neede d Orally Once a day for 30 day(s) Apr, Not-Taking Vitamin D2 50 MCG (2000 UT) 1 tablet Orally Once a day for 30 day(s) Active Acarbose 50 MG 1 tab Orally tid for 30 days Sep, Not-Taking Ventolin HFA 108 (90 Base) MCG/ACT 2 puffs as needed I nhalation every 6 hrs for 30 days Sep, Not-Taking Blood Glucose Test - as directed In Vitro When symptomatic. E16.2 for 90 day(s) Apr, Not-Taking Glucometer as directed for 30 day(s) Sep, Not-Taking Vitamin D3 45483 UNIT as directed Orally Weekly for 30 day(s) May, Active Lancets - as directed On side of finge r Daily as needed for symptoms of hypoglycemia. E16.2 for 90 day(s) Apr, Active Lancets - Test blood glucose. DX: E11. 9 On the side of a finger When symptomatic. E16.2 for 90 day(s) Apr, Active Syringe 2-3 ML 3 ML as directed for 30 day(s) Feb, Active Diflucan 150 MG 1 tablet Orally once for 1 days Jun, 20 20 Not-Taking Commode Bedside - as directed for 30 day(s) Nov, Active Misc. Devices - as directed Nov, Active Cyanocobalamin 1000 MCG/ML 1 ml intramuscularly every 2 weeks fo r 90 days Feb, Active Blood Glucose Test - as directed In Vitro Daily a s needed for symptoms of hypoglycemia. E16.2 for 90 day(s) Apr, Active Valacyclovir HCl 1 GM 1 tablet Orally tid for 7 day(s) Oct, Active PROCEDURES No Information RESULTS No Results REASON FOR VISIT SURGICAL CONSULT MEDICAL (GENERAL) HISTORY Type Description Date Medical [...] Treatment Notes Treatm ent Clinical Notes Feb, Ovarian cyst (ICD-10 - N83.209) PLAN OF TREATMENT Next Appt Details Provider Name:Brown Barry 2020-02-21 03:40:00 PM, [address] [place] [address], [phone], Provider Name:Brown Barry 2020-02-28 07:30:00 AM, [address] [place] [address], [phone], Provider Name:Brown Barry 2020-03-15 11:40:00 AM, [address] [place] [address], [phone], Provider Name:Brown Barry 2020-04-11 09:30:00 AM, [address] [place] [address], [phone], Insurance Providers Payer Name Payer Address Payer Phone Insured Name Patient Relati onship to Insured Coverage Start Date Coverage End Date [facility] [address] [facility] [address] [phone] VIVEK GAMEZ self
--- OUTSIDE RECORDS SUMMARY | 2020-04-10 12:26 | CCD | Continuity of Care Document ---
Author Author Efrain GONZALEZ MD Organization Unknown Address [address] [place] [address] Phone [phone] Problems Description No Information Available Social History Type Date Description Comments Sex Unknown ETOH Use Rarely consumes alcohol Tobacco Use Start: Unknown Denies Smoking Allergies, Adverse Reactions, Alerts Active Allergies Reaction Severity Comments Date Zofran 11/14/2016 Cortizone-10 11/14/2016 IVP Dye 11/14/2016 Medications Active Medications SIG Qnty Indications Ordering Provide r Date Tramadol HCL 50mg Tablets 1 every q8 or as needed pain 30tabs Elvin Gonzalez MD 0 Medrol 4mg Tablets dose martir, take as directed on sheet 1tabs Elvin Gonzalez MD 020 Percocet 5-325mg Tablets 1-2 tabs by mouth every 4 hours as needed for pain after surgery(Please DO Not Fill Until 03/23/19) 20tabs Elvin Gonzalez MD 0 Vitamin B-12 Natural 500mcg Tablets Unknown Vitamin D High Potency 1000Unit Ca psules twice daily Unknown Immunizations Description No Information Available Vital Signs Date Vital Result Comment 02/11/2019 10:07am Height 64 inches 5'4" Weight 154.00 lb BMI (Body Mass Index) 26.4 kg/m2 12/09/2016 9:18am Body Temperature 98.0 F Results Description No Information Available Procedures Date Code Description Status 01/14/2020 23487 X-Ray Knee Complete W/Obliques & Tunnel And/Or Standing Views Completed Medical Devices Description No Information Available Encounters Type Date Location Provider Dx Diagnosis Office Visit 01/14/2020 10:00a Nati Gonzalez MD M23. 8x1 Other internal derangements of right knee Assessments Date Code Description Provider 01/14/2020 M23.8x1 Other internal derangements of r ight knee Elvin Gonzalez MD Plan of Treatment 01/14/2020 - Elvin Gonzalez MD* M23.8x1 Other internal derangements of right knee* New Xrays:* MRI RT Knee, Scheduled: 01/17/20 * Follow up:* after MRI results with ANM Functional Status Description No Information Available Mental Status Description No Information Available Referrals Description No Information Available
--- OUTSIDE RECORDS SUMMARY | 2020-04-10 12:26 | CCD ---
Author Author [facility] Organization [facility] Address Unknown Phone Unavailable Care Team Providers Care Toll Gate Keeper Name Role Phone Halley Ardon Unavailable PROBLEMS Type Condition ICD9-CM Code RTA60-RT Code Onset Dates Condition S tatus SNOMED Code Notes Problem Insomnia, unspecified type G47.00 Active 86577 2001 Problem Psychophysiological insomnia F51.04 Active 241 60229 Problem Hypoglycemia E16.2 Active 471769052 Problem Vitamin D deficiency E55.9 Active 83928308 Problem History of breast cancer Z85.3 Active 2085337 02 Problem Postsurgical dumping syndrome K91.1 Active 80 788267 Problem History of Nini-en-Y gastric bypass Z98.84 Acti ve 559648386 Problem Vitamin B12 deficiency E53.8 Active 836161147 Problem Pain in right knee M25.561 Active 41211567 Problem Other chronic pain G89.29 Active 70111558 Problem Varicose veins of left lower extremity with pain I 83.812 Active 059084884 Problem Abnormal echocardiogram R93.1 Active 04434345 0 Problem Abdominal pannus E65 Active 2698391936559 Problem Blood in stool K92.1 Active 755176817338352 Problem 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 20 Active 297517801 Problem Daytime somnolence R40.0 Active 052772490134 ALLERGIES Allergen (clinical drug ingredient) Drug/Non Drug Allergy do cumented on EMR Reaction Allergy Type Onset Date Status ondansetron Zofran([facility] Code:[address]-15) tongue swelling Drug Aller gy Active piperacillin / tazobactam Zosyn([facility] Code:[address]-56) Hives Dr amadeo Allergy Active Cortisone heart racing/ high blood pressure Drug Allergy Active IV Contrast Dye Hives Drug Allergy Active ENCOUNTERS from 1977 to 2020-02-15 Encounter Location Date Provider Diagnosis [facility] [address] [place] [phone] Feb, Halley Duglas IMMUNIZATIONS Vaccine Route Administration Date Status Vitamin [...] College Language: Question Answer Notes Languages spoken: Upper Sorbian Holiness: Question Answer Notes Holiness 03 Denominational Sexual Hx: Question Answer Notes Had sex [...] Daily for 90 day(s) 31 2016 Active Blood Glucose Test - as [...] for 30 day(s) Sep, Not-Taking Vitamin D3 54093 UNIT as directed Orally Weekly for 30 [...] once for 1 days Jun, 20 Not-Taking Commode Bedside - as directed [...] Information RESULTS No Results REASON FOR VISIT FYI only MEDICAL (GENERAL) HISTORY Type Description Date Medical [...] Information ASSESSMENTS No Information PLAN OF TREATMENT Next Appt Details Provider Name:Brown Barry 2020-02-21 03:40:00 PM, [address] [place] [address], [phone], Provider Name:Brown Barry 2020-02-28 07:30:00 AM, [address] [place] [address], [phone], Provider Name:Brown Barry 2020-03-15 11:40:00 AM, [address] [place] [address], [phone], Provider Name:Brown Barry 2020-04-11 09:30:00 AM, [address] [place] [address], [phone], Insurance Providers Payer Name Payer Address Payer Phone Insured Name Patient Relati onship to Insured Coverage Start Date Coverage End Date [facility] COMMUNITY PLAN [facility] [address] [facility] [phone] VIVEK GAMEZ self
--- OUTSIDE RECORDS SUMMARY | 2020-04-10 12:26 | CCD ---
Author Author Efrain Johnson Organization Unknown Address [address] [place] [address] Phone Care Team Providers Care Skin Pass Operator Name Role Phone Jalyn Johnson PCP Allergies, Adverse Reactions, Alerts No Data in Section Problem List Concept Problem Description Status Start Date Created Date Resolv ed Date Snomed Code F43.11 Post-traumatic stress disorder, acute Active F41.9 Unspecified Anxiety Disorder Active 01/13/2020 Medications No Data in Section Social History Social History Element Description Concept Effective Date Smoking Status Unknown if ever smoked [id number] 70037441 Immunizations No Data in Section Vital Signs No Data in Section Procedures Date Concept Id Description Targeted Site Concept Targeted Site Concept Type 01/13/2020 54323 Psychotherapy - Family & Client 1 hour CPT Patient has no history of implantable de vices Encounters Encounter Start Date End Date Encounter Type Description Diagnosis Di agnosis Desc Location Author First Name Author Last Name Npid Taxonomy Cod e Taxonomy Desc Phone Number Location Addr1 Location Addr2 Location [facility] Location [facility] Location [facility] [id number] 01/13/2020 01/13/2020 34899 Psychotherapy - Family & Client 1 hour F43.11 Post-traumatic stress disorder, acute [facility] Alex Gunderson [id number] [id number] Mental Health [phone] [address] [place] [address] [address] [facility] [address] Plan of Treatment No Data in Section Lab Results No Data in Section Instructions No Data in Section Insurance Providers Insurance Id Policy Effective Date Policy Thru Date Company N ovidio [id number] 2017 [employer] Managed Pasha crenshaw
--- OUTSIDE RECORDS SUMMARY | 2020-04-10 12:26 | CCD ---
Author Author [facility] Organization [facility] Address Unknown Phone Unavailable Care Team Providers Care Cnc Programmer Name Role Phone Brown Barry Unavailable PROBLEMS Type Condition ICD9-CM Code HJF05-RO Code Onset Dates Condition S tatus SNOMED Code Notes Problem Insomnia, unspecified type G47.00 Active 68247 2001 Problem Psychophysiological insomnia F51.04 Active 241 26028 Problem Hypoglycemia E16.2 Active 848818671 Problem Vitamin D deficiency E55.9 Active 40962788 Problem History of breast cancer Z85.3 Active 2840399 02 Problem Postsurgical dumping syndrome K91.1 Active 80 624306 Problem History of Nini-en-Y gastric bypass Z98.84 Acti ve 661601954 Problem Vitamin B12 deficiency E53.8 Active 632372308 Problem Pain in right knee M25.561 Active 93043817 Problem Other chronic pain G89.29 Active 93353925 Problem Varicose veins of left lower extremity with pain I 83.812 Active 008719170 Problem Abnormal echocardiogram R93.1 Active 08293620 0 Problem Abdominal pannus E65 Active 9378537219286 Problem Blood in stool K92.1 Active 260899655254940 Problem 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 20 Active 423943076 Problem Daytime somnolence R40.0 Active 297131667490 ALLERGIES Allergen (clinical drug ingredient) Drug/Non Drug Allergy do cumented on EMR Reaction Allergy Type Onset Date Status ondansetron Zofran([facility] Code:[address]-95) tongue swelling Drug Aller gy Active piperacillin / tazobactam Zosyn([facility] Code:[address]-39) Hives Dr ug Allergy Active Cortisone heart racing/ high blood pressure Drug Allergy Active IV Contrast Dye Hives Drug Allergy Active ENCOUNTERS from 1977 to 2020-02-11 Encounter Location Date Provider Diagnosis [facility] [address] [place] [phone] Feb, Brown Barry IMMUNIZATIONS Vaccine Route Administration Date Status Vitamin [...] College Language: Question Answer Notes Languages spoken: Korean Anabaptism: Question Answer Notes Anabaptism 03 Holiness Sexual Hx: Question Answer Notes Had sex [...] for 30 day(s) Sep, Not-Taking Vitamin D3 52246 UNIT as directed Orally Weekly for 30 [...] Information RESULTS No Results REASON FOR VISIT AUTHORIZATION MEDICAL (GENERAL) HISTORY Type Description Date Medical [...] Details Provider Name:Brown Barry 2020-02-21 03:40:00 PM, [address] [place] [address], [phone], Provider Name:Brown Barry 2020-02-28 07:30:00 AM, [address] [place] [address], [phone], Provider Name:Brown Barry 2020-03-15 11:40:00 AM, [address] [place] [address], [phone], Provider Name:Brown Barry 2020-04-11 09:30:00 AM, [address] [place] [address], [phone], Insurance Providers Payer Name Payer Address Payer Phone Insured Name Patient Relati onship to Insured Coverage Start Date Coverage End Date [facility] COMMUNITY PLAN [facility] [address] [facility] [phone] VIVEK GAMEZ self
--- OUTSIDE RECORDS SUMMARY | 2020-04-10 12:26 | CCD ---
Author Author Efrain Johnson Organization Unknown Address [address] [address] Phone Care Team Providers Care Intervention Analyst Name Role Phone Alex Jalyn PCP Allergies, Adverse Reactions, Alerts No Data in Section Problem List Concept Problem Description Status Start Date Created Date Resolv ed Date Snomed Code F43.11 Post-traumatic stress disorder, acute Active F41.9 Unspecified Anxiety Disorder Active 02/24/2020 Medications No Data in Section Social History Social History Element Description Concept Effective Date Smoking Status Unknown if ever smoked [id number] 45025128 Immunizations No Data in Section Vital Signs No Data in Section Procedures Date Concept Id Description Targeted Site Concept Targeted Site Concept Type 02/24/2020 60881-19 [facility]Family and client 1 hr. CPT Patient has no history of implantable de vices Encounters Encounter Start Date End Date Encounter Type Description Diagnosis Di agnosis Desc Location Author First Name Author Last Name Npid Taxonomy Cod e Taxonomy Desc Phone Number Location Addr1 Location Addr2 Location [facility] Location [facility] Location [facility] [id number] 02/24/2020 02/24/2020 00251-36 [facility]Family and client 1 hr. F43.11 Post-traumatic stress disorder, acute [facility] Alex Jalyn [id number] Mental Health [id number] [address] [address] Plan of Treatment No Data in Section Lab Results No Data in Section Instructions No Data in Section Insurance Providers Insurance Id Policy Effective Date Policy Thru Date Company N [employer] [id number] 2017 [employer] Managed MBetina crenshaw
--- OUTSIDE RECORDS SUMMARY | 2020-04-10 12:26 | CCD | Continuity of Care Document ---
Author Author Efrain GONZALEZ MD Organization Unknown Address [address] [place] [address] Phone [phone] Problems Description No Information Available Social History Type Date Description Comments Sex Unknown ETOH Use Rarely consumes alcohol Tobacco Use Start: Unknown Denies Smoking Allergies, Adverse Reactions, Alerts Active Allergies Reaction Severity Comments Date Zofran 11/14/2016 Cortizone-10 11/14/2016 IVP Dye 11/14/2016 Medications Active Medications SIG Qnty Indications Ordering Provide r Date Percocet 5-325mg Tablets 1-2 tabs by mouth [...] Available Procedures Date Code Description Status 01/14/2020 55542 X-Ray Knee Complete W/Obliques & Tunnel And/Or Standing Views Completed Medical Devices Description No Information Available Encounters Description No Information Available Assessments Date Code Description Provider 01/14/2020 Z47.89 Encounter for other orthopedic a ftercare Elvin Gonzalez MD 01/14/2020 M25.561 Pain in right knee Elvin kincaid MD Plan of Treatment 01/14/2020 - Elvin Gonzalez MD* Z47.89 Encounter for other orthopedic aftercare * M25.561 Pain in right knee* New Xrays:* MRI RT Knee, Ordered: 01/14/20 * Follow up:* after MRI results with ANM Functional Status Description No Information Available Mental Status Description No Information Available Referrals Description No Information Available
--- OUTSIDE RECORDS SUMMARY | 2020-04-10 12:26 | CCD ---
Author Author [facility] Organization [facility] Address Unknown Phone Unavailable Care Team Providers Care Application Programmer Analyst Name Role Phone Brown Barry Unavailable PROBLEMS Type Condition ICD9-CM Code PWH40-WL Code Onset Dates Condition S tatus SNOMED Code Notes Problem Insomnia, unspecified type G47.00 Active 52700 2001 Problem Psychophysiological insomnia F51.04 Active 241 23660 Problem Hypoglycemia E16.2 Active 885369433 Problem Vitamin D deficiency E55.9 Active 83726322 Problem History of breast cancer Z85.3 Active 0247215 02 Problem Postsurgical dumping syndrome K91.1 Active 80 616370 Problem History of Nini-en-Y gastric bypass Z98.84 Acti ve 939018400 Problem Vitamin B12 deficiency E53.8 Active 042713046 Problem Pain in right knee M25.561 Active 16059787 Problem Other chronic pain G89.29 Active 76565560 Problem Varicose 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 20 Active 204048053 Problem Daytime somnolence R40.0 Active 067491178452 ALLERGIES Allergen (clinical drug ingredient) Drug/Non Drug Allergy do cumented on EMR Reaction Allergy Type Onset Date Status ondansetron Zofran([facility] Code:[address]-97) tongue swelling Drug Aller gy Active piperacillin / tazobactam Zosyn([facility] Code:[address]-68) Hives Dr ug Allergy Active Cortisone heart racing/ high blood pressure Drug Allergy Active IV Contrast Dye Hives Drug Allergy Active ENCOUNTERS from 1977 to 2020-02-28 Encounter Location Date Provider Diagnosis [facility] [address] [place] [address] Feb, Brown Barry Ovarian cyst N83.209 IMMUNIZATIONS [...] College Language: Question Answer Notes Languages spoken: Ukrainian Episcopal: Question Answer Notes Episcopal 03 Anabaptist Sexual Hx: Question Answer Notes Had sex [...] FOR REFERRAL No Information VITAL SIGNS Weight 181 lbs Feb, Height 63 in Feb, BMI 32.06 kg/m2 Feb, Blood pressure systolic 122 mm Hg Feb, Blood pressure diastolic 76 mm Hg Feb, MEDICATIONS Medication SIG (Take, [...] for 30 day(s) Feb, Active Vitamin D3 13587 UNIT as directed Orally Weekly for 30 [...] Information RESULTS No Results REASON FOR VISIT PRE OP SURG 02/28/20 MEDICAL (GENERAL) HISTORY Type Description Date Medical [...] OF TREATMENT Next Appt Details Provider Name:Brown Barry, 2020-03-15 11:40:00 AM, [address] [place] [address], [phone], Provider Name:Brown Barry 2020-04-11 09:30:00 AM, [address] [place] [address], [phone], Insurance Providers Payer Name Payer Address Payer Phone Insured Name Patient Relati onship to Insured Coverage Start Date Coverage End Date [facility] [address] [facility] [phone] VIVEK GAMEZ self
--- OUTSIDE RECORDS SUMMARY | 2020-04-10 12:27 | CCD ---
Author Author [facility] Organization [facility] Address Unknown Phone Unavailable Care Team Providers Care Scale Assembly Set Up Worker Name Role Phone LIZETH, E KENDALL DO Unavailable Unavailable LIZETH, E KENDALL DO Unavailable Unavailable LIZETH, E KENDALL DO Unavailable Unavailable LIZETH, E KENDALL DO Unavailable Unavailable LIZETH, E KENDALL DO Unavailable Unavailable LIZETH, E KENDALL DO Unavailable Unavailable LIZETH, E KENDALL DO Unavailable Unavailable LIZETH, E KENDALL DO Unavailable Unavailable LIZETH, E KENDALL DO Unavailable Unavailable LIZETH, E KENDALL DO Unavailable Unavailable LIZETH, E KENDALL DO Unavailable Unavailable LIZETH, E KENDALL DO Unavailable Unavailable LIZETH, E KENDALL DO Unavailable Unavailable LIZETH, E KENDALL DO Unavailable Unavailable LIZETH, E KENDALL DO Unavailable Unavailable LIZETH, E KENDALL DO Unavailable Unavailable LIZETH, E KENDALL DO Unavailable Unavailable LIZETH, E KENDALL DO Unavailable Unavailable LIZETH, E KENDALL DO Unavailable Unavailable LIZETH, E KENDALL DO Unavailable Unavailable LIZETH, E KENDALL DO Unavailable Unavailable Dubois, L Dominique RPA Unavailable Unavailable Dubois, L Dominique RPA Unavailable Unavailable Dubois, L Dominique RPA Unavailable Unavailable Dubois, L Dominique RPA Unavailable Unavailable Dubois, L Dominique RPA Unavailable Unavailable Dubois, L Dominique RPA Unavailable Unavailable Dubois, L Dominique RPA Unavailable Unavailable Dubois, L Dominique RPA Unavailable Unavailable Dubois, L Dominique RPA Unavailable Unavailable Dubois, L Dominique RPA Unavailable Unavailable Dubois, L Dominique RPA Unavailable Unavailable Dubois, L Dominique RPA Unavailable Unavailable Dubois, L Dominique RPA Unavailable Unavailable Dubois, L Dominique RPA Unavailable Unavailable Dubois, L Dominique RPA Unavailable Unavailable Dubois, L Dominique RPA Unavailable Unavailable Dubois, L Dominique RPA Unavailable Unavailable Dubois, L Dominique RPA Unavailable Unavailable Dubois, L Dominique RPA Unavailable Unavailable Dubois, L Dominique RPA Unavailable Unavailable Dubois, L Dominique RPA Unavailable Unavailable Dubois, L Dominique RPA Unavailable Unavailable Dubois, L Dominique RPA Unavailable Unavailable Dubois, L Dominique RPA Unavailable Unavailable Dubois, L Dominique RPA Unavailable Unavailable Dubois, L Dominique RPA Unavailable Unavailable Dubois, L Dominique RPA Unavailable Unavailable Dubois, L Dominique RPA Unavailable Unavailable Dubois, L Dominique RPA Unavailable Unavailable Dubois, L Dominique RPA Unavailable Unavailable Dubois, L Dominique RPA Unavailable Unavailable Dubois, L Dominique RPA Unavailable Unavailable Tatiana CRANDALL Unavailable Unavailable Jalyn Johnson Unavailable Unavailable MIRELA GONZALEZ MD Unavailable Unavailable MIRELA GONZALEZ MD Unavailable Unavailable MIRELA GONZALEZ MD Unavailable Unavailable MIRELA GONZALEZ MD Unavailable Unavailable MIRELA GONZALEZ MD Unavailable Unavailable MIRELA GONZALEZ MD Unavailable Unavailable MIRELA GONZALEZ MD Unavailable Unavailable MIRELA GONZALEZ MD Unavailable Unavailable MIRELA GONZALEZ MD Unavailable Unavailable MIRELA GONZALEZ MD Unavailable Unavailable MIRELA GONZALEZ MD Unavailable Unavailable MIRELA GONZALEZ MD Unavailable Unavailable MIRELA GONZALEZ MD Unavailable Unavailable MIRELA GONZALEZ MD Unavailable Unavailable MIRELA GONZALEZ MD Unavailable Unavailable MIRELA GONZALEZ MD Unavailable Unavailable MIRELA GONZALEZ MD Unavailable Unavailable MIRELA GONZALEZ MD Unavailable Unavailable MIRELA GONZALEZ MD Unavailable Unavailable MIRELA GONZALEZ MD Unavailable Unavailable MIRELA GONZALEZ MD Unavailable Unavailable MIRELA GONZALEZ MD Unavailable Unavailable MARKWITH, MIRELA MATOS Unavailable Unavailable MARKWITH, MIRELA MATOS Unavailable Unavailable MARKWITH, MIRELA MATOS Unavailable Unavailable MARKWITH, MIRELA MATOS Unavailable Unavailable MARKWITH, MIRELA MATOS Unavailable Unavailable MARKWITH, MIRELA MATOS Unavailable Unavailable MARKWITH, MIRELA MATOS Unavailable Unavailable MARKWITH, MIRELA MD Unavailable Unavailable MARKWITH, MIRELA MD Unavailable Unavailable MARKWITH, MIRELA MD Unavailable Unavailable MARKWITH, MIRELA Unavailable Unavailable Re-disclosure Warning The records that you are about to access may contain information from federally-assisted alcohol or drug abuse programs. If such information is present, then the following federally mandated warning applies: This information has been disclosed to you from records protected by federal confidentiality rules (42 CFR part 2). The federal rules prohibit you from making any further disclosure of this information unless further disclosure is expressly permitted by the written consent of the person to whom it pertains or as otherwise permitted by 42 CFR part 2. A general authorization for the release of medical or other information is NOT sufficient for this purpose. The Federal rules restrict any use of the information to criminally investigate or prosecute any alcohol or drug abuse patient.The records that you are about to access may contain highly sensitive health information, the redisclosure of which is protected by Article 27-F of the [facility] Public Health law. If you continue you may have access to information: Regarding HIV / AIDS; Provided by facilities licensed or operated by the [facility] Office of Mental Health; or Provided by the [facility] Office for People With Developmental Disabilities. If such information is present, then the following [facility] mandated warning applies: This information has been disclosed to you from confidential records which are protected by state law. State law prohibits you from making any further disclosure of this information without the specific written consent of the person to whom it pertains, or as otherwise permitted by law. Any unauthorized further disclosure in violation of state law may result in a fine or nursing home sentence or both. A general authorization for the release of medical or other information is NOT sufficient authorization for further disc losure. Allergies and Adverse Reactions Type Description Substance Reaction Status Data Source(s ) Drug allergy Zofran Ondansetron tongue swelling [facility] Zosyn Zosyn Piperacillin 4000 MG / tazobactam 500 MG Injection [Zosyn] Hives Active [facility]) Cortisone Cortisone Cortisone heart racing/ high blood pressure A ctive [facility]) Cortisone Cortisone Cortisone heart racing/ high blood pressure A ctive eCW[facility]) Family History Family Member Name Family Member Gender Family Member Status Date o f Status Description Data Source(s) Unknown Male Problem MEDENT ([facility]) Unknown Unknown Problem MEDENT ([facility]) Unknown Unknown Problem MEDENT ([facility]) Encounters Encounter Providers Location Date Indications Data Source(s ) TEMPMHCTelemed 30" Psychotherapy Attender: Jalyn Slaughtery [facility] 04/06/2020 09:00:00 AM EST - 04/06/2020 09:00:00 AM EST [facility] ([facility]) Attender: Jalyn Alex 04/06/2020 12:00:00 AM EST [facility] ([facility]) Unknown [address] [facility] [address] 03/30/2020 12:00:00 AM EST eCW1 ([facility]) TEMPMHCTelemed-Family and client 1 hr. Attender: Jalyn Johnson [facility] 03/29/2020 09:00:00 AM EST - 03/29/2020 09:00:00 AM EST [facility] ([facility]) Attender: Jalyn Johnson 03/29/2020 12:00:00 AM EST [facility] ([facility]) Unknown [address] [facility] [address] 03/28/2020 12:00:00 AM EST eCW1 ([facility]) Unknown [address] [facility] [address] 03/23/2020 12:00:00 AM EST eCW1 ([facility]) [place] [address] [facility] [place] [address] 03/22/2020 12:00:00 AM EST eCW1 ([facility]) TEMPMHCTelemed-Family and client 1 hr. Attender: Jalyn Johnson [facility] 03/16/2020 10:00:00 AM EST - 03/16/2020 10:00:00 AM EST [facility] ([facility]) Attender: Jalyn Johnson 03/16/2020 12:00:00 AM EST [facility] ([facility]) TEMPMHCTelemed-Family and client 1 hr. Attender: Jalyn Johnson [facility] 02/24/2020 08:00:00 AM EST - 02/24/2020 08:00:00 AM EST [facility] ([facility]) Attender: Jalyn Johnson 02/24/2020 12:00:00 AM EST [facility] ([facility]) Unknown [address] [facility] [address] 02/22/2020 12:00:00 AM EST [facility]CW1 [facility]) Office Visit, Est Pt., Level 3 FC [address] [place] [address] 02/21/2020 12:00:00 AM EST eCW1 ([facility]) Outpatient [address] [facility] [address] 02/10/2020 12:00:00 AM EST eCW1 ([facility]) Unknown [address] [facility] [address] 02/10/2020 12:00:00 AM EST eCW1 ([facility]) Unknown [address] [facility] [address] 02/10/2020 12:00:00 AM EST eCW1 ([facility]) Unknown [address] [facility] [address] 01/24/2020 12:00:00 AM EST eCW1 ([facility]) Outpatient Attender: MIRELA GONZALEZ MD Physical Therapy 09:00:00 AM EST [facility] ([facility] ) Psychotherapy - Family & Client 1 hour Attender: Jalyn Johnson [facility] 01/13/2020 10:00:00 AM EST - 01/13/2020 10:00:00 AM EST [facility] ([facility]) Attender: Jalynlatonia Slaughtery 01/13/2020 12:00:00 AM EST [facility] ([facility]) TEMPMHCTelemed-Family and client 1 hr. Attender: Jalyn Johnson [facility] 12/16/2019 08:00:00 AM EDT - 12/16/2019 08:00:00 AM EDT [facility] ([facility]) Attender: Jalyn Alex 12/16/2019 12:00:00 AM EDT [facility] ([facility]) TEMPMHCTelemed-Family and client 1 hr. Attender: Jalyn Johnson [facility] 11/25/2019 08:00:00 AM EDT - 11/25/2019 08:00:00 AM EDT [facility] ([facility]) Attender: Jalyn Johnson 11/25/2019 12:00:00 AM EDT [facility] ([facility]) [address] [address] 11/16/2019 12:00:00 AM EDT eCW1 ([facility]) TEMPMHCTelemed-Family and client 1 hr. Attender: Jalyn Johnson [facility] 11/11/2019 08:00:00 AM EDT - 11/11/2019 08:00:00 AM EDT [facility] ([facility]) Attender: Jalyn Alex 11/11/2019 12:00:00 AM EDT [facility] ([facility]) Outpatient Attender: KENDALL Thornton/Ayah/Waqas/Dustin oswald 11/03/2019 10:00:00 AM EDT MEDENT ([facility]) TEMPMHCTelemed 30" Psychotherapy Attender: Jalyn Johnson [facility] 09/09/2019 07:00:00 AM EDT - 09/09/2019 07:00:00 AM EDT [facility] ([facility]) Attender: Jalyn Johnson 09/09/2019 12:00:00 AM EDT [facility] ([facility]) [id number]"Psychotherapy Attender: Jalyn Alex [facility] 09/02/2019 08:00:00 AM EDT - 09/02/2019 08:00:00 AM EDT [facility] ([facility]) Attender: Jalyn Johnson 09/02/2019 12:00:00 AM EDT [facility] ([facility]) TEMPMHCTelemed-Family and client 1 hr. Attender: Jalynlatonia Johnson [facility] 08/23/2019 08:00:00 AM EDT - 08/23/2019 08:00:00 AM EDT [facility] ([facility]) Attender: Jalyn Johnson 08/23/2019 12:00:00 AM EDT [facility] ([facility]) TEMPMHCTelemed-Family and client 1 hr. Attender: Jalynlatonia Johnsno [facility] 08/16/2019 09:00:00 AM EDT - 08/16/2019 09:00:00 AM EDT [facility] ([facility]) Attender: Jalyn Johnson 08/16/2019 12:00:00 AM EDT [facility] ([facility]) [facility] [address] [place] [address] 08/11/2019 12:00:00 AM EDT eCW1 ([facility]) TEMPMHCTelemed 30" Psychotherapy Attender: Jalyn Johnson [facility] 08/10/2019 12:45:00 PM EDT - 08/10/2019 12:45:00 PM EDT [facility] ([facility]) [id number]"Psychotherapy Attender: Jalyn Alex [facility] 08/10/2019 10:00:00 AM EDT - 08/10/2019 10:00:00 AM EDT [facility] ([facility]) Attender: Jalyn Johnson 08/10/2019 12:00:00 AM EDT [facility] ([facility]) Attender: Jalyn Johnson 08/10/2019 12:00:00 AM EDT [facility] ([facility]) TEMPMHCTelemed-Family and client 1 hr. Attender: Jalyn Johnson [facility] 08/05/2019 09:00:00 AM EDT - 08/05/2019 09:00:00 AM EDT [facility] ([facility]) Attender: Jalyn Johnson 08/05/2019 12:00:00 AM EDT [facility] ([facility]) Outpatient 08/01/2019 08:11:00 AM EDT [facility] TEMPMHCTelemed-Family and client 1 hr. Attender: Jalyn Johnson [facility] 07/29/2019 09:30:00 AM EDT - 07/29/2019 09:30:00 AM EDT [facility] ([facility]) Attender: Jalyn Johnson 07/29/2019 12:00:00 AM EDT [facility] ([facility]) [id number]"Psychotherapy Attender: Jalyn Weiss [facility] 07/23/2019 08:30:00 AM EDT - 07/23/2019 08:30:00 AM EDT [facility] ([facility]) Attender: Jalyn Johnson 07/23/2019 12:00:00 AM EDT [facility] ([facility]) [facility] Telemed Diag Eval no med Attender: Jalyn Weiss [facility] 07/22/2019 02:00:00 AM EDT - 07/22/2019 02:00:00 AM EDT [facility] ([facility]) Attender: Jalyn Johsnon 07/22/2019 12:00:00 AM EDT [facility] ([facility]) [facility] [address] [place] [address] 07/20/2019 12:00:00 AM EDT eCW1 ([facility]) [facility] [address] [place] [address] 07/07/2019 12:00:00 AM EDT eCW1 ([facility]) [facility] [address] [place] [address] 07/06/2019 12:00:00 AM EDT eCW1 ([facility]) [facility] [address] [place] [address] 06/30/2019 12:00:00 AM EDT eCW1 ([facility]) Outpatient 06/25/2019 04:58:00 AM EDT [facility] Outpatient Attender: Dominique Jamilang/Oral/Waqas/R eindl 06/08/2019 10:45:00 AM EDT MEDENT ([facility]) Outpatient Attender: KENDALL Thornton/Ayah/Waqas/Reind l 05/31/2019 02:15:00 PM EDT MED[facility] ([facility]) Outpatient Attender: Dominique Finch/Oral/Waqas/R eindl 05/27/2019 11:30:00 AM EDT MED[facility] ([facility]) [facility] [address] [facility] [address] 05/14/2019 12:00:00 AM EST eCW1 ([facility]) [facility] [address] [facility] [place] [address] 05/14/2019 12:00:00 AM EST eCW1 ([facility]) [facility] [address] [facility] [place] [address] 05/13/2019 12:00:00 AM EST eCW1 ([facility]) [facility] [address] [facility] [place] [address] 05/13/2019 12:00:00 AM EST eCW1 ([facility]) [facility] [address] [facility] [address] 03/22/2019 12:00:00 AM EST eCW1 ([facility]) Outpatient Attender: BYRON CRANDALL 02/25/2019 12:00:00 A M EST [facility] Outpatient Attender: MIRELA GONZALEZ MD Physical Therapy 09:00:00 AM EST MEDENT ([facility]) Medications Medication Brand Name Start Date Product Form Dose Route Admi nistrative Instructions Pharmacy Instructions Status Indications Reaction Description Data Source(s) Ciprofloxacin 500 MG Oral Tablet [Cipro] Cipro 04/07/2020 12:00: 00 AM EST ORAL active MEDENT ([facility], ) Fexofenadine hydrochloride 60 MG Oral Tablet Loreta Allergy 04/07/2020 12:00:00 AM EST ORAL active MEDENT ([facility], ) cetirizine hydrochloride 10 MG Oral Capsule [Zyrtec] Zyrtec Allergy 04/07/2020 12:00:00 AM EST ORAL active M EDENT ([facility], ) Vitamin D-3 25 MCG (1000 UT) Vitamin D-3 25 MCG (1000 UT) 12:00:00 AM EST 2.0 {capsule} active Vitamin D- 3 25 MCG (1000 UT) [facility] Vitamin D-3 25 MCG (1000 UT) Vitamin D-3 25 MCG (1000 UT) 12:00:00 AM EST 2.0 {capsule} active Vitamin D- 3 25 MCG (1000 UT) [facility]CW[facility]) Vitamin D-3 25 MCG (1000 UT) Vitamin D-3 25 MCG (1000 UT) 12:00:00 AM EST 2.0 {capsule} active Vitamin D- 3 25 MCG (1000 UT) eCW1 [facility]) Vitamin D-3 25 MCG (1000 UT) Vitamin D-3 25 MCG (1000 UT) 12:00:00 AM EST 2.0 {capsule} active Vitamin D- 3 25 MCG (1000 UT) eCW1 [facility]) Methylprednisolone 4 MG Oral Tablet [Medrol] Medrol 02/2020 12:00:00 AM EST active MEDENT ( [facility]) tramadol hydrochloride 50 MG Oral Tablet Tramadol HCL 01/20/2020 12:00:00 AM EST active [facility] ([facility]) Fluconazole 150 MG Oral Tablet [Diflucan] Diflucan 150 MG Di flucan 150 MG 07/06/2019 12:00:00 AM EDT 1.0 {tablet} suspended Diflucan 150 MG eCW1 [facility]) Fluconazole 150 MG Oral Tablet [Diflucan] Diflucan 150 MG Di flucan 150 MG 07/06/2019 12:00:00 AM EDT 1.0 {tablet} suspended Diflucan 150 MG eCW1 [facility]) Fluconazole 150 MG Oral Tablet [Diflucan] Diflucan 150 MG Di flucan 150 MG 07/06/2019 12:00:00 AM EDT 1.0 {tablet} suspended Diflucan 150 MG eCW1 [facility]) Fluconazole 150 MG Oral Tablet [Diflucan] Diflucan 150 MG Di flucan 150 MG 07/06/2019 12:00:00 AM EDT active 1 tablet [facility]CW[facility]) Fluconazole 150 MG Oral Tablet [Diflucan] Diflucan 150 MG Di flucan 150 MG 07/06/2019 12:00:00 AM EDT 1.0 {tablet} suspended Diflucan 150 MG eCW1 [facility]) Fluconazole 150 MG Oral Tablet [Diflucan] Diflucan 150 MG Di flucan 150 MG 07/06/2019 12:00:00 AM EDT 1.0 {tablet} suspended Diflucan 150 MG eCW1 [facility]) Fluconazole 150 MG Oral Tablet [Diflucan] Diflucan 150 MG Di flucan 150 MG 07/06/2019 12:00:00 AM EDT 1.0 {tablet} active Diflucan 150 MG eCW1 [facility]) Acetaminophen 325 MG / Oxycodone Hydrochloride 5 MG Or al Tablet [Percocet] Percocet 03/23/2019 12:00:00 AM EST ORAL active MEDENT ([facility]) 5-325 mg 03/23/2019 12:00:00 AM EST tablet 20 TAKE ONE TO TWO TABLETS BY MOUTH EVERY 4 HOURS NEEDED FOR PAIN AFTER SURGERY, MAXIMUM DAILY DOSE = 8 TAKE ONE TO TWO TABLETS BY MOUTH EVERY 4 HOURS NEEDED FOR PAIN AFTER SURGERY, MAXIMUM DAILY DOSE = 8 SOLD: 03/24/2019 [facility] Insurance Providers Payer name Policy type / Coverage type Policy ID Covered constitution party ID Covered constitution party's relationship to brand Policy Brand Plan Information [facility] [id number] SP [id number] [facility] [id number] SP [id number] [facility] [id number] S [id number] [facility] [id number] SP [id number] [facility] [id number] Self [id number] [facility] [id number] SP [id number] ANSI-Medicaid [id number] ANSI-Medicaid [id number] ANSI-Medicaid [id number] ANSI-Medicaid [id number] ANSI-Medicaid [id number] [facility] Health Maintenance Organization (HMO) [id number] Self [id number] MEDICAID [id number] SP [id number] [facility] PLAN [facility] [id number] SP [id number] Formerly [facility] Plan Commercial [id number] Self [id number] [facility] Commercial [id number] Self [id number] [facility] Commercial [id number] Self [id number] [facility] [id number] SP [id number] [facility] [id number] SP [id number] MEDICAID [id number] SP [id number] [facility] Health Maintenance Organization (HMO) Self Problems, Conditions, and Diagnoses Code Display Name Description Problem Type Effective Dates Data Source(s) F41.9 Anxiety disorder, unspecified Unspecified Anxiety Diso rder Condition 04/06/2020 12:00:00 AM EST [facility] ([facility]) F43.11 Post-traumatic stress disorder, acute Po st-traumatic stress disorder, acute Condition 04/06/2020 12:00:00 AM EST [facility] ([facility]) F43.11 Post-traumatic stress disorder, acute Po st-traumatic stress disorder, acute Condition 07/29/2019 12:00:00 AM EDT [facility] ([facility]) F41.9 Anxiety disorder, unspecified Unspecified Anxiety Diso rder Condition 07/29/2019 12:00:00 AM EDT [facility] ([facility]) E65 [id number] Abdominal pannus Problem 05/13/2019 12:00 :00 AM EST [facility] I83.812 [id number] Varicose veins of left lower extremity wi th pain Problem 05/13/2019 12:00:00 AM EST eCW1 [facility]) E65 [id number] Abdominal pannus Problem 05/13/2019 12:00 :00 AM EST eCW1 [facility]) I83.812 [id number] Varicose veins of left lower extremity wi th pain Problem 05/13/2019 12:00:00 AM EST eCW1 [facility]) Surgeries/Procedures Procedure Description Date Indications Data Source(s) TEMPMHCTelemed 30" Psychotherapy 021 12:00:00 AM EST - 04/06/2020 12:00:00 AM EST [facility] ([facility]) TEMPMHCTelemed 30" Psychotherapy 04/06/2020 12:00:00 A M EST [facility] ([facility]) Reduction Mammaplasty (Female Only) 04/04/2020 12:00:0 0 AM EST MEDENT ([facility]) TEMPMHCTelemed-Family and client 1 hr. 0 03/29/2020 12:00:00 AM EST - 03/29/2020 12:00:00 AM EST [facility] ([facility]) TEMPMHCTelemed-Family and client 1 hr. 03/29/2020 12:0 0:00 AM EST [facility] ([facility]) ECG ROUTINE ECG W/LEAST 12 LDS W/I&R 03/22/2020 12:00: 00 AM EST [facility]CW1 [facility]) TEMPMHCTelemed-Family and client 1 hr. 0 03/16/2020 12:00:00 AM EST - 03/16/2020 12:00:00 AM EST [facility] ([facility]) TEMPMHCTelemed-Family and client 1 hr. 03/16/2020 12:0 0:00 AM EST [facility] ([facility]) TEMPMHCTelemed-Family and client 1 hr. 1 04/26/2019 12:00:00 AM EST - 02/24/2020 12:00:00 AM EST [facility] ([facility]) TEMPMHCTelemed-Family and client 1 hr. 02/24/2020 12:0 0:00 AM EST [facility] ([facility]) RADIOLOGIC EXAM KNEE COMPLETE 4/MORE VIEWS 01/14/2020 12:00:00 AM EST MED[facility] ([facility]) FAMILY PSYCHOTHERAPY W/PATIENT PRESENT 1 03/14/2019 12:00:00 AM EST - 01/13/2020 12:00:00 AM EST [facility] ([facility]) FAMILY PSYCHOTHERAPY W/PATIENT PRESENT 01/13/2020 12:0 0:00 AM EST [facility] ([facility]) TEMPMHCTelemed-Family and client 1 hr. 1 12:00:00 AM EDT - 12/16/2019 12:00:00 AM EDT [facility] ([facility]) TEMPMHCTelemed-Family and client 1 hr. 12/16/2019 12:0 0:00 AM EDT [facility] ([facility]) TEMPMHCTelemed-Family and client 1 hr. 0 11/25/2019 12:00:00 AM EDT - 11/25/2019 12:00:00 AM EDT [facility] ([facility]) TEMPMHCTelemed-Family and client 1 hr. 11/25/2019 12:0 0:00 AM EDT [facility] ([facility]) TEMPMHCTelemed-Family and client 1 hr. 0 11/11/2019 12:00:00 AM EDT - 11/11/2019 12:00:00 AM EDT [facility] ([facility]) TEMPMHCTelemed-Family and client 1 hr. 11/11/2019 12:0 0:00 AM EDT [facility] ([facility]) TEMPMHCTelemed 30" Psychotherapy 020 12:00:00 AM EDT - 09/09/2019 12:00:00 AM EDT [facility] ([facility]) TEMPMHCTelemed 30" Psychotherapy 09/09/2019 12:00:00 A M EDT [facility] ([facility]) [id number]"Psychotherapy 0 12:00:00 AM EDT - 09/02/2019 12:00:00 AM EDT [facility] ([facility]) [id number]"Psychotherapy 09/02/2019 12:00:00 AM EDT [facility] ([facility]) TEMPMHCTelemed-Family and client 1 hr. 0 08/23/2019 12:00:00 AM EDT - 08/23/2019 12:00:00 AM EDT [facility] ([facility]) TEMPMHCTelemed-Family and client 1 hr. 08/23/2019 12:0 0:00 AM EDT [facility] ([facility]) TEMPMHCTelemed-Family and client 1 hr. 0 08/16/2019 12:00:00 AM EDT - 08/16/2019 12:00:00 AM EDT [facility] ([facility]) TEMPMHCTelemed-Family and client 1 hr. 08/16/2019 12:0 0:00 AM EDT [facility] ([facility]) TEMPMHCTelemed 30" Psychotherapy 020 12:00:00 AM EDT - 08/10/2019 12:00:00 AM EDT [facility] ([facility]) TEMPMHCTelemed 30" Psychotherapy 08/10/2019 12:00:00 A M EDT [facility] ([facility]) [id number]"Psychotherapy 0 12:00:00 AM EDT - 08/10/2019 12:00:00 AM EDT [facility] ([facility]) [id number]"Psychotherapy 08/10/2019 12:00:00 AM EDT [facility] ([facility]) TEMPMHCTelemed-Family and client 1 hr. 0 08/05/2019 12:00:00 AM EDT - 08/05/2019 12:00:00 AM EDT [facility] ([facility]) TEMPMHCTelemed-Family and client 1 hr. 08/05/2019 12:0 0:00 AM EDT [facility] ([facility]) TEMPMHCTelemed-Family and client 1 hr. 0 07/29/2019 12:00:00 AM EDT - 07/29/2019 12:00:00 AM EDT [facility] ([facility]) TEMPMHCTelemed-Family and client 1 hr. 07/29/2019 12:0 0:00 AM EDT [facility] ([facility]) [id number]"Psychotherapy 0 12:00:00 AM EDT - 07/23/2019 12:00:00 AM EDT [facility] ([facility]) [id number]"Psychotherapy 07/23/2019 12:00:00 AM EDT [facility] ([facility]) [facility] Telemed Diag Eval no med 07/22/2019 12:00:00 AM EDT - 07/22/2019 12:00:00 AM EDT [facility] ([facility]) [facility] Telemed Diag Eval no med 07/22/2019 12:00:00 AM ED T [facility] ([facility]) Arthroscopy Knee Synovectomy Major 03/24/2019 12:00:00 AM EST [facility] ([facility] ) ARTHRS KNE SURG W/MENISCECTOMY MED/LAT W/SHVG 03/24/19 20 12:00:00 AM EST [facility] ([facility]) Results ID Date Data Source [id number] 04/04/2020 12:26:00 PM EST [facility] ([facility], ) Name Value Range Interpretation Code Description Data Paula rce(s) Supporting Document(s) Surgical pathology study Laboratory test result [facility] ([facility], ) FINAL DIAGNOSIS A - Breast, right, reduction: Benign breast parenchyma. B - Breast, left, reduction: Benign breast parenchyma. 04/05/2020 - 1553 CLINICAL DIAGNOSIS Bilateral breast hypertrophy, bilateral breast ptosis, congenital deformities of chest 04/05/2020 - 1337 GROSS DIAGNOSIS A - Received in formalin labeled "right breast tissue, 227 grams" consists of multiple fragments of skin and attached fibroadipose tissue measuring 22 x 10 x 5 cm in aggregate. Sectioning through the specimen reveals lobulated fibroadipose tissue and fibrous parenchyma with no grossly apparent lesions. [employer]ologist sections in one block. B - Received in formalin labeled "left breast tissue, 331 grams" consists of multiple fragments of skin and attached fibroadipose tissue measuring 16 x 15 x 4.0 cm in aggregate. Sectioning through the specimen reveals lobulated fibroadipose tissue and fibrous parenchyma with no grossly apparent lesions. [employer] Technologist sections in one block. -SV 04/05/2020 - 1337 Signed LUCAS HANCOCK MD 04/06/2020 1128 ID Date Data Source [id number] 03/30/2020 11:45:00 AM EST [facility] Name Value Range Interpretation Code Description Data Paula rce(s) Supporting Document(s) SARS coronavirus 2 RNA Not Detected [facility] This lab was ordered by [facility] and reported by [facility]. ID Date Data Source [id number] 02/23/2020 11:30:00 AM EST [facility] Name Value Range Interpretation Code Description Data Paula rce(s) Supporting Document(s) SARS coronavirus 2 RNA [facility] This lab was ordered by [facility] and reported by [facility]. ID Date Data Source [id number] 01/17/2020 12:00:00 AM EST [facility] oly Imaging Mirela Gonzalez MD Patient Name: NIVIA GAMEZ [facility] Date of : 1975[facility] Date of Exam: 01/17/2020ROSSY Damian [id number]#: Fax: [id number] EXAM: MRI KNEE RIGHT WITHOUT CONTRASTCLINICAL INFORMATION: Pain after trauma.3T multiplanar MRI imaging of the right knee was obtained using varioussequences.Comparison is 11/01/2016 which showed mild chondromalacia pat sukhi andevidence of possible mild patellar synovitis.On 03/24/2019, the patient underwent partial lateral meniscectomy andsynovectomy with chondroplasty.The anterior and posterior horns of the lateral meniscus are within normallimits. The anterior and posterior horns of the medial meniscus are withinnormal limits. The anterior and posterior cruciate ligaments are intact.The quadriceps and patellar tendons are intact. The medial and lateralcollateral ligaments are intact. The medial and lateral patellarretinacula are intact. There is slight thinning and irregularity of theanterior medial femoral condylar articular cartilage at the trochleargroove with minimal irregularity of the corresponding patellar articularcartilage. There is mild thinning of the medial compartmental articularcartilages. There is a minimal joint effusion. There is evidence ofhypertrophic synovium seen in the suprapatellar joint. This is, however,less when compared to the prior exam. There is slight supralateralparapatellar plica. The marrow signal is within normal limits.IMPRESSION:1. There is no evidence of acute internal derangement.2. There is slight chondromalacia as described above.3. There is a slight joint effusion with mild synovial hypertrophy asdescribed above.4. Chondromalacia as described above.5. Plica as described above.Accredited by the [employer] in MR.TUNG Asencio/Brad blackwell for referring VIVEK GAMEZ to our office. Electronically Signed - CRISTY MATHEW DO 01/18/20 12:16 Name Value Range Interpretation Code Description Data Paula rce(s) Supporting Document(s) ID Date Data Source [id number] 01/13/2020 12:00:00 AM EST [facility] Name Value Range Interpretation Code Description Data Paula rce(s) Supporting Document(s) SARS coronavirus 2 RNA [Presence] in Res piratory specimen by CHRISTIANO with probe detection [facility] reported by [facility]. ID Date Data Source [id number] 10/07/2019 10:40:00 AM EDT [facility] Name Value Range Interpretation Code Description Data Paula rce(s) Supporting Document(s) SARS coronavirus 2 RNA [Presence] in Res piratory specimen by CHRISTIANO with probe detection [facility] This lab was ordered by [facility] a nd reported by [facility]. ID Date Data Source [id number] 09/27/2019 05:30:00 AM EDT [facility] Name Value Range Interpretation Code Description Data Paula rce(s) Supporting Document(s) SARS coronavirus 2 RNA [facility] This lab was ordered by [facility] and reported by [facility]. ID Date Data Source [id number] 09/23/2019 10:56:00 AM EDT [facility] Name Value Range Interpretation Code Description Data Paula rce(s) Supporting Document(s) SARS coronavirus 2 RNA [facility] This lab was ordered by [facility] and reported by [facility]. ID Date Data Source [id number] 05/13/2019 12:00:00 AM EST eCW1 ([facility]) Name Value Range Interpretation Code Description Data Paula rce(s) Supporting Document(s) 38.6 30.0-100.0 TOTAL 25(OH) VITAMIN D eC W1 ([facility] Procedure Social History Code Duration Value Status Description Data Source(s ) Smoking 04/06/2020 12:00:00 AM EST Unknown if ever smoked comp leted Unknown if ever smoked [facility] ([facility]) Smoking 03/29/2020 12:00:00 AM EST Unknown if ever smoked comp leted Unknown if ever smoked [facility] ([facility]) Smoking 03/22/2020 12:00:00 AM EST Never Smoker completed Never S moker eCW1 ([facility]) Smoking 03/22/2020 12:00:00 AM EST Never Smoker completed Never S moker eCW1 ([facility]) Smoking 03/22/2020 12:00:00 AM EST Never Smoker completed Never S moker eCW1 ([facility]) Smoking 03/22/2020 12:00:00 AM EST Never Smoker completed Never S moker eCW1 ([facility]) Smoking 03/16/2020 12:00:00 AM EST Unknown if ever smoked comp leted Unknown if ever smoked [facility] ([facility]) Smoking 02/24/2020 12:00:00 AM EST Unknown if ever smoked comp leted Unknown if ever smoked [facility] ([facility]) Smoking 02/11/2020 12:00:00 AM EST Never Smoker completed Never S moker eCW1 ([facility]) Smoking 02/11/2020 12:00:00 AM EST Never Smoker completed Never S moker eCW1 ([facility]) Smoking 02/11/2020 12:00:00 AM EST Never Smoker completed Never S moker eCW1 ([facility]) Smoking 02/11/2020 12:00:00 AM EST Never Smoker completed Never S moker eCW1 ([facility]) Smoking 02/11/2020 12:00:00 AM EST Never Smoker completed Never S moker eCW1 ([facility]) Smoking 01/13/2020 12:00:00 AM EST Unknown if ever smoked comp leted Unknown if ever smoked [facility] ([facility]) Smoking 01/04/2020 12:00:00 AM EDT Never Smoker completed Never S moker eCW1 ([facility]) Smoking 12/16/2019 12:00:00 AM EDT Unknown if ever smoked comp leted Unknown if ever smoked [facility] ([facility]) Smoking 11/25/2019 12:00:00 AM EDT Unknown if ever smoked comp leted Unknown if ever smoked [facility] ([facility]) Smoking 11/11/2019 12:00:00 AM EDT Unknown if ever smoked comp leted Unknown if ever smoked [facility] ([facility]) Smoking 09/09/2019 12:00:00 AM EDT Unknown if ever smoked comp leted Unknown if ever smoked [facility] ([facility]) Smoking 09/02/2019 12:00:00 AM EDT Unknown if ever smoked comp leted Unknown if ever smoked [facility] ([facility]) Smoking 08/23/2019 12:00:00 AM EDT Unknown if ever smoked comp leted Unknown if ever smoked [facility] ([facility]) Smoking 08/16/2019 12:00:00 AM EDT Unknown if ever smoked comp leted Unknown if ever smoked [facility] ([facility]) Smoking 08/10/2019 12:00:00 AM EDT Unknown if ever smoked comp leted Unknown if ever smoked [facility] ([facility]) Smoking 08/05/2019 12:00:00 AM EDT Unknown if ever smoked comp leted Unknown if ever smoked [facility] ([facility]) Smoking 07/29/2019 12:00:00 AM EDT Unknown if ever smoked comp leted Unknown if ever smoked [facility] ([facility]) Smoking 07/23/2019 12:00:00 AM EDT Unknown if ever smoked comp leted Unknown if ever smoked [facility] ([facility]) Smoking 07/22/2019 12:00:00 AM EDT Unknown if ever smoked comp leted Unknown if ever smoked [facility] ([facility]) Smoking 05/31/2019 12:00:00 AM EDT Non Smoker completed Non Smoke r [facility] ([facility], ) Vital Signs ID Date Data Source UNK Name Value Range Interpretation Code Description Data Source(s) Body temperature 97.7 [degF] 97.7 [degF] [facility] ([facility], ) Body temperature 96.1 [degF] 96.1 [degF] [facility] ([facility], ) Diastolic blood pressure 70 mm[Hg] 70 mm[Hg] eCW1 ([facility]) Systolic blood pressure 116 mm[Hg] 116 mm[Hg] e CW1 ([facility]) Body temperature 98.0 [degF] 98.0 [degF] eCW1 ( [facility]) Respiratory rate 16 /min 16 /min eCW1 ([facility]) Heart rate 72 /min 72 /min eCW1 ([facility]) Body mass index (BMI) [Ratio] 30.82 kg/m2 30.82 kg/m2 W1 ([facility]) Body height 63 [in_i] 63 [in_i] eCW1 ([facility]) Body weight 174 [lb_av] 174 [lb_av] eCW1 ([facility]) Diastolic blood pressure 76 mm[Hg] 76 mm[Hg] eCW1 ([facility]) Systolic blood pressure 122 mm[Hg] 122 mm[Hg] e CW1 ([facility]) Body mass index (BMI) [Ratio] 32.06 kg/m2 32.06 kg/m2 [facility] Body height 63 [in_i] 63 [in_i] eCW1 ([facility]) Body weight 181 [lb_av] 181 [lb_av] eCW1 ([facility]) Diastolic blood pressure 82 mm[Hg] 82 mm[Hg] eCW1 ([facility]) Systolic blood pressure 122 mm[Hg] 122 mm[Hg] e CW1 ([facility]) Body mass index (BMI) [Ratio] 30.64 kg/m2 30.64 kg/m2 eCW1 ([facility]) Body height 63 [in_i] 63 [in_i] eCW1 ([facility]) Body weight 78.47 kg 78.47 kg eCW1 ([facility]) Body weight 173 [lb_av] 173 [lb_av] eCW1 ([facility]) Body surface area Derived from formula 1.87 m2 1.87 m2 [facility] Body weight 81.648 kg 81.648 kg [facility] ([facility]) [place] body weight 120 [lb_av] 120 [lb_av] MEDEN T ([facility]) Body mass index (BMI) [Ratio] 30.9 kg/m2 30.9 k g/m2 [facility] ([facility]) Body weight 180.00 [lb_av] 180.00 [lb_av] MEDEN T ([facility]) Body height 64 [in_i] 64 [in_i] [facility] ([facility]) 5'4" Body temperature 97.4 [degF] 97.4 [degF] [facility] ([facility]) Respiratory rate 16 /min 16 /min [facility] ( [facility]) Heart rate 80 /min 80 /min [facility] ([facility]) Diastolic blood pressure 82 mm[Hg] 82 mm[Hg] [facility] ([facility], ) Systolic blood pressure 118 mm[Hg] 118 mm[Hg] M EDENT ([facility], ) Diastolic blood pressure 62 mm[Hg] 62 mm[Hg] eCW1 ([facility]) Systolic blood pressure 124 mm[Hg] 124 mm[Hg] e CW1 ([facility]) Body mass index (BMI) [Ratio] 30.68 kg/m2 30.68 kg/m2 eCW1 ([facility]) Body height 63 [in_us] 63 [in_us] eCW1 ([facility]) Body weight Measured 173.2 [lb_av] 173.2 [lb_av ] eCW1 ([facility]) Body weight 77.112 kg 77.112 kg [facility] ([facility] ) Body mass index (BMI) [Ratio] 29.2 kg/m2 29.2 k g/m2 [facility] ([facility]) Body weight 170.00 [lb_av] 170.00 [lb_av] MEDEN T ([facility]) Body height 64 [in_i] 64 [in_i] [facility] ([facility]) 5'4" Body temperature 96.9 [degF] 96.9 [degF] [facility] ([facility]) Diastolic blood pressure 70 mm[Hg] 70 mm[Hg] [facility] ([facility]) Systolic blood pressure 120 mm[Hg] 120 mm[Hg] M EDENT ([facility]) Body weight 77.112 kg 77.112 kg [facility] ([facility]) Body mass index (BMI) [Ratio] 29.2 kg/m2 29.2 k g/m2 [facility] ([facility]) Body weight 170.00 [lb_av] 170.00 [lb_av] MEDEN T ([facility]) Body height 64 [in_i] 64 [in_i] [facility] ([facility]) 5'4" Body temperature 98.6 [degF] 98.6 [degF] [facility] ([facility]) Respiratory rate 14 /min 14 /min [facility] ( [facility]) Heart rate 68 /min 68 /min [facility] ([facility]) Diastolic blood pressure 72 mm[Hg] 72 mm[Hg] [facility] Systolic blood pressure 124 mm[Hg] 124 mm[Hg] [facility] Body weight 75.978 kg 75.978 kg [facility] ([facility]) Body mass index (BMI) [Ratio] 29.7 kg/m2 29.7 k g/m2 [facility] Body weight 167.50 [lb_av] 167.50 [lb_av] MEDEN T ([facility]) Body height 63 [in_i] 63 [in_i] [facility] ([facility]) 5'3" Body temperature 98.2 [degF] 98.2 [degF] [facility] ([facility]) Diastolic blood pressure 68 mm[Hg] 68 mm[Hg] [facility] ([facility]) Systolic blood pressure 122 mm[Hg] 122 mm[Hg] [facility] Diastolic blood pressure 63 mm[Hg] 63 mm[Hg] eCW1 ([facility]) Systolic blood pressure 123 mm[Hg] 123 mm[Hg] e CW1 ([facility]) Body temperature 98.4 [degF] 98.4 [degF] eCW1 ( [facility]) Respiratory rate 17 /min 17 /min eCW1 ([facility]) Heart rate 74 /min 74 /min eCW1 ([facility]) Body mass index (BMI) [Ratio] 29.93 kg/m2 29.93 kg/m2 W1 ([facility]) Body height 63 [in_us] 63 [in_us] eCW1 ([facility]) Body weight Measured 169 [lb_av] 169 [lb_av] eC W1 ([facility]) Body mass index (BMI) [Ratio] 26.4 kg/m2 26.4 k g/m2 [facility] ([facility]) Body weight 154.00 [lb_av] 154.00 [lb_av] MEDEN T ([facility]) Body height 64 [in_i] 64 [in_i] LULA ([facility]) 5'4" Patient Treatment Plan of Care Planned Activity Planned Date Details Description Data Source (s) Vitamin D-3 25 MCG (1000 UT) 03/27/2020 12:00:00 AM EST eCW1 ([facility]) Vitamin D-3 25 MCG (1000 UT) 03/27/2020 12:00:00 AM EST eCW1 ([facility]) Vitamin D-3 25 MCG (1000 UT) 03/27/2020 12:00:00 AM EST eCW1 ([facility]) Vitamin D-3 25 MCG (1000 UT) 03/27/2020 12:00:00 AM EST eCW1 ([facility]) Fluconazole 150 MG Oral Tablet [Diflucan] 07/06/2019 12:00:00 AM ED T eCW1 ([facility]) Fluconazole 150 MG Oral Tablet [Diflucan] 07/06/2019 12:00:00 AM ED T eCW1 ([facility])
--- OUTSIDE RECORDS SUMMARY | 2020-04-10 13:57 | CCD ---
Author Author [facility] Organization [facility] Address Unknown Phone Unavailable Care Team Providers Care C T Tech Name Role Phone LIZETH, E KENDALL DO [...] is protected by Article 27-F of the [facility] Public Health law. If you continue you may have access to information: Regarding HIV / AIDS; Provided by facilities licensed or operated by the [facility] Office of Mental Health; or Provided by the [facility] Office for People With Developmental Disabilities. If such information is present, then the following [facility] mandated warning applies: This information has [...] law may result in a fine or chcf sentence or both. A general authorization for the release of medical or other information is NOT sufficient authorization for further disc losure. Allergies and Adverse Reactions Type Description Substance Reaction Status Data Source(s ) Drug allergy Zofran Ondansetron tongue swelling Active eCW1 ([facility]) Zosyn Zosyn Piperacillin 4000 MG / tazobactam 500 MG Injection [Zosyn] Hives Active eCW1 ([facility]) Cortisone Cortisone Cortisone heart racing/ high blood pressure A ctive eCW1 ([facility]) Cortisone Cortisone Cortisone heart racing/ high blood pressure A ctive eCW1 ([facility]) Family History Family Member Name Family Member Gender Family Member Status Date o f Status Description Data Source(s) Unknown Male Problem MEDENT ([facility]) Unknown Unknown Problem MEDENT ([facility]) Unknown Unknown Problem MEDENT ([facility]) Encounters Encounter Providers Location Date Indications Data Source(s ) TEMPMHCTelemed 30" Psychotherapy Attender: Jalyn Slaughtery [facility] 04/06/2020 09:00:00 AM EST - 04/06/2020 09:00:00 AM EST [facility] ([facility]) Attender: Jalyn Alex 04/06/2020 12:00:00 AM EST [facility] ([facility]) [place] [address] [facility] [address] 03/30/2020 12:00:00 AM EST eCW1 ([facility]) TEMPMHCTelemed-Family and client 1 hr. Attender: Jalyn Johnson [facility] 03/29/2020 09:00:00 AM EST - 03/29/2020 09:00:00 AM EST [facility] ([facility]) Attender: Jalyn Johnson 03/29/2020 12:00:00 AM EST [facility] ([facility]) Unknown [address] [facility] [address] 03/28/2020 12:00:00 AM EST eCW1 (Critical [facility] hospital) [place] [address] [facility] [address] 03/23/2020 12:00:00 AM EST eCW1 (Critical [facility] hospital) [place] [address] [facility] [place] [address] 03/22/2020 12:00:00 AM EST eCW1 (Critical access hospital) TEMPMHCTelemed-Family and client 1 hr. Attender: Jalyn Johnson [facility] 03/16/2020 10:00:00 AM EST - 03/16/2020 10:00:00 AM EST [facility] ([facility]) Attender: Jalyn Johnson 03/16/2020 12:00:00 AM EST [facility] ([facility]) TEMPMHCTelemed-Family and client 1 hr. Attender: Jalyn Johnson [facility] 02/24/2020 08:00:00 AM EST - 02/24/2020 08:00:00 AM EST [facility] ([facility]) Attender: Jalyn Johnson 02/24/2020 12:00:00 AM EST [facility] ([facility]) Unknown [address] [facility] [address] 02/22/2020 12:00:00 AM EST eCW1 ([facility]) Office Visit, Est Pt., Level 3 FC [address] [place] [address] 02/21/2020 12:00:00 AM EST eCW1 ([facility]) Outpatient [address] [facility] [address] 02/10/2020 12:00:00 AM EST eCW1 ([facility]) Unknown [address] [facility] [address] 02/10/2020 12:00:00 AM EST eCW1 ([facility]) Unknown [address] [facility] [address] 02/10/2020 12:00:00 AM EST eCW1 (Critical access hospital) Unknown [address] [facility] [address] 01/24/2020 12:00:00 AM EST eCW1 ([facility]) Outpatient Attender: MIRELA GONZALEZ MD Physical Therapy 09:00:00 AM EST MEDENT ([facility] ) Psychotherapy - Family & Client 1 hour Attender: Jalyn Johnson [facility] 01/13/2020 10:00:00 AM EST - 01/13/2020 10:00:00 AM EST [facility] ([facility]) Attender: Jalynlatonia Slaughtery 01/13/2020 12:00:00 AM EST [facility] ([facility]) TEMPMHCTelemed-Family and client 1 hr. Attender: Jalyn Johnson [facility] 12/16/2019 08:00:00 AM EDT - 12/16/2019 08:00:00 AM EDT [facility] ([facility]) Attender: Jalyn Alex 12/16/2019 12:00:00 AM EDT [facility] ([facility]) TEMPMHCTelemed-Family and client 1 hr. Attender: Jalyn Johnson [facility] 11/25/2019 08:00:00 AM EDT - 11/25/2019 08:00:00 AM EDT [facility] ([facility]) Attender: Jalyn Johnson 11/25/2019 12:00:00 AM EDT [facility] ([facility]) [address] [address] 11/16/2019 12:00:00 AM EDT eCW1 (Critical access hospital) TEMPMHCTelemed-Family and client 1 hr. Attender: Jalyn Johnson [facility] 11/11/2019 08:00:00 AM EDT - 11/11/2019 08:00:00 AM EDT [facility] ([facility]) Attender: Jalyn Alex 11/11/2019 12:00:00 AM EDT [facility] ([facility]) Outpatient Attender: KENDALL Thornton/Ayah/Waqas/Dustin oswald 11/03/2019 10:00:00 AM EDT MEDENT ([facility]) TEMPMHCTelemed 30" Psychotherapy Attender: Jalyn Johnson [facility] 09/09/2019 07:00:00 AM EDT - 09/09/2019 07:00:00 AM EDT [facility] ([facility]) Attender: Jalyn Johnson 09/09/2019 12:00:00 AM EDT [facility] ([facility]) [id number]"Psychotherapy Attender: Jalyn Alex [facility] 09/02/2019 08:00:00 AM EDT - 09/02/2019 08:00:00 AM EDT [facility] ([facility]) Attender: Jalyn Johnson 09/02/2019 12:00:00 AM EDT [facility] ([facility]) TEMPMHCTelemed-Family and client 1 hr. Attender: Jalynlatonia Johnson [facility] 08/23/2019 08:00:00 AM EDT - 08/23/2019 08:00:00 AM EDT [facility] ([facility]) Attender: Jalyn Johnson 08/23/2019 12:00:00 AM EDT [facility] ([facility]) TEMPMHCTelemed-Family and client 1 hr. Attender: Jalynlatonia Johnson [facility] 08/16/2019 09:00:00 AM EDT - 08/16/2019 09:00:00 AM EDT [facility] ([facility]) Attender: Jalyn Johnson 08/16/2019 12:00:00 AM EDT [facility] ([facility]) [facility] [address] [place] [address] 08/11/2019 12:00:00 AM EDT eCW1 ([facility]) TEMPMHCTelemed 30" Psychotherapy Attender: Jalyn Johnson [facility] 08/10/2019 12:45:00 PM EDT - 08/10/2019 12:45:00 PM EDT [facility] ([facility]) [id number]"Psychotherapy Attender: Jalyn Alex [facility] 08/10/2019 10:00:00 AM EDT - 08/10/2019 10:00:00 AM EDT [facility] ([facility]) Attender: Jalyn Johnson 08/10/2019 12:00:00 AM EDT [facility] ([facility]) Attender: Jalyn Johnson 08/10/2019 12:00:00 AM EDT [facility] ([facility]) TEMPMHCTelemed-Family and client 1 hr. Attender: Jalyn Johnson [facility] 08/05/2019 09:00:00 AM EDT - 08/05/2019 09:00:00 AM EDT [facility] ([facility]) Attender: Jalyn Johnson 08/05/2019 12:00:00 AM EDT [facility] ([facility]) Outpatient 08/01/2019 08:11:[address] [facility] TEMPMHCTelemed-Family and client 1 hr. Attender: Jalyn Johnson [facility] 07/29/2019 09:30:00 AM EDT - 07/29/2019 09:30:00 AM EDT [facility] ([facility]) Attender: Jalyn Johnson 07/29/2019 12:00:00 AM EDT [facility] ([facility]) [id number]"Psychotherapy Attender: Jalyn Weiss [facility] 07/23/2019 08:30:00 AM EDT - 07/23/2019 08:30:00 AM EDT [facility] ([facility]) Attender: Jalyn Johnson 07/23/2019 12:00:00 AM EDT [facility] ([facility]) [facility] Telemed Diag Eval no med Attender: Jalyn Weiss [facility] 07/22/2019 02:00:00 AM EDT - 07/22/2019 02:00:00 AM EDT [facility] ([facility]) Attender: Jalyn Johnson 07/22/2019 12:00:00 AM EDT [facility] ([facility]) [facility] [address] [place] [address] 07/20/2019 12:00:00 AM EDT eCW1 ([facility]) [facility] [address] [place] [address] 07/07/2019 12:00:00 AM EDT eCW1 ([facility]) [facility] [address] [place] [address] 07/06/2019 12:00:00 AM EDT eCW1 ([facility]) [facility] [address] [place] [address] 06/30/2019 12:00:00 AM EDT eCW1 ([facility]) Outpatient 06/25/2019 04:58:00 AM EDT [facility] Outpatient Attender: Dominique Jamilang/[place]/Waqas/R eindl 06/08/2019 10:45:00 AM EDT MEDENT ([facility]) Outpatient Attender: KENDALL Thornton/Ayah/Waqas/Reind l 05/31/2019 02:15:00 PM EDT MEDENT ([facility]) Outpatient Attender: Dominique Fnich/[place]/Waqas/R eindl 05/27/2019 11:30:00 AM EDT MEDENT ([facility]) [facility] [address] [facility] [address] 05/14/2019 12:00:00 AM EST eCW1 ([facility]) [facility] [address] [facility] [place] [address] 05/14/2019 12:00:00 AM EST eCW1 ([facility]) [facility] [address] [facility] [place] [address] 05/13/2019 12:00:00 AM EST eCW1 ([facility]) [facility] [address] [facility] [place] [address] 05/13/2019 12:00:00 AM EST eCW1 ([facility]) [facility] [address] [facility] [address] 03/22/2019 12:00:00 AM EST eCW1 (Critical access hospital) Outpatient Attender: BYRON CRANDALL 02/25/2019 12:00:00 A M EST [facility] Outpatient Attender: MIRELA GONZALEZ MD Physical Therapy 09:00:00 AM EST MEDENT ([facility]) Medications Medication Brand Name Start Date Product Form Dose Route Admi nistrative Instructions Pharmacy Instructions Status Indications Reaction Description Data Source(s) Ciprofloxacin 500 MG Oral Tablet [Cipro] Cipro 04/07/2020 12:00: 00 AM EST ORAL active MEDENT ([facility], ) Fexofenadine hydrochloride 60 MG Oral Tablet Loreta Allergy 04/07/2020 12:00:00 AM EST ORAL active MEDENT ([facility], ) cetirizine hydrochloride 10 MG Oral Capsule [Zyrtec] Zyrtec Allergy 04/07/2020 12:00:00 AM EST ORAL active M EDENT ([facility], ) Vitamin D-3 25 MCG (1000 UT) Vitamin D-3 25 MCG (1000 UT) 12:00:00 AM EST 2.0 {capsule} active Vitamin D- 3 25 MCG (1000 UT) eCW1 ([facility]) Vitamin D-3 25 MCG (1000 UT) Vitamin D-3 25 MCG (1000 UT) 12:00:00 AM EST 2.0 {capsule} active Vitamin D- 3 25 MCG (1000 UT) eCW1 ([facility]) Vitamin D-3 25 MCG (1000 UT) Vitamin D-3 25 MCG (1000 UT) 12:00:00 AM EST 2.0 {capsule} active Vitamin D- 3 25 MCG (1000 UT) eCW1 ([facility]) Vitamin D-3 25 MCG (1000 UT) Vitamin D-3 25 MCG (1000 UT) 12:00:00 AM EST 2.0 {capsule} active Vitamin D- 3 25 MCG (1000 UT) eCW1 ([facility]) Methylprednisolone 4 MG Oral Tablet [Medrol] Medrol 02/2020 12:00:00 AM EST active MEDENT ( [facility]) tramadol hydrochloride 50 MG Oral Tablet Tramadol HCL 01/20/2020 12:00:00 AM EST active [facility] ([facility]) Fluconazole 150 MG Oral Tablet [Diflucan] Diflucan 150 MG Di flucan 150 MG 07/06/2019 12:00:00 AM EDT 1.0 {tablet} suspended Diflucan 150 MG eCW1 ([facility]) Fluconazole 150 MG Oral Tablet [Diflucan] Diflucan 150 MG Di flucan 150 MG 07/06/2019 12:00:00 AM EDT 1.0 {tablet} suspended Diflucan 150 MG eCW1 ([facility]) Fluconazole 150 MG Oral Tablet [Diflucan] Diflucan 150 MG Di flucan 150 MG 07/06/2019 12:00:00 AM EDT 1.0 {tablet} suspended Diflucan 150 MG eCW1 ([facility]) Fluconazole 150 MG Oral Tablet [Diflucan] Diflucan 150 MG Di flucan 150 MG 07/06/2019 12:00:00 AM EDT active 1 tablet eCW1 ([facility]) Fluconazole 150 MG Oral Tablet [Diflucan] Diflucan 150 MG Di flucan 150 MG 07/06/2019 12:00:00 AM EDT 1.0 {tablet} suspended Diflucan 150 MG eCW1 ([facility]) Fluconazole 150 MG Oral Tablet [Diflucan] Diflucan 150 MG Di flucan 150 MG 07/06/2019 12:00:00 AM EDT 1.0 {tablet} suspended Diflucan 150 MG eCW1 ([facility]) Fluconazole 150 MG Oral Tablet [Diflucan] Diflucan 150 MG Di flucan 150 MG 07/06/2019 12:00:00 AM EDT 1.0 {tablet} active Diflucan 150 MG eCW1 ([facility]) Acetaminophen 325 MG / Oxycodone Hydrochloride 5 MG Or al Tablet [Percocet] Percocet 03/23/2019 12:00:00 AM EST ORAL active MEDENT ([facility]) 5-325 mg 03/23/2019 12:00:00 [...] type / Coverage type Policy ID Covered alliance party ID Covered alliance party's relationship to brand Policy Brand Plan Information [facility] [id number] SP [id number] [facility] [id number] SP [id number] [facility] [id number] S [id number] [facility] [id number] SP [id number] [facility] [id number] Self [id number] [facility] [id number] SP [id number] ANSI-Medicaid [id number] ANSI-Medicaid [id number] ANSI-Medicaid [id number] ANSI-Medicaid [id number] ANSI-Medicaid [id number] [facility] Health Maintenance Organization (HMO) [id number] Self [id number] MEDICAID [id number] SP [id number] [facility] PLAN [facility] [id number] SP [id number] [facility] Plan Commercial [id number] Self [id number] [facility] Commercial [id number] Self [id number] [facility] Commercial [id number] Self [id number] [facility] [id number] SP [id number] [facility] [id number] SP [id number] MEDICAID [id number] SP [id number] [facility] Health Maintenance Organization (HMO) Self Problems, Conditions, and Diagnoses Code Display Name Description Problem Type Effective Dates Data Source(s) F41.9 Anxiety disorder, unspecified Unspecified Anxiety Diso rder Condition 04/06/2020 12:00:00 AM EST [facility] ([facility]) F43.11 Post-traumatic stress disorder, acute Po st-traumatic stress disorder, acute Condition 04/06/2020 12:00:00 AM EST [facility] ([facility]) F43.11 Post-traumatic stress disorder, acute Po st-traumatic stress disorder, acute Condition 07/29/2019 12:00:00 AM EDT [facility] ([facility]) F41.9 Anxiety disorder, unspecified Unspecified Anxiety Diso rder Condition 07/29/2019 12:00:00 AM EDT [facility] ([facility]) E65 [id number] Abdominal pannus Problem 05/13/2019 12:00 :00 AM EST eCW1 ([facility]) I83.812 [id number] Varicose veins of left lower extremity wi th pain Problem 05/13/2019 12:00:00 AM EST eCW1 ([facility]) E65 [id number] Abdominal pannus Problem 05/13/2019 12:00 :00 AM EST eCW1 ([facility]) I83.812 [id number] Varicose veins of left lower extremity wi th pain Problem 05/13/2019 12:00:00 AM EST eCW1 ([facility]) Surgeries/Procedures Procedure Description Date Indications Data Source(s) TEMPMHCTelemed 30" Psychotherapy 021 12:00:00 AM EST - 04/06/2020 12:00:00 AM EST [facility] ([facility]) TEMPMHCTelemed 30" Psychotherapy 04/06/2020 12:00:00 A M EST [facility] ([facility]) Reduction Mammaplasty (Female Only) 04/04/2020 12:00:0 0 AM EST MEDENT ([facility]) TEMPMHCTelemed-Family and client 1 hr. 0 03/29/2020 12:00:00 AM EST - 03/29/2020 12:00:00 AM EST [facility] ([facility]) TEMPMHCTelemed-Family and client 1 hr. 03/29/2020 12:0 0:00 AM EST [facility] ([facility]) ECG ROUTINE ECG W/LEAST 12 LDS W/I&R 03/22/2020 12:00: 00 AM EST eCW1 ([facility]) TEMPMHCTelemed-Family and client 1 hr. 0 03/16/2020 12:00:00 AM EST - 03/16/2020 12:00:00 AM EST [facility] ([facility]) TEMPMHCTelemed-Family and client 1 hr. 03/16/2020 12:0 0:00 AM EST [facility] ([facility]) TEMPMHCTelemed-Family and client 1 hr. 1 04/26/2019 12:00:00 AM EST - 02/24/2020 12:00:00 AM EST [facility] ([facility]) TEMPMHCTelemed-Family and client 1 hr. 02/24/2020 12:0 0:00 AM EST [facility] ([facility]) RADIOLOGIC EXAM KNEE COMPLETE 4/MORE VIEWS 01/14/2020 12:00:00 AM EST MEDENT ([facility]) FAMILY PSYCHOTHERAPY W/PATIENT PRESENT 1 03/14/2019 12:00:00 AM EST - 01/13/2020 12:00:00 AM EST [facility] ([facility]) FAMILY PSYCHOTHERAPY W/PATIENT PRESENT 01/13/2020 12:0 0:00 AM EST [facility] ([facility]) TEMPMHCTelemed-Family and client 1 hr. 1 12:00:00 AM EDT - 12/16/2019 12:00:00 AM EDT [facility] ([facility]) TEMPMHCTelemed-Family and client 1 hr. 12/16/2019 12:0 0:00 AM EDT [facility] ([facility]) TEMPMHCTelemed-Family and client 1 hr. 0 11/25/2019 12:00:00 AM EDT - 11/25/2019 12:00:00 AM EDT [facility] ([facility]) TEMPMHCTelemed-Family and client 1 hr. 11/25/2019 12:0 0:00 AM EDT [facility] ([facility]) TEMPMHCTelemed-Family and client 1 hr. 0 11/11/2019 12:00:00 AM EDT - 11/11/2019 12:00:00 AM EDT [facility] ([facility]) TEMPMHCTelemed-Family and client 1 hr. 11/11/2019 12:0 0:00 AM EDT [facility] ([facility]) TEMPMHCTelemed 30" Psychotherapy 020 12:00:00 AM EDT - 09/09/2019 12:00:00 AM EDT [facility] ([facility]) TEMPMHCTelemed 30" Psychotherapy 09/09/2019 12:00:00 A M EDT [facility] ([facility]) [id number]"Psychotherapy 0 12:00:00 AM EDT - 09/02/2019 12:00:00 AM EDT [facility] ([facility]) [id number]"Psychotherapy 09/02/2019 12:00:00 AM EDT [facility] ([facility]) TEMPMHCTelemed-Family and client 1 hr. 0 08/23/2019 12:00:00 AM EDT - 08/23/2019 12:00:00 AM EDT [facility] ([facility]) TEMPMHCTelemed-Family and client 1 hr. 08/23/2019 12:0 0:00 AM EDT [facility] ([facility]) TEMPMHCTelemed-Family and client 1 hr. 0 08/16/2019 12:00:00 AM EDT - 08/16/2019 12:00:00 AM EDT [facility] ([facility]) TEMPMHCTelemed-Family and client 1 hr. 08/16/2019 12:0 0:00 AM EDT [facility] ([facility]) TEMPMHCTelemed 30" Psychotherapy 020 12:00:00 AM EDT - 08/10/2019 12:00:00 AM EDT [facility] ([facility]) TEMPMHCTelemed 30" Psychotherapy 08/10/2019 12:00:00 A M EDT [facility] ([facility]) [id number]"Psychotherapy 0 12:00:00 AM EDT - 08/10/2019 12:00:00 AM EDT [facility] ([facility]) [id number]"Psychotherapy 08/10/2019 12:00:00 AM EDT [facility] ([facility]) TEMPMHCTelemed-Family and client 1 hr. 0 08/05/2019 12:00:00 AM EDT - 08/05/2019 12:00:00 AM EDT [facility] ([facility]) TEMPMHCTelemed-Family and client 1 hr. 08/05/2019 12:0 0:00 AM EDT [facility] ([facility]) TEMPMHCTelemed-Family and client 1 hr. 0 07/29/2019 12:00:00 AM EDT - 07/29/2019 12:00:00 AM EDT [facility] ([facility]) TEMPMHCTelemed-Family and client 1 hr. 07/29/2019 12:0 0:00 AM EDT [facility] ([facility]) [id number]"Psychotherapy 0 12:00:00 AM EDT - 07/23/2019 12:00:00 AM EDT [facility] ([facility]) [id number]"Psychotherapy 07/23/2019 12:00:00 AM EDT [facility] ([facility]) [facility] Telemed Diag Eval no med 07/22/2019 12:00:00 AM EDT - 07/22/2019 12:00:00 AM EDT [facility] ([facility]) [facility] Telemed Diag Eval no med 07/22/2019 12:00:00 AM ED T [facility] ([facility]) Arthroscopy Knee Synovectomy Major 03/24/2019 12:00:00 AM EST MEDENT ([facility] ) ARTHRS KNE SURG W/MENISCECTOMY MED/LAT W/SHVG 03/24/19 20 12:00:00 AM EST MEDENT ([facility]) Results ID Date Data Source [id number] 04/04/2020 12:26:00 PM EST MEDENT ([facility], ) Name Value Range Interpretation Code Description Data Paula rce(s) Supporting Document(s) Surgical pathology study Laboratory test result MEDENT ([facility], ) FINAL DIAGNOSIS A - Breast, [...] fibrous parenchyma with no grossly apparent lesions. Crater And Packer sections in one block. B - Received in formalin labeled "left breast tissue, 331 grams" consists of multiple fragments of skin and attached fibroadipose tissue measuring 16 x 15 x 4.0 cm in aggregate. Sectioning through the specimen reveals lobulated fibroadipose tissue and fibrous parenchyma with no grossly apparent lesions. Crater And Packer sections in one block. -SV 04/05/2020 - 1337 Signed LUCAS HANCOCK MD 04/06/2020 1128 ID Date Data Source [id number] 03/30/2020 11:45:00 AM EST [facility] Name Value Range Interpretation Code Description Data Paula rce(s) Supporting Document(s) SARS coronavirus 2 RNA Not Detected [facility] This lab was ordered by [facility] and reported by [facility]. ID Date Data Source [id number] 02/23/2020 11:30:00 AM EST [facility] Name Value Range Interpretation Code Description Data Paula rce(s) Supporting Document(s) SARS coronavirus 2 RNA [facility] This lab was ordered by [facility] and reported by [facility]. ID Date Data Source [id number] 01/17/2020 12:00:00 AM EST [facility] oly Imaging Mirela Gonzalez MD Patient Name: NIVIA GAMEZ [facility] Date of : 1975[facility] Date of Exam: 01/17/2020ROSSY Damian [id number]#: Fax: [id number] EXAM: MRI KNEE RIGHT WITHOUT [...] above.5. Plica as described above.Accredited by the [employer] in MR.TUNG Asencio/Brad blackwell for referring VIVEK GAMEZ to our office. Electronically Signed - CRISTY MATHEW DO 01/18/20 12:16 Name Value Range Interpretation Code Description Data Paula rce(s) Supporting Document(s) ID Date Data Source [id number] 01/13/2020 12:00:00 AM EST [facility] Name Value Range Interpretation Code Description Data Paula rce(s) Supporting Document(s) SARS coronavirus 2 RNA [Presence] in Res piratory specimen by CHRISTIANO with probe detection [facility] and reported by [facility]. ID Date Data Source [id number] 10/07/2019 10:40:00 AM EDT [facility] Name Value Range Interpretation Code Description Data Paula rce(s) Supporting Document(s) SARS coronavirus 2 RNA [Presence] in Res piratory specimen by CHRISTIANO with probe detection NYSDOH This lab was ordered by [facility] a nd reported by [facility]. ID Date Data Source [id number] 09/27/2019 05:30:00 AM EDT [facility] Name Value Range Interpretation Code Description Data Paula rce(s) Supporting Document(s) SARS coronavirus 2 RNA [facility] This lab was ordered by [facility] and reported by [facility]. ID Date Data Source [id number] 09/23/2019 10:56:00 AM EDT [facility] Name Value Range Interpretation Code Description Data Paula rce(s) Supporting Document(s) SARS coronavirus 2 RNA [facility] This lab was ordered by [facility] and reported by [facility]. ID Date Data Source VITAMIN D 25-HYDROXY 05/13/2019 12:00:00 AM EST eCW1 ([facility]) Name Value Range Interpretation Code Description Data Paula rce(s) Supporting Document(s) 38.6 30.0-100.0 TOTAL 25(OH) VITAMIN D eC W1 ([facility]) Procedure Social History Code Duration Value Status Description Data Source(s ) Smoking 04/06/2020 12:00:00 AM EST Unknown if ever smoked comp leted Unknown if ever smoked [facility] ([facility]) Smoking 03/29/2020 12:00:00 AM EST Unknown if ever smoked comp leted Unknown if ever smoked [facility] ([facility]) Smoking 03/22/2020 12:00:00 AM EST Never Smoker completed Never S moker eCW1 ([facility]) Smoking 03/22/2020 12:00:00 AM EST Never Smoker completed Never S moker eCW1 ([facility]) Smoking 03/22/2020 12:00:00 AM EST Never Smoker completed Never S moker eCW1 ([facility]) Smoking 03/22/2020 12:00:00 AM EST Never Smoker completed Never S moker eCW1 ([facility]) Smoking 03/16/2020 12:00:00 AM EST Unknown if ever smoked comp leted Unknown if ever smoked [facility] ([facility]) Smoking 02/24/2020 12:00:00 AM EST Unknown if ever smoked comp leted Unknown if ever smoked [facility] ([facility]) Smoking 02/11/2020 12:00:00 AM EST Never Smoker completed Never S moker eCW1 ([facility]) Smoking 02/11/2020 12:00:00 AM EST Never Smoker completed Never S moker eCW1 ([facility]) Smoking 02/11/2020 12:00:00 AM EST Never Smoker completed Never S moker eCW1 ([facility]) Smoking 02/11/2020 12:00:00 AM EST Never Smoker completed Never S moker eCW1 ([facility]) Smoking 02/11/2020 12:00:00 AM EST Never Smoker completed Never S moker eCW1 ([facility]) Smoking 01/13/2020 12:00:00 AM EST Unknown if ever smoked comp leted Unknown if ever smoked [facility] ([facility]) Smoking 01/04/2020 12:00:00 AM EDT Never Smoker completed Never S moker eCW1 ([facility]) Smoking 12/16/2019 12:00:00 AM EDT Unknown if ever smoked comp leted Unknown if ever smoked [facility] ([facility]) Smoking 11/25/2019 12:00:00 AM EDT Unknown if ever smoked comp leted Unknown if ever smoked [facility] ([facility]) Smoking 11/11/2019 12:00:00 AM EDT Unknown if ever smoked comp leted Unknown if ever smoked [facility] ([facility]) Smoking 09/09/2019 12:00:00 AM EDT Unknown if ever smoked comp leted Unknown if ever smoked [facility] ([facility]) Smoking 09/02/2019 12:00:00 AM EDT Unknown if ever smoked comp leted Unknown if ever smoked [facility] ([facility]) Smoking 08/23/2019 12:00:00 AM EDT Unknown if ever smoked comp leted Unknown if ever smoked [facility] ([facility]) Smoking 08/16/2019 12:00:00 AM EDT Unknown if ever smoked comp leted Unknown if ever smoked [facility] ([facility]) Smoking 08/10/2019 12:00:00 AM EDT Unknown if ever smoked comp leted Unknown if ever smoked [facility] ([facility]) Smoking 08/05/2019 12:00:00 AM EDT Unknown if ever smoked comp leted Unknown if ever smoked [facility] ([facility]) Smoking 07/29/2019 12:00:00 AM EDT Unknown if ever smoked comp leted Unknown if ever smoked [facility] ([facility]) Smoking 07/23/2019 12:00:00 AM EDT Unknown if ever smoked comp leted Unknown if ever smoked [facility] ([facility]) Smoking 07/22/2019 12:00:00 AM EDT Unknown if ever smoked comp leted Unknown if ever smoked [facility] ([facility]) Smoking 05/31/2019 12:00:00 AM EDT Non Smoker completed Non Smoke r MEDENT ([facility], ) Vital Signs ID Date Data Source UNK Name Value Range Interpretation Code Description Data Source(s) Body temperature 97.7 [degF] 97.7 [degF] [facility] ([facility], ) Body temperature 96.1 [degF] 96.1 [degF] [facility] ([facility], ) Diastolic blood pressure 70 mm[Hg] 70 mm[Hg] eCW1 ([facility]) Systolic blood pressure 116 mm[Hg] 116 mm[Hg] e CW1 ([facility]) Body temperature 98.0 [degF] 98.0 [degF] eCW1 ( [facility]) Respiratory rate 16 /min 16 /min eCW1 ([facility]) Heart rate 72 /min 72 /min eCW1 ([facility]) Body mass index (BMI) [Ratio] 30.82 kg/m2 30.82 kg/m2 W1 ([facility]) Body height 63 [in_i] 63 [in_i] eCW1 ([facility]) Body weight 174 [lb_av] 174 [lb_av] eCW1 ([facility]) Diastolic blood pressure 76 mm[Hg] 76 mm[Hg] eCW1 ([facility]) Systolic blood pressure 122 mm[Hg] 122 mm[Hg] e CW1 ([facility]) Body mass index (BMI) [Ratio] 32.06 kg/m2 32.06 kg/m2 [facility] ([facility]) Body height 63 [in_i] 63 [in_i] eCW1 ([facility]) Body weight 181 [lb_av] 181 [lb_av] eCW1 ([facility]) Diastolic blood pressure 82 mm[Hg] 82 mm[Hg] eCW1 ([facility]) Systolic blood pressure 122 mm[Hg] 122 mm[Hg] e CW1 ([facility]) Body mass index (BMI) [Ratio] 30.64 kg/m2 30.64 kg/m2 eCW1 ([facility]) Body height 63 [in_i] 63 [in_i] eCW1 ([facility]) Body weight 78.47 kg 78.47 kg eCW1 ([facility]) Body weight 173 [lb_av] 173 [lb_av] eCW1 ([facility]) Body surface area Derived from formula 1.87 m2 1.87 m2 [facility] Body weight 81.648 kg 81.648 kg [facility] ([facility]) [place] body weight 120 [lb_av] 120 [lb_av] MEDEN T ([facility]) Body mass index (BMI) [Ratio] 30.9 kg/m2 30.9 k g/m2 [facility] ([facility]) Body weight 180.00 [lb_av] 180.00 [lb_av] MEDEN T ([facility]) Body height 64 [in_i] 64 [in_i] [facility] ([facility]) 5'4" Body temperature 97.4 [degF] 97.4 [degF] [facility] ([facility]) Respiratory rate 16 /min 16 /min [facility] ( [facility]) Heart rate 80 /min 80 /min [facility] ([facility]) Diastolic blood pressure 82 mm[Hg] 82 mm[Hg] MEDENT ([facility], ) Systolic blood pressure 118 mm[Hg] 118 mm[Hg] M EDENT ([facility], ) Diastolic blood pressure 62 mm[Hg] 62 mm[Hg] eCW1 ([facility]) Systolic blood pressure 124 mm[Hg] 124 mm[Hg] e CW1 ([facility]) Body mass index (BMI) [Ratio] 30.68 kg/m2 30.68 kg/m2 eCW1 ([facility]) Body height 63 [in_us] 63 [in_us] eCW1 ([facility]) Body weight Measured 173.2 [lb_av] 173.2 [lb_av ] eCW1 ([facility]) Body weight 77.112 kg 77.112 kg MED[facility] ([facility], ) Body mass index (BMI) [Ratio] 29.2 kg/m2 29.2 k g/m2 [facility] ([facility]) Body weight 170.00 [lb_av] 170.00 [lb_av] MEDEN T ([facility]) Body height 64 [in_i] 64 [in_i] [facility] ([facility]) 5'4" Body temperature 96.9 [degF] 96.9 [degF] [facility] ([facility]) Diastolic blood pressure 70 mm[Hg] 70 mm[Hg] [facility] ([facility]) Systolic blood pressure 120 mm[Hg] 120 mm[Hg] M EDENT ([facility]) Body weight 77.112 kg 77.112 kg [facility] ([facility]) Body mass index (BMI) [Ratio] 29.2 kg/m2 29.2 k g/m2 [facility] ([facility]) Body weight 170.00 [lb_av] 170.00 [lb_av] MEDEN T ([facility]) Body height 64 [in_i] 64 [in_i] [facility] ([facility]) 5'4" Body temperature 98.6 [degF] 98.6 [degF] [facility] ([facility]) Respiratory rate 14 /min 14 /min [facility] ( [facility]) Heart rate 68 /min 68 /min [facility] ([facility]) Diastolic blood pressure 72 mm[Hg] 72 mm[Hg] [facility] Systolic blood pressure 124 mm[Hg] 124 mm[Hg] [facility] Body weight 75.978 kg 75.978 kg [facility] ([facility]) Body mass index (BMI) [Ratio] 29.7 kg/m2 29.7 k g/m2 [facility] Body weight 167.50 [lb_av] 167.50 [lb_av] MEDEN T ([facility]) Body height 63 [in_i] 63 [in_i] [facility] ([facility]) 5'3" Body temperature 98.2 [degF] 98.2 [degF] [facility] ([facility]) Diastolic blood pressure 68 mm[Hg] 68 mm[Hg] [facility] ([facility]) Systolic blood pressure 122 mm[Hg] 122 mm[Hg] [facility] Diastolic blood pressure 63 mm[Hg] 63 mm[Hg] eCW1 ([facility]) Systolic blood pressure 123 mm[Hg] 123 mm[Hg] e CW1 ([facility]) Body temperature 98.4 [degF] 98.4 [degF] eCW1 ( [facility]) Respiratory rate 17 /min 17 /min eCW1 ([facility]) Heart rate 74 /min 74 /min eCW1 ([facility]) Body mass index (BMI) [Ratio] 29.93 kg/m2 29.93 kg/m2 W1 ([facility]) Body height 63 [in_us] 63 [in_us] eCW1 ([facility]) Body weight Measured 169 [lb_av] 169 [lb_av] eC W1 ([facility]) Body mass index (BMI) [Ratio] 26.4 kg/m2 26.4 k g/m2 [facility] ([facility]) Body weight 154.00 [lb_av] 154.00 [lb_av] MEDEN T ([facility]) Body height 64 [in_i] 64 [in_i] LULA ([facility]) 5'4" Patient Treatment Plan of Care Planned Activity Planned Date Details Description Data Source (s) Vitamin D-3 25 MCG (1000 UT) 03/27/2020 12:00:00 AM EST eCW1 ([facility]) Vitamin D-3 25 MCG (1000 UT) 03/27/2020 12:00:00 AM EST eCW1 ([facility]) Vitamin D-3 25 MCG (1000 UT) 03/27/2020 12:00:00 AM EST eCW1 ([facility]) Vitamin D-3 25 MCG (1000 UT) 03/27/2020 12:00:00 AM EST eCW1 ([facility]) Fluconazole 150 MG Oral Tablet [Diflucan] 07/06/2019 12:00:00 AM ED T eCW1 ([facility]) Fluconazole 150 MG Oral Tablet [Diflucan] 07/06/2019 12:00:00 AM ED T eCW1 ([facility])
== END 2020-04-10 13:45 | disposition left against medical advice (07) ==
LOC: M ED 12:12
DX: Z53.21 Procedure and treatment not carried out due to patient leaving prior to being seen by health care provider (principal)

== ENCOUNTER 2020-07-26 12:25 | Inpatient (IN) | payer OTHER ==
[~2020-07-26] VITALS: Ht 162.6 cm; Wt 74.8 kg
[2020-07-26] MEDS ORDERED: ACET1TAB55 PO (12:50)
[2020-07-26] MEDS ORDERED: diphenhydrAMINE 12.5MG/5ML ELIXIR UDC PO ONE (14:45)
[2020-07-26] MEDS ORDERED: ACETAMINOPHEN 500 MG TAB PO ONE ×2 (14:45→16:20)
[2020-07-26] MEDS ORDERED: NS 500 ML IV ONE (14:45)
[2020-07-26] MEDS ORDERED: predniSONE 20 MG TAB PO ONE (14:45)
[2020-07-26] MEDS: COMBIVENT RESPIMAT 100-20MCG INHALER 4GM INH SCH ×3 (15:05→15:25)
[2020-07-26 15:22] LABS: ABG O2 SATURATION 98.3 % (95.0-99.0); ABG PARTIAL PRESSURE CO2 34.8 mmHg (35.0-45.0); ABG PARTIAL PRESSURE O2 109.5 mmHg (75.0-100.0); ABG STANDARD HCO3 27.2 MEQ/L (22.0-26.0); ABG TOTAL CO2 27.1 MEQ/L (22.0-29.0); ABG pH (ARTERIAL) 7.492 UNITS (7.350-7.450)
--- NOTE | 2020-07-26 16:06 | REP ---
INDICATION: Coronavirus workup. COMPARISON: 07/24/2019 PA and lateral exam TECHNIQUE: Portable FINDINGS: The technique utilized in obtaining the radiograph has magnified the cardiac silhouette and accentuated the interstitial markings. The superior mediastinal structures are midline. The cardiac silhouette is unremarkable in size, shape, and position. The diaphragmatic surfaces of the lungs are regular, and the costophrenic angles are clear. The pulmonary [place] are clear. The imaged osseous structures are intact. IMPRESSION: There is no acute cardiopulmonary disease. <Electronically signed by Ralph Mascorro > 07/26/20 [id number]
[2020-07-26] MEDS ORDERED: ACETAMINOPHEN TAB 650MG DOSE (2X325MG) PO ONE (16:15)
[2020-07-26 16:17] LABS: BASO % 0.4 % (0.0-1.0); EOS # 0.1 10^3/uL (0.0-0.5); EOS % 2.1 % (0.0-3.0); HEMATOCRIT 39.4 % (36.0-47.0); HEMOGLOBIN 12.7 g/dl (12.0-15.5); LYMPH % 36.6 % (24.0-44.0); MEAN CORPUSCULAR HEMOGLOBIN 27.5 pg (27.0-33.0); MEAN CORPUSCULAR HGB CONC 32.2 g/dl (32.0-36.5); MEAN CORPUSCULAR VOLUME 85.5 fl (80.0-96.0); MONO # 0.4 10^3/uL (0.0-0.8); MONO % 13.7 % (2.0-8.0); NEUTROPHILS # 1.3 10^3/uL (1.5-8.5); NEUTROPHILS % 46.8 % (36.0-66.0); PLATELET COUNT, AUTOMATED 111 10^3/uL (150-450); RED BLOOD COUNT 4.61 10^6/uL (4.00-5.40); WHITE BLOOD COUNT 2.8 10^3/uL (4.0-10.0)
[2020-07-26 16:28] LABS: INR 0.95; PARTIAL THROMBOPLASTIN TIME 27.9 SECONDS (24.2-38.5); PROTHROMBIN TIME 12.9 SECONDS (12.5-14.3)
[2020-07-26] MEDS ORDERED: [UNRECOGNIZED DRUG - CODE] IM (16:28)
[2020-07-26] MEDS ORDERED: BENZ-18 PO (16:28)
[2020-07-26] MEDS ORDERED: ACET500T15 PO (16:28)
[2020-07-26] MEDS ORDERED: AZIT500T5 PO (16:28)
[2020-07-26 16:31] LABS: D-DIMER QUANT 662.12 ng/ml (<500)
[2020-07-26 16:45] LABS: ALBUMIN 3.8 GM/DL (3.2-5.2); ALT/SGPT 26 U/L (12-78); BILIRUBIN,TOTAL 0.3 MG/DL (0.2-1.0); BLOOD UREA NITROGEN 10 MG/DL (7-18); CALCIUM LEVEL 8.5 MG/DL (8.5-10.1); CARBON DIOXIDE LEVEL 26 MEQ/L (21-32); CHLORIDE LEVEL 105 MEQ/L (98-107); CK-MB VALUE MASS < 1.0 NG/ML (<3.6); CPK CREATINE PHOSPHOKINASE 59 U/L (26-192); CREATININE FOR GFR 0.63 MG/DL (0.55-1.30); FERRITIN 16 NG/ML (8-252); GLOMERULAR FILTRATION RATE > 60.0 (>58); GLUCOSE, FASTING 107 MG/DL (70-100); LDH LACTATE DEHYDROGENASE 158 U/L (84-246); MAGNESIUM LEVEL 1.7 MG/DL (1.8-2.4); MB/CK RELATIVE INDEX 1.69 (< OR =4); POTASSIUM SERUM 3.7 MEQ/L (3.5-5.1); SODIUM LEVEL 137 MEQ/L (136-145); TOTAL PROTEIN 7.1 GM/DL (6.4-8.2); TROPONIN I < 0.02 NG/ML (< 0.10)
[2020-07-26] MEDS ORDERED: ISOVUE-370 76% 100ML VIAL As Ordered ONE (16:54)
[2020-07-26] MEDS ORDERED: MAG SULF 1GM/100ML (MAG RUN) 1 GM in IV 1 EA IV ONE (17:00)
[2020-07-26] MEDS ORDERED: NS 1,000 ML IV ONE (17:30)
[2020-07-26] MEDS ORDERED: ONDANSETRON 4MG/2ML VIAL IV PRN (17:30)
--- NOTE | 2020-07-26 17:32 | HPEPDOC ---
General Date of Admission 07/26/20 Date of Service: July 26, 2020 Chief Complaint The patient is a 44-year-old female admitted with a reason for visit of Covid +, Worsening Symptoms. Source: Patient, RN/MD History of Present Illness 44-year-old female with past medical history of asthma, gastric bypass surgery has been sick for 4 days. . She has been having fever, chills, cough, shortness of breath , malaise, nausea, vomiting, diarrhea, loss of smell, loss of taste. She was tested for Covid and was found to be positive on July 24. She went to the urgent care where she was started on prednisone 20 mg, azithromycin and given albuterol inhaler. She was using her inhaler every 4 hours, however, continued to have worsening shortness of breath and cough severe diarrhea and vomiting. She has been unable to to keep any food down so came to the emergency room. In the ED and presentation she was noted to be 87% in room air at rest. She was given 3 hoil-op-[id number] treatments with albuterol. After that there was improvement in oxygenation to 96%. Chest x-ray did not show any acute cardiopulmonary disease. Patient is being admitted for Covid -19 infection, asthma exacerbation with hypoxia. Home Medications Scheduled Aspirin (Aspirin EC) 81 Mg Tablet.dr, 81 MG PO DAILY Cyanocobalamin (Vitamin B-12) (Vitamin B-12) 1,000 Mcg/1 Ml Drops, 1,000 MCG IM Q2WK, (Reported) Fluticasone/Vilanterol (Breo Ellipta 100-25 Mcg INH) 1 Each Blst.w.dev, 1 PUFF PO DAILY Pantoprazole Sodium (Pantoprazole Sodium) 40 Mg Tablet.dr, 40 MG PO DAILY Prednisone (Prednisone) 10 Mg Tablet, 10 MG PO TAPER Take 4 tabs daily x 3 days, then 3 tabs daily x 3 days, then 2 tabs daily x 3 days, then 1 tab daily x 3 days and stop Scheduled PRN Acetaminophen (Acetaminophen) 500 Mg Tablet, 500 MG PO Q6H PRN for PAIN / FEVER, (Reported) Albuterol Sulfate (Proair Hfa) 8.5 Gm Hfa.aer.ad, 2 PUFF INH Q4-6HP PRN for wheezing Benzonatate (Benzonatate) 100 Mg Capsule, 100 MG PO Q4H PRN for COUGH, (Reported) Allergies Coded Allergies: ondansetron (Verified Allergy, Severe, TONGUE SWELLING, 04/04/20) Contrast Media (Verified Allergy, Intermediate, HIVES, 04/04/20) piperacillin (Verified Allergy, Intermediate, FACIAL SWELLING, 07/26/20) tazobactam (Verified Allergy, Intermediate, FACIAL SWELLING, 07/26/20) cortisone (Verified Adverse Reaction, Mild, ELEVATED BP, FACIAL FLUSHING, 07/26/20) Past Medical History Medical History ASTHMA SAVANNAH-EN-Y GASTRIC BYPASS INSOMNIA HIATAL 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 Left greater saphenous vein radiofrequency ablation in 10/2019 Family History Patient is adapted. Social History * Smoker: non-smoker Alcohol: rarely Drugs: denies A-FIB/CHADSVASC A-FIB History Current/History of A-Fib/PAF?: No Review of Systems Constitutional: Reports: Chills, Fever, Malaise, Weakness, Fatigue Eyes: Denies: Pain, Vision change ENT: Reports: Head Aches, Sore Throat Skin: Denies: Rash, Lesions, Breakdown Pulmonary: Reports: Dyspnea, Cough Gastrointestinal: Reports: Nausea, Vomiting Genitourinary: Denies: Dysuria, Frequency, Incontinence, Retention Hematologic: Denies: Bruising, Bleeding Excessively Physical Examination General Exam: Positive: Alert, Cooperative, No Acute Distress Eye Exam: Positive: PERRLA, Conjunctiva & lids normal, EOMI; Negative: Sclera icteric ENT Exam: Positive: Atraumatic, Mucous membr. moist/pink, Pharynx Normal Neck Exam: Positive: Supple; Negative: JVD, thyromegaly Chest Exam: Positive: Wheezing, Other (bilateral crackles) Heart Exam: Positive: Rate Normal, Regular Rhythm, Normal S1, Normal S2; Negative: Murmurs, Rubs Abdomen Exam: Positive: Normal bowel sounds, Soft; Negative: Tenderness, Hepatospenomegaly Extremity Exam: Positive: Normal pulses; Negative: Clubbing, Cyanosis, Edema Vital Signs Vital Signs Date Time Temp Pulse Resp B/P (MAP) Pulse Ox O2 Delivery O2 Flow Rate FiO2 07/26/20 16:17 100.5 80 22 120/63 (82) 96 Room Air Laboratory Data Labs 24H Laboratory Tests 2 07/26/20 15:10: Blood Gas Bicarbonate Standard 27.2H, Arterial Blood pH 7.492H, Arterial Blood Partial Pressure CO2 34.8L, Arterial Blood Partial Pressure O2 109.5H, Arterial Blood Total CO2 27.1, Arterial Blood HCO3 26.0, Arterial Blood Base Excess 3.0H, Arterial Blood Oxygen Saturation 98.3 07/26/20 15:50: Immature Granulocyte % (Auto) 0.4, Neutrophils (%) (Auto) 46.8, Lymphocytes (%) (Auto) 36.6, Monocytes (%) (Auto) 13.7H, Eosinophils (%) (Auto) 2.1, Basophils (%) (Auto) 0.4, Neutrophils # (Auto) 1.3L, Lymphocytes # (Auto) 1.0L, Monocytes # (Auto) 0.4, Eosinophils # (Auto) 0.1, Basophils # (Auto) 0.0, Nucleated Red Blood Cells % (auto) 0.0, Urine Color YELLOW, Urine Appearance HAZY, Urine pH 6.0, Urine Specific [place] 1.018, Urine Protein NEGATIVE, Urine Glucose (UA) NEGATIVE, Urine Ketones NEGATIVE, Urine Blood NEGATIVE, Urine Nitrite NEGATIVE, Urine Bilirubin NEGATIVE, Urine Urobilinogen 0.2, Urine Leukocyte Esterase NEGATIVE, Urine WBC (Auto) 0, Urine RBC (Auto) 2, Urine Hyaline Casts (Auto) 0, Urine Bacteria (Auto) NEGATIVE, Urine Squamous Epithelial Cells 1, Urine Sperm (Auto) CBC/BMP Laboratory Tests 07/26/20 15:50 Microbiology Microbiology 07/26/20 Blood Culture, Received Pending 07/26/20 Blood Culture, Received Pending Assessment/Plan 44-year-old female with past medical history of asthma, gastric bypass surgery has been sick for 4 days. . She has been having fever, chills, cough, shortness of breath , malaise, nausea, vomiting, diarrhea, loss of smell, loss of taste. She was tested for Covid and was found to be positive on July 24. She went to the urgent care where she was started on prednisone 20 mg, azithromycin and given albuterol inhaler. She was using her inhaler every 4 hours, however, continued to have worsening shortness of breath and cough wheezing, severe diarrhea and vomiting. She has been unable to to keep any food down so came to the emergency room. In the ED and presentation she was noted to be 87% in room air at rest. She was given 3 iudp-fk-rxlu treatments with albuterol. After that there was improvement in oxygenation to 96%. Chest x-ray did not show any acute cardiopulmonary disease. Patient is being admitted for Covid -19 infection causing asthma exacerbation with the hypoxia with intractable vomiting and diarrhea. COVID-19 infection with hypoxia continue albuterol, will add fluticasone dexamethasone Covid labs ordered If pro-calcitonin is elevated. Will give antibiotics Oxygen supplementation as needed symptomatic treatment with tylenol, zofran, ppi, IVF. Asthma exacerbation precipitated by viral infection Will give albuterol, and dexamethasone Plan / VTE VTE Prophylaxis Ordered?: Yes YOGESH DAVIS MD July 26, 2020 16:43
--- NOTE | 2020-07-26 17:40 | REPVR ---
PROCEDURE INFORMATION: Exam: CTA Chest With Contrast Exam date and time: 07/26/2020 5:01 PM Age: 44 years old Clinical indication: Other: Pleuritic chest pain, positive covid TECHNIQUE: Imaging protocol: Computed tomographic angiography of the chest with contrast. 3D rendering (Not supervised by radiologist): MIP and/or 3D reconstructed images were created by the technologist. Radiation optimization: All CT scans at this facility use at least one of these dose optimization techniques: automated exposure control; mA and/or kV adjustment per patient size (includes targeted exams where dose is matched to clinical indication); or iterative reconstruction. Contrast material: ISOVUE 370; Contrast volume: 75 ml; Contrast route: INTRAVENOUS (IV); COMPARISON: NM PORTABLE CHEST X-RAY 07/26/2020 3:47 PM FINDINGS: Pulmonary arteries: Normal. No pulmonary emboli. Aorta: Unremarkable. No aortic aneurysm. No aortic dissection. Lungs: 6.8 mm pulmonary nodule left lower lobe (series 402, image 48) that may connect with a peripheral bronchus. Mucus impacted bronchus involving a peripheral branch in the right lower lobe (series 402, image 60). 3.9 mm nodule right lower lobe (series 402, image 6) Pleural spaces: Unremarkable. No pneumothorax. No pleural effusion. Heart: Unremarkable. No cardiomegaly. No pericardial effusion. Lymph nodes: Unremarkable. No enlarged lymph nodes. Stomach and bowel: Surgical clips noted at the level of the gastric cardia and extending along the greater curvature of the stomach. Bones/joints: Unremarkable. No acute fracture. Soft tissues: Unremarkable. IMPRESSION: 1. No acute pulmonary embolism. 2. Bilateral pulmonary nodules. These are adjacent to and may connect with small peripheral bronchi implying the possibility of mucous impaction. Follow-up CT scan in 6 months. Electronically signed by: Mary Palomo On 07/26/2020 17:40:14 PM
--- NOTE | 2020-07-26 17:55 | ECGEPIP ---
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
[2020-07-26] MEDS: ASPIRIN 81MG ENTERIC TABLET PO SCH (18:13)
[2020-07-26 18:46] VITALS: BP 121/61
[2020-07-26 19:05] VITALS: O2SAT 98
[2020-07-26 20:00] VITALS: BP 123/60
[2020-07-26] MEDS: PANTOPRAZOLE 40MG TAB (PROTONIX) PO SCH (20:17)
--- NOTE | 2020-07-26 20:24 | ECGEPIP ---
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 : 1975 Requested By: BARRY Wake[place] PA-C Order Number: [id number] Reading MD: Jeffrey Hannah Measurements Intervals [place] Rate: 89 P: 57 PA: 152 QRS: 23 QRSD: 72 T: 23 QT: 330 QTc: 401 Interpretive Statements Normal sinus rhythm Nonspecific T wave abnormality NO PRIORS FOR COMPARISON Electronically Signed on 07-26-2020 20:24:00 EDT by Jeffrey Hannah
[2020-07-26 20:45] VITALS: O2SAT 97
[2020-07-27 04:00] VITALS: BP 104/66
[2020-07-27 07:54] LABS: HEMATOCRIT 35.6 % (36.0-47.0); HEMOGLOBIN 11.4 g/dl (12.0-15.5); LYMPH # 0.7 10^3/uL (1.5-5.0); LYMPH % 34.1 % (24.0-44.0); MEAN CORPUSCULAR HEMOGLOBIN 27.7 pg (27.0-33.0); MEAN CORPUSCULAR VOLUME 86.6 fl (80.0-96.0); MONO # 0.3 10^3/uL (0.0-0.8); MONO % 12.6 % (2.0-8.0); NEUTROPHILS # 1.1 10^3/uL (1.5-8.5); NEUTROPHILS % 53.3 % (36.0-66.0); PLATELET COUNT, AUTOMATED 128 10^3/uL (150-450); RED BLOOD COUNT 4.11 10^6/uL (4.00-5.40); WHITE BLOOD COUNT 2.1 10^3/uL (4.0-10.0)
[2020-07-27] MEDS: PANTOPRAZOLE 40MG TAB (PROTONIX) PO SCH (07:54)
[2020-07-27] MEDS: ASPIRIN 81MG ENTERIC TABLET PO SCH (07:54)
[2020-07-27 08:25] LABS: BLOOD UREA NITROGEN 11 MG/DL (7-18); CALCIUM LEVEL 8.2 MG/DL (8.5-10.1); CARBON DIOXIDE LEVEL 28 MEQ/L (21-32); CHLORIDE LEVEL 107 MEQ/L (98-107); CREATININE FOR GFR 0.42 MG/DL (0.55-1.30); GLOMERULAR FILTRATION RATE > 60.0 (>58); GLUCOSE, FASTING 90 MG/DL (70-100); MAGNESIUM LEVEL 2.4 MG/DL (1.8-2.4); SODIUM LEVEL 141 MEQ/L (136-145)
[2020-07-27] MEDS ORDERED: dexameTHASONE 4 MG/ML 1ML VIAL (J1100 PER 1MG) IV SCH (09:00)
[2020-07-27] MEDS ORDERED: ENOXAPARIN 40MG/0.4ML SYRINGE (J1650 PER 10MG) SC SCH (09:00)
[2020-07-27 09:23] VITALS: O2SAT 96
[2020-07-27] MEDS ORDERED: BREO1INH PO (12:44)
[2020-07-27] MEDS ORDERED: ASPI-551 PO (12:44)
[2020-07-27] MEDS ORDERED: PRED10TA2 PO (12:44)
[2020-07-27] MEDS ORDERED: PANT40TA29 PO (12:44)
[2020-07-27] MEDS ORDERED: PROAAER10 INH (12:44)
--- NOTE | 2020-07-27 15:24 | DS.PDOC ---
Discharge Summary General Date of Admission July 26, 2020 at 17:00 Date of Discharge 07/27/20 Discharge Summary PROCEDURES PERFORMED DURING STAY: [None]. DISCHARGE DIAGNOSES: Asthma Exacerbation Mucous plugging COVID- 19 infection SECONDARY DIAGNOSIS: SAVANNAH-EN-Y GASTRIC BYPASS 2014 INSOMNIA HIATAL HERNIA SPINAL MENINGITIS IN HIGH SCHO[employer] GERD Lower ex Venous insufficiency Bilateral mastopexy and small breast reduction in mar 2020 ROBOTIC ASSISTED LAPAROSCOPIC BILATERAL SALPINGO- OOPHORECTOMY ON 02/28/2020. Left greater saphenous vein radiofrequency ablation in 10/2019 COMPLICATIONS/CHIEF COMPLAINT: Covid +, Hypoxia. HOSPITAL COURSE: 44-year-old female with past medical history of asthma, gastric bypass surgery has been sick for 4 days. . She has been having fever, chills, cough, shortness of breath , malaise, nausea, vomiting, diarrhea, loss of smell, loss of taste. She was tested for Covid and was found to be positive on July 24. She went to the urgent care where she was started on prednisone 20 mg, azithromycin and given albuterol inhaler. She was using her inhaler every 4 hours, however, continued to have worsening shortness of breath and cough wheezing, severe diarrhea and vomiting. She has been unable to to keep any food down so came to the emergency room. In the ED and presentation she was noted to be 87% in room air at rest. She was given 3 [id number] treatments with albuterol. After that there was improvement in oxygenation to 96%. Chest x-ray did not show any acute cardiopulmonary disease. Patient was admitted for Covid- 19 infection with Asthma exacerbation with hypoxia. Did not have any further hypoxia overnight after getting steroids and albuterol. COVID -19 viral infection ASA, steroids symptomatic treatment with tylenol, ppi, cough drops. Asthma exacerbation precipitated by viral infection Will give albuterol, Prednisone taper and breo. DISCHARGE MEDICATIONS: Please see below. ALLERGIES: Please see below. PHYSICAL EXAMINATION ON DISCHARGE: VITAL SIGNS: Please see below. General Exam: Positive: Alert, Cooperative, No Acute Distress Eye Exam: Positive: PERRLA, Conjunctiva & lids normal, EOMI; Negative: Sclera icteric ENT Exam: Positive: Atraumatic, Mucous membr. moist/pink, Pharynx Normal Neck Exam: Positive: Supple; Negative: JVD, thyromegaly Chest Exam: Positive: Wheezing, Other (bilateral crackles) Heart Exam: Positive: Rate Normal, Regular Rhythm, Normal S1, Normal S2; Negative: Murmurs, Rubs Abdomen Exam: Positive: Normal bowel sounds, Soft; Negative: Tenderness, Hepatosplenomegaly Extremity Exam: Positive: Normal pulses; Negative: Clubbing, Cyanosis, Edema LABORATORY DATA: Please see below. IMAGING: CT angio of Chest: FINDINGS: Pulmonary arteries: Normal. No pulmonary emboli. Aorta: Unremarkable. No aortic aneurysm. No aortic dissection. Lungs: 6.8 mm pulmonary nodule left lower lobe (series 402, image 48) that may connect with a peripheral bronchus. Mucus impacted bronchus involving a peripheral branch in the right lower lobe (series 402, image 60). 3.9 mm nodule right lower lobe (series 402, image 6) Pleural spaces: Unremarkable. No pneumothorax. No pleural effusion. Heart: Unremarkable. No cardiomegaly. No pericardial effusion. Lymph nodes: Unremarkable. No enlarged lymph nodes. Stomach and bowel: Surgical clips noted at the level of the gastric cardia and extending along the greater curvature of the stomach. Bones/joints: Unremarkable. No acute fracture. Soft tissues: Unremarkable. IMPRESSION: 1. No acute pulmonary embolism. 2. Bilateral pulmonary nodules. These are adjacent to and may connect with small peripheral bronchi implying the possibility of mucous impaction. Follow-up CT scan in 6 months. ACTIVITY: [As tolerated]. DIET: Regular DISCHARGE PLAN: Home with home services DISCHARGE INSTRUCTIONS: Patient given pulse oximeter and instructed to check oxyger saturations 3 to 4 times a day then after walking for 6 minutes. Instructed to come back to ED or call PMD if oxygen drops below 92%. Follow up with PMD in 1 week DISCHARGE CONDITION: [Stable]. TIME SPENT ON DISCHARGE: 35 minutes. Vital Signs/I&Os Vital Signs Date Time Temp Pulse Resp B/P (MAP) Pulse Ox O2 Delivery O2 Flow Rate FiO2 07/27/20 09:23 96 Room Air 07/27/20 04:00 97.6 98 18 104/66 (79) Laboratory Data Labs 24H Laboratory Tests 2 07/26/20 15:50: Immature Granulocyte % (Auto) 0.4, Neutrophils (%) (Auto) 46.8, Lymphocytes (%) (Auto) 36.6, Monocytes (%) (Auto) 13.7H, Eosinophils (%) (Auto) 2.1, Basophils (%) (Auto) 0.4, Neutrophils # (Auto) 1.3L, Lymphocytes # (Auto) 1.0L, Monocytes # (Auto) 0.4, Eosinophils # (Auto) 0.1, Basophils # (Auto) 0.0, Nucleated Red Blood Cells % (auto) 0.0, Prothrombin Time 12.9, Prothromb Time International Ratio 0.95, Activated Partial Thromboplast Time 27.9, Fibrinogen 453H, D-Dimer, Quantitative 662.12H, Urine Color YELLOW, Urine Appearance HAZY, Urine pH 6.0, Urine Specific Roy 1.018, Urine Protein NEGATIVE, Urine Glucose (UA) NEGATIVE, Urine Ketones NEGATIVE, Urine Blood NEGATIVE, Urine Nitrite NEGATIVE, Urine Bilirubin NEGATIVE, Urine Urobilinogen 0.2, Urine Leukocyte Esterase NEGATIVE, Urine WBC (Auto) 0, Urine RBC (Auto) 2, Urine Hyaline Casts (Auto) 0, Urine Bacteria (Auto) NEGATIVE, Urine Squamous Epithelial Cells 1, Urine Sperm (Auto) , Anion Gap 6L, Glomerular Filtration Rate > 60.0, Lactic Acid Level 1.2, Calcium Level 8.5, Magnesium Level 1.7L, Ferritin 16, Total Bilirubin 0.3, Aspartate Amino Transf (AST/SGOT) 18, Alanine Aminotransferase (ALT/SGPT) 26, Alkaline Phosphatase 67, Lactate Dehydrogenase 158, Total Creatine Kinase 59, Creatine Kinase MB < 1.0, Creatine Kinase MB Relative Index 1.69, Troponin I < 0.02, C-Reactive Protein, Quantitative 0.30, Total Protein 7.1, Albumin 3.8, Albumin/Globulin Ratio 1.2, Procalcitonin <0.05 07/27/20 06:31: Immature Granulocyte % (Auto) 0.0, Neutrophils (%) (Auto) 53.3, Lymphocytes (%) (Auto) 34.1, Monocytes (%) (Auto) 12.6H, Eosinophils (%) (Auto) 0.0, Basophils (%) (Auto) 0.0, Neutrophils # (Auto) 1.1L, Lymphocytes # (Auto) 0.7L, Monocytes # (Auto) 0.3, Eosinophils # (Auto) 0.0, Basophils # (Auto) 0.0, Nucleated Red Blood Cells % (auto) 0.0, Anion Gap 6L, Glomerular Filtration Rate > 60.0, Calcium Level 8.2L, Magnesium Level 2.4 CBC/BMP Laboratory Tests 07/26/20 15:50 07/27/20 06:31 Microbiology Microbiology 07/26/20 Blood Culture, Received Pending 07/26/20 Blood Culture, Received Pending Discharge Medications Scheduled Aspirin (Aspirin EC) 81 Mg Tablet.dr, 81 MG PO DAILY Cyanocobalamin (Vitamin B-12) (Vitamin B-12) 1,000 Mcg/1 Ml Drops, 1,000 MCG IM Q2WK, (Reported) Fluticasone/Vilanterol (Breo Ellipta 100-25 Mcg INH) 1 Each Blst.w.dev, 1 PUFF PO DAILY Pantoprazole Sodium (Pantoprazole Sodium) 40 Mg Tablet.dr, 40 MG PO DAILY Prednisone (Prednisone) 10 Mg Tablet, 10 MG PO TAPER Take 4 tabs daily x 3 days, then 3 tabs daily x 3 days, then 2 tabs daily x 3 days, then 1 tab daily x 3 days and stop Scheduled PRN Acetaminophen (Acetaminophen) 500 Mg Tablet, 500 MG PO Q6H PRN for PAIN / FEVER, (Reported) Albuterol Sulfate (Proair Hfa) 8.5 Gm Hfa.aer.ad, 2 PUFF INH Q4-6HP PRN for wheezing Benzonatate (Benzonatate) 100 Mg Capsule, 100 MG PO Q4H PRN for COUGH, (Reported) Allergies Coded Allergies: ondansetron (Verified Allergy, Severe, TONGUE SWELLING, 04/04/20) Contrast Media (Verified Allergy, Intermediate, HIVES, 04/04/20) piperacillin (Verified Allergy, Intermediate, FACIAL SWELLING, 07/26/20) tazobactam (Verified Allergy, Intermediate, FACIAL SWELLING, 07/26/20) cortisone (Verified Adverse Reaction, Mild, ELEVATED BP, FACIAL FLUSHING, 07/26/20) YOGESH DAVIS MD July 27, 2020 15:24
== END 2020-07-27 14:50 | disposition home health service (06) | DRG 137 ==
LOC: M ED 12:25 → M ED INP 17:00 → ENRESERV 17:59 → M 4MAIN 18:43
PROVIDERS: ADMIT Internal Medicine Nephrology; ATTEND Internal Medicine Nephrology
PROC: 3E0333Z Introduction of Anti-inflammatory into Peripheral Vein, Percutaneous Approach (ICD-10-PCS; principal; 2020-07-27)
DX: U07.1 COVID-19 (principal); J45.901 Unspecified asthma with (acute) exacerbation; Z98.84 Bariatric surgery status; R09.02 Hypoxemia; Z79.82 Long term (current) use of aspirin; Z79.899 Other long term (current) drug therapy; Z88.1 Allergy status to other antibiotic agents; Z88.8 Allergy status to other drugs, medicaments and biological substances; Z91.041 Radiographic dye allergy status; K21.9 Gastro-esophageal reflux disease without esophagitis; Z90.79 Acquired absence of other genital organ(s); Z90.49 Acquired absence of other specified parts of digestive tract; J98.09 Other diseases of bronchus, not elsewhere classified; G47.00 Insomnia, unspecified